=== PATIENT | female | born 1945 | race Caucasian/White ===

== ENCOUNTER 2017-05-23 08:58 | Inpatient (IN) | payer OTHER, MEDICARE ==
[2017-05-22 09:27] VITALS: BMI 43.6
--- NOTE | 2017-05-23 11:09 | HP ---
[facility] - Chief Complaint Chief Complaint: right knee hematoma/infection - Past Medical History Allergies/Adverse Reactions: Allergies Allergy/AdvReac Type Severity Reaction Status Date / Time ciprofloxacin [From Cipro] Allergy "RASH ON Verified 05/23/17 10:09 LEGS ciprofloxacin HCl Allergy "RASH ON Verified 05/23/17 10:09 [From Cipro] LEGS montelukast sodium Allergy "HALLUCINAT Verified 05/23/17 10:09 [From Singulair] IONS" rofecoxib [From Vioxx] Allergy "DIDN'T Verified 05/23/17 10:09 FEEL RIGHT" Sulfa (Sulfonamide Allergy "RASH ON Verified 05/23/17 10:09 Antibiotics) LEGS" - Current Medications Current Medications: Home Medications Medication Instructions Recorded Beclomethasone Dipropionate [Qvar] 8.7 gm IH DAILY 05/22/17 Calcium Carbonate [Calcium] 1,000 mg PO BID 05/22/17 Cephalexin [Keflex] 500 mg PO TID 05/22/17 Cinnamon Bark [Cinnamon] 1,000 mg PO DAILY 05/22/17 Cyclosporine [Restasis] 1 each OU BID 05/22/17 Desmopressin Acetate 0.4 mg PO HS 05/22/17 Fesoterodine Fumarate [Toviaz] 8 mg PO HS 05/22/17 Fluticasone Prop 0.05% Nasal 2 spray NS HS 05/22/17 [Flonase -] Folic Acid - 3 mg PO DAILY 05/22/17 Furosemide [Lasix] 20 mg PO DAILY 05/22/17 Ipratropium/Albuterol Sulfate 4 gm IH DAILY 05/22/17 [Combivent Respimat Inhal [place]] Losartan Potassium 100 mg PO DAILY 05/22/17 Meloxicam [Mobic (Nf) -] 15 mg PO DAILY 05/22/17 Multivit-Min/FA/Lycopen/Lutein 1 each PO DAILY 05/22/17 [Centrum Silver Tablet] Oxycodone HCl/Acetaminophen 1 each PO PRN PRN 05/22/17 [Oxycodone-Acetaminophen 5-325] Ropinirole HCl 1 mg PO DAILY 05/22/17 Ropinirole HCl 3 mg PO HS 05/22/17 Rosuvastatin Calcium [Crestor] 10 mg PO HS 05/22/17 Topiramate 100 mg PO BID 05/22/17 Ubidecarenone [Co Q10] 200 mg PO HS 05/22/17 Warfarin Sodium [Coumadin] 5 mg PO DAILY 05/22/17 Satellite Physical Exam - Physical Examination Vital Signs: Vital Signs Period Temp Pulse Resp BP Sys/Dennis Pulse Ox Last 24 Hr 97.8 F 78 20 132/82 96 General Appearance: Well Nourished, Well Developed, Alert & Oriented x3, Obese ENT: Clear Lung: Normal air movement Heart: Regular rate & rhythm Extremities: Other (right knee- + open wound, + swelling, + erythema, rom 0-90, calf soft, nt) Neurological: Intact, Alert, Oriented Satellite Impression/Plan - Impression/Plan Impression: right knee hematoma/infection Operative Procedure: right knee I & D, vac dressing placement Date to be Performed: 05/23/17
[2017-05-23] MEDS ORDERED: KETAMINE HCL 200 MG/20 ML VIAL ONE (11:25)
[2017-05-23] MEDS ORDERED: MIDAZOLAM HCL 2 MG/2 ML SINGLE DOSE VIAL ONE (11:25)
[2017-05-23] MEDS ORDERED: ceFAZolin SODIUM 1 GM VIAL ONE (11:31)
[2017-05-23] MEDS ORDERED: hydrALAZINE HCL 20 MG/ML VIAL ONE (11:34)
[2017-05-23] MEDS ORDERED: ceFAZolin SODIUM 1 GM VIAL IVPB ONE (11:34)
--- NOTE | 2017-05-23 11:50 | OP ---
Operative Note - Note: Operative Date: 05/23/17 ([facility]) Pre-Operative Diagnosis: right knee non-healing wound/hematoma Operation: right knee I & D, vac dressing placement Post-Operative Diagnosis: Same as Pre-op Surgeon: Tom Lopez Drum Plater: Anup Briggs Anesthesiologist/BAKER PIE: Shirley Trinidad Anesthesia: MAC Operative Report Dictated: Yes
[2017-05-23] MEDS ORDERED: ONDANSETRON 4 MG/2 ML VIAL IVPUSH PRN (11:55)
--- NOTE | 2017-05-23 12:37 | OP ---
DATE OF OPERATION: 05/23/2017 PREOPERATIVE DIAGNOSIS: Large wound, anterior aspect of the right knee. POSTOPERATIVE DIAGNOSIS: Large wound, anterior aspect of the right knee. PROCEDURE: Irrigation and debridement and application of vacuum-assisted closure dressing. SURGICAL ATTENDING: Tom Lopez MD GRINDER NEEDLE TIP: ANA M Michaels ANESTHESIA: IV sedation. CLOSURE: VAC dressing. COMPLICATIONS: None. CONDITION: To recovery room in stable condition. DESCRIPTION OF OPERATIVE PROCEDURE: Patient taken to the operating room on May 23, 2017. IV sedation was administered by the anesthesiologist. IV Kefzol was administered prior to the case. The packing inside the wound on the anterior aspect of the knee was removed. The right lower extremity was prepped and draped in the usual sterile fashion. The wound on the anterior aspect of the knee medial to the longitudinal incision measured approximately 2 inches by 2 inches and extended underneath and was undermined a few inches in each direction. This was pulse antibiotic irrigated with antibiotic irrigation, but no defects in the fascia into the knee were detected. A great deal of antibiotic irrigation was irrigated throughout the incision. After it was nice and clean and only healthy tissue was encountered, the wound was dried all around and inside the incision. A VAC pad was deployed into the wound and then the VAC dressing was applied. Good seal was obtained and it was hooked up to the VAC machine and achieved a good seal with good suction on the wound. The patient was awakened from anesthesia and transferred to the recovery room in stable condition. No complications. Estimated blood loss negligible. Marleen CRISTINA/[id number]
[2017-05-23] MEDS: LACTATED RINGERS SOLUTION 1,000 ML IV SCH (14:00)
[2017-05-23] MEDS ORDERED: oxyCODONE HCL 5 MG TABLET PO PRN (14:25)
[2017-05-23] MEDS: oxyCODONE HCL 5 MG TABLET PO PRN (15:19)
[2017-05-23] MEDS: HYDROmorphone HCL CARPU-JECT 1 MG/1 ML DISP.SYRIN IVPUSH PRN ×2 (16:42→21:44)
[2017-05-23] MEDS ORDERED: CEFAZOLIN 1 GM in DEXTROSE 5%-WATER - 50 ML IVPB SCH (19:30)
[2017-05-23] MEDS ORDERED: PT OWN MED DRAWER 7, Y5N ONE (21:28)
[2017-05-23] MEDS: CEFAZOLIN 1 GM in DEXTROSE 5%-WATER - 50 ML IVPB SCH (21:40)
[2017-05-23] MEDS: ROSUVASTATIN CA 10 MG TABLET (FP) PO SCH (21:41)
[2017-05-23] MEDS: rOPINIRole HCL 3 MG TABLET PO SCH (21:42)
[2017-05-23] MEDS ORDERED: PATIENT'S OWN MEDICATION (NON-FORMULARY) (Cyclosporine [Restasis] 1 EACH) OU SCH (22:00)
[2017-05-23] MEDS ORDERED: PATIENT'S OWN MEDICATION (NON-FORMULARY) (Fesoterodine Fumarate [Toviaz] 8 MG) PO SCH (22:00)
[2017-05-23] MEDS: TOPIRAMATE 100 MG TABLET PO SCH (22:56)
[2017-05-23] MEDS: DESMOPRESSIN ACETATE 0.2 MG TABLET PO SCH (22:56)
[2017-05-24] MEDS: CEFAZOLIN 1 GM in DEXTROSE 5%-WATER - 50 ML IVPB SCH ×2 (04:53→17:36)
[2017-05-24] MEDS: HYDROmorphone HCL CARPU-JECT 1 MG/1 ML DISP.SYRIN IVPUSH PRN ×2 (05:53→13:38)
[2017-05-24] MEDS ORDERED: ONDANSETRON 4 MG/2 ML VIAL IVPUSH PRN (09:10)
[2017-05-24] MEDS ORDERED: ONDANSETRON 4 MG/2 ML VIAL ONE (09:13)
[2017-05-24] MEDS ORDERED: PATIENT'S OWN MEDICATION (NON-FORMULARY) (Ipratropium/Albuterol Sulfate [Combivent Respima IH SCH (10:00)
[2017-05-24] MEDS ORDERED: PATIENT'S OWN MEDICATION (NON-FORMULARY) (Beclomethasone Dipropionate [Qvar] 8.7 GM) IH SCH (10:00)
[2017-05-24] MEDS ORDERED: PT OWN MED DRAWER 7, Y5N ONE ×3 (11:43→22:05)
[2017-05-24] MEDS: LOSARTAN POTASSIUM 50 MG TABLET (FP) PO SCH (11:52)
[2017-05-24] MEDS: rOPINIRole HCL 1 MG TABLET (FP) PO SCH (11:52)
[2017-05-24] MEDS: FUROSEMIDE 20 MG TABLET (FP) PO SCH (11:52)
[2017-05-24] MEDS: TOPIRAMATE 100 MG TABLET PO SCH ×2 (11:53→21:01)
[2017-05-24] MEDS: LACTATED RINGERS SOLUTION 1,000 ML IV SCH (12:09)
--- NOTE | 2017-05-24 14:39 | PN ---
Progress Note (short form) - Note Progress Note: Anesthesia postop note 71 y/o F s/p TIVA for i&d right knee POD#1, alert and oriented, c/o pain, vss No anesthesia complications.
--- NOTE | 2017-05-24 16:00 | PN ---
Progress Note (short form) - Note Progress Note: FULL CONSULT DICTATED BY DOCTOR LENRosa M CONTINUE VAC, ABX,VASCULAR CONSULT
--- NOTE | 2017-05-24 16:24 | PN ---
DATE OF VISIT: 05/24/2017 Patient's VAC is in place. Good suction fit. Minimal drainage. There is some erythema underneath the adhesive plastic dressing. Might be slightly more than yesterday. We will keep the patient on Kefzol for another 24 hours. She also was initially complaining of some increased pain in her calf. We did an ultrasound which is equivocal. I will have a vascular surgeon evaluate her for possible treatment, but on physical exam, her calf is soft, nontender, and she has good range of motion with no change in her physical exam from before. Therefore, we will keep the VAC going. She is on her Coumadin, and I will see her tomorrow, see how she is doing. ZAK ESPINAL M.D. [id number]
[2017-05-24 16:42] LABS: INR 1.16 (0.82-1.09); PROTHROMBIN TIME (PATIENT) 12.8 SEC (9.98-11.88)
[2017-05-24] MEDS ORDERED: ceFAZolin SODIUM 1 GM VIAL ONE (17:01)
[2017-05-24] MEDS ORDERED: DEXTROSE 5%-WATER - 50 ML IVPB ONE (17:01)
[2017-05-24] MEDS: WARFARIN NA 5 MG TABLET (UD) PO SCH (17:36)
[2017-05-24] MEDS: DESMOPRESSIN ACETATE 0.2 MG TABLET PO SCH (21:00)
[2017-05-24] MEDS: oxyCODONE HCL 5 MG TABLET PO PRN (21:00)
[2017-05-24] MEDS: ROSUVASTATIN CA 10 MG TABLET (FP) PO SCH (21:00)
[2017-05-24] MEDS: rOPINIRole HCL 3 MG TABLET PO SCH (21:01)
[2017-05-25] MEDS ORDERED: ceFAZolin SODIUM 1 GM VIAL ONE ×2 (01:05→09:33)
[2017-05-25] MEDS ORDERED: DEXTROSE 5%-WATER - 50 ML IVPB ONE ×2 (01:06→09:33)
[2017-05-25] MEDS: CEFAZOLIN 1 GM in DEXTROSE 5%-WATER - 50 ML IVPB SCH ×2 (01:08→09:38)
[2017-05-25] MEDS: oxyCODONE HCL 5 MG TABLET PO PRN ×3 (03:20→19:35)
[2017-05-25 08:44] LABS: INR 1.16 (0.82-1.09); PROTHROMBIN TIME (PATIENT) 12.8 SEC (9.98-11.88)
[2017-05-25] MEDS ORDERED: HEPARIN NA (PORCINE) 5,000 UNITS/ML 1ML VIAL IVPUSH PRN ×3 (09:02→09:04)
--- NOTE | 2017-05-25 09:02 | PN ---
Progress Note (short form) - Note Progress Note: Vascular Surgery Pt seen and examined. US reviewed -- there is no dvt in both legs. Pt has a history of a multitude of DVT's in the past. She is on life long coumadin. She stopped the coumadin 2 days prior to coming for the I&d. Coumadin is now restarted. Will bridge with IV heparin. Can be dC home once INR is therapeutic. Pedro ewing DO
[2017-05-25] MEDS ORDERED: HEPARIN INFUSION - 500 ML IVPB SCH (09:15)
[2017-05-25] MEDS ORDERED: PT OWN MED DRAWER 7, Y5N ONE ×2 (09:32→21:30)
[2017-05-25] MEDS: HYDROmorphone HCL CARPU-JECT 1 MG/1 ML DISP.SYRIN IVPUSH PRN (09:37)
[2017-05-25] MEDS: rOPINIRole HCL 1 MG TABLET (FP) PO SCH (09:38)
[2017-05-25] MEDS: TOPIRAMATE 100 MG TABLET PO SCH ×2 (09:38→21:31)
[2017-05-25] MEDS: FUROSEMIDE 20 MG TABLET (FP) PO SCH (09:38)
[2017-05-25] MEDS: LOSARTAN POTASSIUM 50 MG TABLET (FP) PO SCH (09:38)
--- NOTE | 2017-05-25 10:39 | PN ---
Progress Note (short form) - Note Progress Note: Ortho Pt seen and examined s/p right knee I&D, vac placement pod #2 Selected Entries 05/25/17 06:00 Temperature 98.2 F Pulse Rate 74 Respiratory 20 Rate Blood Pressure 113/64 Laboratory Tests 05/25/17 07:50 INR 1.[address], +erythema, nvi a/p PT, wbat continue IV abx heparin bridge until INR therapeutic Coumadin d/c planning
[2017-05-25] MEDS: LACTATED RINGERS SOLUTION 1,000 ML IV SCH (11:24)
[2017-05-25 16:01] LABS: ALBUMIN 2.9 g/dl (3.4-5.0); ANION GAP 8 (8-16); CALCIUM 8.2 mg/dL (8.5-10.1); CO2 27 mmol/L (21-32); GLUCOSE,RANDOM 125 mg/dL (74-106)
[2017-05-25 16:04] LABS: ALK PHOS 58 U/L (45-117); BILIRUBIN,TOTAL 0.4 mg/dL (0.2-1.0); CREATININE 0.7 mg/dL (0.55-1.02); SGOT/AST 14 U/L (15-37); SGPT/ALT 20 U/L (12-78); TOT PROT 5.6 g/dl (6.4-8.2)
[2017-05-25] MEDS: WARFARIN NA 5 MG TABLET (UD) PO SCH (17:29)
[2017-05-25] MEDS: ENOXAPARIN NA (PORCINE) 40 MG/0.4 ML DISP.SYRIN SQ SCH (17:29)
[2017-05-25] MEDS: rOPINIRole HCL 3 MG TABLET PO SCH (21:31)
[2017-05-25] MEDS: DESMOPRESSIN ACETATE 0.2 MG TABLET PO SCH (21:31)
[2017-05-25] MEDS: ROSUVASTATIN CA 10 MG TABLET (FP) PO SCH (21:31)
[2017-05-26] MEDS: oxyCODONE HCL 5 MG TABLET PO PRN ×4 (00:02→21:24)
[2017-05-26 07:48] LABS: MCH 28.9 pg (25.7-33.7); MCHC 33.1 g/dl (32.0-36.0); MEAN CELL VOLUME 87.3 fl (80-96); MEAN PLT VOLUME 6.9 fl (7.5-11.1); PLATELET COUNT 211 K/MM3 (134-434); RDW 15.5 % (11.6-15.6); WHITE BLOOD COUNT 9.8 K/mm3 (4.0-10.0)
[2017-05-26 09:10] LABS: INR 1.28 (0.82-1.09); PROTHROMBIN TIME (PATIENT) 14.2 SEC (9.98-11.88)
[2017-05-26] MEDS ORDERED: DEXTROSE 5%-WATER 100 ML IVPB ONE ×2 (10:59→16:52)
[2017-05-26] MEDS ORDERED: PT OWN MED DRAWER 7, Y5N ONE ×2 (10:59→21:00)
[2017-05-26] MEDS ORDERED: ceFAZolin SODIUM 1 GM VIAL ONE ×2 (10:59→16:52)
[2017-05-26] MEDS: rOPINIRole HCL 1 MG TABLET (FP) PO SCH (11:18)
[2017-05-26] MEDS: ENOXAPARIN NA (PORCINE) 40 MG/0.4 ML DISP.SYRIN SQ SCH (11:18)
[2017-05-26] MEDS: LOSARTAN POTASSIUM 50 MG TABLET (FP) PO SCH (11:19)
[2017-05-26] MEDS: TOPIRAMATE 100 MG TABLET PO SCH ×2 (11:19→21:20)
[2017-05-26] MEDS: FUROSEMIDE 20 MG TABLET (FP) PO SCH (11:19)
[2017-05-26] MEDS: CEFAZOLIN 1 GM in DEXTROSE 5%-WATER 100 ML IVPB SCH ×2 (11:24→17:15)
[2017-05-26] MEDS: WARFARIN NA 5 MG TABLET (UD) PO SCH (17:16)
[2017-05-26] MEDS: ACETAMINOPHEN 325 MG TABLET (FP) PO PRN (17:16)
[2017-05-26] MEDS ORDERED: oxyCODONE HCL 5 MG TABLET PO PRN (18:24)
[2017-05-26] MEDS: rOPINIRole HCL 3 MG TABLET PO SCH (21:21)
[2017-05-26] MEDS: ROSUVASTATIN CA 10 MG TABLET (FP) PO SCH (21:22)
[2017-05-26] MEDS: DESMOPRESSIN ACETATE 0.2 MG TABLET PO SCH (23:42)
[2017-05-27] MEDS ORDERED: DEXTROSE 5%-WATER 100 ML IVPB ONE ×3 (00:56→16:25)
[2017-05-27] MEDS ORDERED: ceFAZolin SODIUM 1 GM VIAL ONE ×3 (00:56→16:25)
[2017-05-27] MEDS: CEFAZOLIN 1 GM in DEXTROSE 5%-WATER 100 ML IVPB SCH ×3 (01:16→18:03)
[2017-05-27] MEDS ORDERED: PT OWN MED DRAWER 7, Y5N ONE ×2 (05:57→10:12)
[2017-05-27] MEDS: oxyCODONE HCL 5 MG TABLET PO PRN ×2 (06:08→21:27)
[2017-05-27] MEDS: ACETAMINOPHEN 325 MG TABLET (FP) PO PRN (06:10)
[2017-05-27 08:44] LABS: MCH 29.3 pg (25.7-33.7); MCHC 33.7 g/dl (32.0-36.0); MEAN CELL VOLUME 86.9 fl (80-96); MEAN PLT VOLUME 7.3 fl (7.5-11.1); PLATELET COUNT 209 K/MM3 (134-434); RDW 15.9 % (11.6-15.6)
[2017-05-27] MEDS: ENOXAPARIN NA (PORCINE) 40 MG/0.4 ML DISP.SYRIN SQ SCH (10:14)
[2017-05-27] MEDS: LOSARTAN POTASSIUM 50 MG TABLET (FP) PO SCH (10:17)
[2017-05-27] MEDS: FUROSEMIDE 20 MG TABLET (FP) PO SCH (10:17)
[2017-05-27] MEDS: [UNRECOGNIZED DRUG - OTHER] PO SCH (10:18)
[2017-05-27] MEDS: MELOXICAM 15 MG PO SCH (10:18)
[2017-05-27] MEDS: rOPINIRole HCL 1 MG TABLET (FP) PO SCH (10:19)
[2017-05-27] MEDS: TOPIRAMATE 100 MG TABLET PO SCH ×2 (10:20→21:24)
[2017-05-27] MEDS: WARFARIN NA 5 MG TABLET (UD) PO SCH (18:03)
[2017-05-27] MEDS: DESMOPRESSIN ACETATE 0.2 MG TABLET PO SCH (21:22)
[2017-05-27] MEDS: ROSUVASTATIN CA 10 MG TABLET (FP) PO SCH (21:23)
[2017-05-27] MEDS: rOPINIRole HCL 3 MG TABLET PO SCH (21:25)
[2017-05-28] MEDS ORDERED: DEXTROSE 5%-WATER 100 ML IVPB ONE (02:37)
[2017-05-28] MEDS ORDERED: ceFAZolin SODIUM 1 GM VIAL ONE (02:37)
[2017-05-28] MEDS: CEFAZOLIN 1 GM in DEXTROSE 5%-WATER 100 ML IVPB SCH (02:40)
[2017-05-28] MEDS: oxyCODONE HCL 5 MG TABLET PO PRN ×4 (05:36→20:40)
[2017-05-28 07:48] LABS: MCHC 33.1 g/dl (32.0-36.0); MEAN CELL VOLUME 87.5 fl (80-96); PLATELET COUNT 205 K/MM3 (134-434); RDW 15.9 % (11.6-15.6); WHITE BLOOD COUNT 7.2 K/mm3 (4.0-10.0)
--- NOTE | 2017-05-28 08:51 | PN ---
Progress Note (short form) - Note Progress Note: ID Full note dictated S/P knee surgery with placement of VAC for ? Hematoma related to fall at home underlying TKR bilaterally Selected Entries 05/28/17 06:00 Temperature 98.7 F Pulse Rate 78 Respiratory 18 Rate Blood Pressure 132/69 Weight 274 lb Assessment Unclear any infection Post VAC dressing Plan Stop antibiotic Place consult to Hospitalist for medical management Laboratory Tests 05/25/17 05/28/17 14:45 06:00 WBC 7.2 Hgb 11.1 Plt Count 205 Random Glucose 125 H Total Bilirubin 0.4 AST 14 L ALT 20 Problem List - Problems (1) Hematoma Code(s): T14.8 - OTHER INJURY OF UNSPECIFIED BODY REGION (2) Encounter for attention to vacuum-assisted closure (VAC) device Code(s): IIF3410 -
[2017-05-28] MEDS ORDERED: PT OWN MED DRAWER 7, Y5N ONE ×2 (09:34→21:26)
[2017-05-28] MEDS: ENOXAPARIN NA (PORCINE) 40 MG/0.4 ML DISP.SYRIN SQ SCH (09:38)
[2017-05-28] MEDS: LOSARTAN POTASSIUM 50 MG TABLET (FP) PO SCH (09:38)
[2017-05-28] MEDS: FUROSEMIDE 20 MG TABLET (FP) PO SCH (09:38)
[2017-05-28] MEDS: rOPINIRole HCL 1 MG TABLET (FP) PO SCH (09:39)
[2017-05-28] MEDS: TOPIRAMATE 100 MG TABLET PO SCH ×2 (09:40→21:51)
[2017-05-28] MEDS: [UNRECOGNIZED DRUG - OTHER] PO SCH (09:41)
[2017-05-28] MEDS: MELOXICAM 15 MG PO SCH (09:41)
--- NOTE | 2017-05-28 11:14 | CONSULT ---
Consultation: REQUESTING PROVIDER: Dr. Ramirez Arguello CONSULT REQUEST: We have been asked to medically evaluate this patient for medical management post op. PCP: Dr. Joyce Ortho: Dr. ESPINAL HISTORY OF PRESENT ILLNESS: 71 yo F with significant PMHx DVT's(on coumadin), Bilateral total knee replacements, and CHF presented for irrigation and debridement of large right knee wound. On 05/21/17 she fell at home tripped over a vacuum cord. She subsequently went to see her orthopedic surgeon who told her to stop her coumadin and come to hospital in 2 days for irrigation and debridement. Tolerated the procedure well. Wound vac was placed. Started on Lovenox. Pain is well controlled. Currently denies CP,SOB, palpitations, abd. pain, N/V. PMHx: DVT's(on coumadin), restless leg, chronic migraines, neurogenic bladder, chronic neck pain(herniated disc) and CHF PSHX: bilateral total knee replacement, CCY, Appendectomy, hysterectomy, cystocele sling Social: Lives with , non smoker, denies ETOH or drug use. Allergies Allergy/AdvReac Type Severity Reaction Status Date / Time ciprofloxacin [From Cipro] Allergy "RASH ON Verified 05/23/17 10:09 LEGS ciprofloxacin HCl Allergy "RASH ON Verified 05/23/17 10:09 [From Cipro] LEGS montelukast sodium Allergy "HALLUCINAT Verified 05/23/17 10:09 [From Singulair] IONS" rofecoxib [From Vioxx] Allergy "DIDN'T Verified 05/23/17 10:09 FEEL RIGHT" Sulfa (Sulfonamide Allergy "RASH ON Verified 05/23/17 10:09 Antibiotics) LEGS" Home Medications Medication Instructions Recorded Beclomethasone Dipropionate [Qvar] 8.7 gm IH DAILY 05/22/17 Calcium Carbonate [Calcium] 1,000 mg PO BID 05/22/17 Cephalexin [Keflex] 500 mg PO TID 05/22/17 Cinnamon Bark [Cinnamon] 1,000 mg PO DAILY 05/22/17 Cyclosporine [Restasis] 1 each OU BID 05/22/17 Desmopressin Acetate 0.4 mg PO HS 05/22/17 Fesoterodine Fumarate [Toviaz] 8 mg PO HS 05/22/17 Fluticasone Prop 0.05% Nasal 2 spray NS HS 05/22/17 [Flonase -] Folic Acid - 3 mg PO DAILY 05/22/17 Furosemide [Lasix] 20 mg PO DAILY 05/22/17 Ipratropium/Albuterol Sulfate 4 gm IH DAILY 05/22/17 [Combivent Respimat Inhal [place]] Losartan Potassium 100 mg PO DAILY 05/22/17 Meloxicam [Mobic (Nf) -] 15 mg PO DAILY 05/22/17 Multivit-Min/FA/Lycopen/Lutein 1 each PO DAILY 05/22/17 [Centrum Silver Tablet] Oxycodone HCl/Acetaminophen 1 each PO PRN PRN 05/22/17 [Oxycodone-Acetaminophen 5-325] Ropinirole HCl 1 mg PO DAILY 05/22/17 Ropinirole HCl 3 mg PO HS 05/22/17 Rosuvastatin Calcium [Crestor] 10 mg PO HS 05/22/17 Topiramate 100 mg PO BID 05/22/17 Ubidecarenone [Co Q10] 200 mg PO HS 05/22/17 Warfarin Sodium [Coumadin] 5 mg PO DAILY 05/22/17 REVIEW OF SYSTEMS: CONSTITUTIONAL: Absent: fever, chills, diaphoresis, generalized weakness, malaise, loss of appetite, weight change HEENT: Absent: rhinorrhea, nasal congestion, throat pain, throat swelling, difficulty swallowing, mouth swelling, ear pain, eye pain, visual changes CARDIOVASCULAR: Absent: chest pain, syncope, palpitations, irregular heart rate, lightheadedness , peripheral edema RESPIRATORY: Absent: cough, shortness of breath, dyspnea with exertion, orthopnea, wheezing, stridor, hemoptysis GASTROINTESTINAL: Absent: abdominal pain, abdominal distension, nausea, vomiting, diarrhea, constipation, melena, hematochezia GENITOURINARY: Absent: dysuria, frequency, urgency, hesitancy, hematuria, flank pain, genital pain MUSCULOSKELETAL: joint swelling, back pain, neck pain Absent: myalgia, arthralgia, SKIN: Absent: rash, itching, pallor HEMATOLOGIC/IMMUNOLOGIC: Absent: easy bleeding, easy bruising, lymphadenopathy, frequent infections ENDOCRINE: Absent: unexplained weight gain, unexplained weight loss, heat intolerance, cold intolerance NEUROLOGIC: headache Absent: , focal weakness or paresthesias, dizziness, unsteady gait, seizure, mental status changes, bladder or bowel incontinence PSYCHIATRIC: Absent: anxiety, depression, suicidal or homicidal ideation, hallucinations. PHYSICAL EXAMINATION Vital Signs - 24 hr 05/27/17 05/27/17 05/27/17 15:49 20:23 20:27 Temperature 98.2 F 99.1 F Pulse Rate 85 81 Respiratory 18 20 Rate Blood Pressure 145/61 129/72 O2 Sat by Pulse 96 Oximetry (%) 05/28/17 05/28/17 06:00 10:12 Temperature 98.7 F Pulse Rate 78 87 Respiratory 18 Rate Blood Pressure 132/69 O2 Sat by Pulse 97 Oximetry (%) GENERAL: AAOx3, NAD HEAD:NC/AT EYES: PERRLA,EOMI, sclera anicteric, conjunctiva clear. No lid lag. EARS, NOSE, THROAT: Moist mucous membranes. NECK: supple, no jvd LUNGS: CTAB. No wheezes, and no crackles. No accessory muscle use. HEART: RRR with no m/g/r MUSCULOSKELETAL: Decreased ROM on right leg s/p wound vac placement. No CVA tenderness. UPPER EXTREMITIES: 2+ pulses, warm, well-perfused. No cyanosis. No clubbing. No peripheral edema. LOWER EXTREMITIES: 2+ pulses DP , warm, well-perfused. No calf tenderness. No peripheral edema. right knee has wound vac with surrounding erythema but no warmth. Chronic venous stasis changes bilateral lower ext. NEUROLOGICAL: Cranial nerves II-XII intact. Normal speech. gait not observed. PSYCHIATRIC: Cooperative. Good eye contact. Appropriate mood and affect. SKIN: Warm, dry, normal turgor, no rashes or lesions noted. Laboratory Results - last 24 hr 05/28/17 05/28/17 05/28/17 06:00 06:00 08:50 WBC 7.2 RBC 3.82 Hgb 11.1 Hct 33.4 MCV 87.5 MCH 29.0 MCHC 33.1 RDW 15.9 H Plt Count 205 MPV 7.0 L PTT (Actin FS) 28.8 C-Reactive Protein 15.4 H Active Medications Generic Name Dose Route Start Last Admin Trade Name Freq PRN Reason Stop Dose Admin Acetaminophen 325 mg 05/23/17 14:25 05/27/17 06:10 Tylenol - PO 325 mg Q6H PRN Administration PAIN Desmopressin Acetate 0.4 mg 05/23/17 22:00 05/27/17 21:22 Ddavp - PO 0.4 mg HS RAMBO Administration Enoxaparin Sodium 40 mg 05/25/17 17:00 05/28/17 09:38 Lovenox - SQ 40 mg DAILY RAMBO Administration Furosemide 20 mg 05/24/17 10:00 05/28/17 09:38 Lasix - PO 20 mg DAILY RAMBO Administration Losartan Potassium 100 mg 05/24/17 10:00 05/28/17 09:38 Cozaar - PO 100 mg DAILY RAMBO Administration Non-Formulary Medication 8.7 gm 05/24/17 10:00 Beclomethasone Dipropionate [Qvar] IH DAILY [facility] Non-Formulary Medication 1 each 05/23/17 22:00 Cyclosporine [Restasis] OU BID [facility] Non-Formulary Medication 8 mg 05/23/17 22:00 Fesoterodine Fumarate [Toviaz] PO HS [facility] Non-Formulary Medication 4 gm 05/24/17 10:00 Ipratropium/Albuterol Sulfate [Combivent Respimat Inhal [place]] IH DAILY [facility] Meloxicam 15 Mg 1 each 05/27/17 10:00 05/28/17 09:41 Tabletsnon-Formulary PO 1 each Med DAILY [facility] Administration Ondansetron HCl 4 mg 05/24/17 09:10 05/24/17 09:15 Zofran Injection IVPUSH 4 mg Q6H PRN Administration NAUSEA Oxycodone HCl 10 mg 05/26/17 17:00 05/28/17 05:36 Roxicodone - PO 10 mg Q4H PRN Administration PAIN Ropinirole HCl 1 mg 05/24/17 10:00 05/28/17 09:39 Requip - PO 1 mg DAILY [facility] Administration Ropinirole HCl 3 mg 05/23/17 22:00 05/27/17 21:25 Requip - PO 3 mg HS [facility] Administration Rosuvastatin Calcium 10 mg 05/23/17 22:00 05/27/17 21:23 Crestor - PO 10 mg HS [facility] Administration Topiramate 100 mg 05/23/17 22:00 05/28/17 09:40 Topamax - PO 100 mg BID RAMBO Administration Warfarin Sodium 5 mg 05/24/17 18:00 05/27/17 18:03 Coumadin - PO 5 mg DAILY@1800 RAMBO Administration ASSESSMENT/PLAN: 71 yo F with significant PMHx DVT's(on coumadin), Bilateral total knee replacements, and CHF admitted for irrigation and vac placement of large R knee effusion. Dispo: We will continue to follow the patient. Thank you for this consultative opportunity. Problem List - Problems (1) Encounter for attention to vacuum-assisted closure (VAC) device Assessment/Plan: * Wound vac in place and draining serosangiunis fluid. * Has vac at home with daughter. * Will need VNS to manage at home. * To be discussed with briefcase sewer today. (2) Right knee injury Assessment/Plan: * s/p irrigation and debridement POD #5 * Pain well controlled. * wound vac in place. * Evaluated by Infectious disease. No antibiotics indicated at this time. * Ortho for further management and discharge planning. (3) CHF (congestive heart failure) Assessment/Plan: * Dr. Cortes is her foot and ankle surgeon. * unsure of last echo. * Currently asymtomatic. * Will continue with Lasix 20mg PO and Losartan 100mg BID (4) HLD (hyperlipidemia) Assessment/Plan: * continue statin Crestor 10mg PO HS (5) Chronic migraine Assessment/Plan: * Dr. Corbett is her neurologist. * Well controlled with Topiromate will continue 100mg PO BID/ (6) Restless leg syndrome Assessment/Plan: * well controlled on Ropinirole (7) History of DVT (deep vein thrombosis) Assessment/Plan: * Coumadin restarted on 5mg PO daily * will recheck INR today. (8) COPD (chronic obstructive pulmonary disease) Assessment/Plan: * Followed by Dr. Jo * Well controlled at this time * Continue: * Beclomethasone Dipropionate 8.7 gm IH DAILY * Ipratropium/Albuterol Sulfate 4 gm IH DAILY (9) Neurogenic dysfunction of the urinary bladder Assessment/Plan: * continue * Desmopressin Acetate (Ddavp -) 0.4 mg PO HS * Fesoterodine Fumarate [Toviaz]) 8 mg PO HS (10) DVT prophylaxis Assessment/Plan: * SCD's bilaterally * On coumadin (sub-therapeutic) and Lovenox at this time Visit type - Emergency Visit Emergency Visit: Yes ED Registration Date: 05/24/17 Care time: The patient presented to the Emergency Department on the above date and was hospitalized for further evaluation of their emergent condition. - New Patient This patient is new to me today: Yes Date on this admission: 05/28/17 - Critical Care Critical Care patient: No
--- NOTE | 2017-05-28 11:16 | CONS ---
INFECTIOUS DISEASE CONSULTATION DATE OF CONSULTATION: DATE OF DICTATION: 05/28/2017 This is a 71-year-old female who apparently I am asked to evaluate postoperatively, after having drainage of a right knee hematoma. The chief complaint on the admitting history says right knee hematoma/infection. However, the patient tells me that she knows nothing about infection and was told postoperatively in fact that there was no infection. I have attempted to reach Dr. Curry regarding further medical record and details of her case. The patient is apparently anticoagulated with 5 mg of Coumadin daily. She states that recently she took a fall at home, landing on a carpet and sustaining a hematoma to the right knee. Note that the patient has bilateral knee replacements, but both of these had been done many years ago. She did not report any chronic issues related to the prostheses since the time of her original surgery. She was seen in Dr. Curry's office and states that Dr. Curry attempted to manually remove blood from the wound. She is admitted now and taken to the operating room on the day of admission electively with surgical procedure indicating a large wound on the anterior aspect of the right knee. Irrigation and debridement and application of a vacuum-assisted closure device was placed. This was apparently done by Dr. Lopez. Reviewing the operative note indicates that it was clean with "only healthy tissue encountered." The VAC dressing was then placed and I do not find record of a wound culture having been sent. She denies any fever, chills or other systemic complaints. MEDICATIONS: Cozaar, Lovenox, Coumadin, Crestor, Lasix, Roxicodone. ALLERGIES: CIPROFLOXACIN; SINGULAIR. SOCIAL HISTORY: Lives at home. Nonsmoker. No history of alcohol use. FAMILY HISTORY: Reviewed. REVIEW OF SYSTEMS: Reviewed. All systems noncontributory. PHYSICAL EXAMINATION: General: She was a heavy-set woman, 274 pounds, alert and in no acute distress. Vital signs: The temperature was 98.7, pulse 78, blood pressure 132/69, respirations 18. Neck: Supple. Lungs: Clear. Heart: S1, S2. Regular rhythm. No murmur. Abdomen: Soft, nontender without organomegaly. Extremities: Reveal what appear to be ecchymoses of the right knee with placement of a VAC dressing. The white count was 9.8 on admission, with a hemoglobin of 11.4, and platelets of 211. INR of 1.28 on May 26. BUN/creatinine 16 and 0.7. ASSESSMENT: A 71-year-old female with a history of bilateral knee replacements, anticoagulated, presents with a hematoma of the right knee which was debrided, with apparently no gross evidence of infection. She received perioperative antibiotics with cefazolin, but I am going to discontinue this at this time given the apparent absence of any infection. A CRP will be ordered and I will take the liberty of calling the hospitalist service to see the patient while in the hospital, given her anticoagulation issues and other medical issues. MIKAYLA ALFARO M.D. [id number]
[2017-05-28 12:23] LABS: INR 1.78 (0.82-1.09); PROTHROMBIN TIME (PATIENT) 19.8 SEC (9.98-11.88)
--- NOTE | 2017-05-28 13:30 | PN ---
Teaching Attending Note Name of Resident: Srinivas Guzman ATTENDING PHYSICIAN STATEMENT I saw and evaluated the patient. I reviewed the resident's note and discussed the case with the resident. I agree with the resident's findings and plan as documented. SUBJECTIVE: This is a 71 year old woman with a history of DVTs, CHF, bilateral total knee replacements, RLS, neurogenic bladder, migraine headaches and cervical herniated disc who tripped and fell sustaining a wound to her right knee on 05/21. She saw her orthopedic surgeon and was diagnoses with a hematoma of allan right knee. She is on Coumadin for DVTs and this was held. She was admitted on 05/23 and underwent irrigation and debridement and application of VAC dressing. Venous dopplers of both legs showed possible partial thrombus in left common femoral and greater saphenous vein. She has been seen by vascular surgery. Coumadin was resumed and heeparin IV drip was started for bridging. OBJECTIVE: Vital Signs Period Temp Pulse Resp BP Sys/Dennis Pulse Ox Last 24 Hr 98.2 F-99.1 F 78-87 18-20 129-145/61-72 96-97 HEART: S1S2, RRR LUNGS: Clear ABDOMEN: Obese, soft, non-tender, non-distended, normal BS EXTREMITIES: No edema. No calf tenderness, VAC dressing on right knee Current Medications Generic Name Dose Route Start Last Admin Trade Name Freq PRN Reason Stop Dose Admin Acetaminophen 325 mg 05/23/17 14:25 05/27/17 06:10 Tylenol - PO 325 mg Q6H PRN Administration PAIN Desmopressin Acetate 0.4 mg 05/23/17 22:00 05/27/17 21:22 Ddavp - PO 0.4 mg HS RAMBO Administration Enoxaparin Sodium 40 mg 05/25/17 17:00 05/28/17 09:38 Lovenox - SQ 40 mg DAILY RAMBO Administration Furosemide 20 mg 05/24/17 10:00 05/28/17 09:38 Lasix - PO 20 mg DAILY RAMBO Administration Losartan Potassium 100 mg 05/24/17 10:00 05/28/17 09:38 Cozaar - PO 100 mg DAILY [facility]BO Administration Non-Formulary Medication 8.7 gm 05/24/17 10:00 Beclomethasone Dipropionate [Qvar] IH DAILY [facility] Non-Formulary Medication 1 each 05/23/17 22:00 Cyclosporine [Restasis] OU BID [facility] Non-Formulary Medication 8 mg 05/23/17 22:00 Fesoterodine Fumarate [Toviaz] PO HS [facility] Non-Formulary Medication 4 gm 05/24/17 10:00 Ipratropium/Albuterol Sulfate [Combivent Respimat Inhal [place]] IH DAILY [facility] Meloxicam 15 Mg 1 each 05/27/17 10:00 05/28/17 09:41 Tabletsnon-Formulary PO 1 each Med DAILY [facility] Administration Ondansetron HCl 4 mg 05/24/17 09:10 05/24/17 09:15 Zofran Injection IVPUSH 4 mg Q6H PRN Administration NAUSEA Oxycodone HCl 10 mg 05/26/17 17:00 05/28/17 11:48 Roxicodone - PO 10 mg Q4H PRN Administration PAIN Ropinirole HCl 1 mg 05/24/17 10:00 05/28/17 09:39 Requip - PO 1 mg DAILY [facility] Administration Ropinirole HCl 3 mg 05/23/17 22:00 05/27/17 21:25 Requip - PO 3 mg HS [facility] Administration Rosuvastatin Calcium 10 mg 05/23/17 22:00 05/27/17 21:23 Crestor - PO 10 mg HS [facility] Administration Topiramate 100 mg 05/23/17 22:00 05/28/17 09:40 Topamax - PO 100 mg BID [facility] Administration Warfarin Sodium 5 mg 05/24/17 18:00 05/27/17 18:03 Coumadin - PO 5 mg DAILY@1800 RAMBO Administration ASSESSMENT AND PLAN: This is a 71 year old woman with a history of DVTs, hyperlipidemia, CHF, bilateral total knee replacements, RLS, neurogenic bladder, migraine headaches and cervical herniated disc 1. Right knee wound with hematoma - s/p irrigation and debridement 05/23 - VAC in place 2. History of DVTs - Continue Coumadin - Continue Lovenox until INR therapeutic 3. Chronic heart failure - Continue Cozaar, Lasix 4. Restless leg syndrome - Continue Requip 5. Neurogenic bladder - Continue Toviaz 6. Migraine headaches - Continue Topamax 7. Hyperlipidemia - Continue Crestor 8. Disposition - Can be discharged on Lovenox/Coumadin
[2017-05-28] MEDS: WARFARIN NA 5 MG TABLET (UD) PO SCH (17:05)
--- NOTE | 2017-05-28 18:16 | PN ---
Progress Note (short form) - Note Progress Note: Pt seen and examined. I spoke with Dr Arguello today, he advised stopping all antibiotics. AVSS Right knee looks better, less erythema, not swollen, not tender. VAC in place, min fluid drainage Overall the pt continues to improve. Will examine tomorrow. Likely DC home tomorrow.
[2017-05-28] MEDS: ACETAMINOPHEN 325 MG TABLET (FP) PO PRN (20:41)
[2017-05-28] MEDS: DESMOPRESSIN ACETATE 0.2 MG TABLET PO SCH (21:50)
[2017-05-28] MEDS: rOPINIRole HCL 3 MG TABLET PO SCH (21:50)
[2017-05-28] MEDS: ROSUVASTATIN CA 10 MG TABLET (FP) PO SCH (21:51)
[2017-05-29 07:57] LABS: MCH 29.1 pg (25.7-33.7); MCHC 33.5 g/dl (32.0-36.0); MEAN CELL VOLUME 86.8 fl (80-96); MEAN PLT VOLUME 7.3 fl (7.5-11.1); PLATELET COUNT 217 K/MM3 (134-434); RDW 15.6 % (11.6-15.6); WHITE BLOOD COUNT 5.7 K/mm3 (4.0-10.0)
[2017-05-29] MEDS ORDERED: PT OWN MED DRAWER 7, Y5N ONE ×2 (09:49→10:10)
[2017-05-29] MEDS: oxyCODONE HCL 5 MG TABLET PO PRN (09:56)
[2017-05-29] MEDS: FUROSEMIDE 20 MG TABLET (FP) PO SCH (09:57)
[2017-05-29] MEDS: ENOXAPARIN NA (PORCINE) 40 MG/0.4 ML DISP.SYRIN SQ SCH (09:57)
[2017-05-29] MEDS: LOSARTAN POTASSIUM 50 MG TABLET (FP) PO SCH (09:57)
[2017-05-29] MEDS: TOPIRAMATE 100 MG TABLET PO SCH (09:58)
[2017-05-29] MEDS: rOPINIRole HCL 1 MG TABLET (FP) PO SCH (09:58)
[2017-05-29 10:14] LABS: INR 2.11 (0.82-1.09); PROTHROMBIN TIME (PATIENT) 23.6 SEC (9.98-11.88)
[2017-05-29 11:01] VITALS: BP 100/58
[2017-05-29] MEDS: [UNRECOGNIZED DRUG - OTHER] PO SCH (11:53)
[2017-05-29] MEDS: MELOXICAM 15 MG PO SCH (11:53)
--- NOTE | 2017-05-29 14:38 | PN ---
Progress Note (short form) - Note Progress Note: AVSS COMFORTABLE VAC IN PLACE AND DRAINING MINIMALLY REDNESS MARKEDLY IMPROVED IS AROM IMP: DOING WELL PLAN: DC TO HOME WITH ANALGESICS, COUMADIN( WHAT SHE WAS TAKING BEFORE ADMISSION ), VAC AND VNS. F/U IN MY OFFFICE X 2 WEEKS
[2017-05-29 14:42] VITALS: PULSE 74; TEMP 98.2
[2017-05-29 15:05] LABS: MCHC 32.2 g/dl (32.0-36.0); PLATELET COUNT 258 K/MM3 (134-434); RDW 15.8 % (11.6-15.6)
--- NOTE | 2017-05-29 16:10 | PN ---
Teaching Attending Note Name of Resident: Vikram Chapman ATTENDING PHYSICIAN STATEMENT I saw and evaluated the patient. I reviewed the resident's note and discussed the case with the resident. I agree with the resident's findings and plan as documented. SUBJECTIVE:states she feels fine and wants to go home. denies CP, SOB, fever, chills, N/V/C/D, increased swelling of R knee. denies BRBPR or melena or hematuria OBJECTIVE: Last Vital Signs Temp Pulse Resp BP Pulse Ox 98.2 F 74 20 100/58 96 05/29/17 14:00 05/29/17 14:00 05/29/17 10:00 05/29/17 10:00 05/28/17 21:00 General NAD CV S1 S2 RRR no murmur/rub/gallop Lungs CTA B/L no wheezing/rales/rhonchi Extremities R knee swelling with surrounding erythema with wound vac in place. tender on mild palpation ASSESSMENT AND PLAN: 71 yo F with PMH DVTs, hyperlipidemia, CHF, bilateral total knee replacements, RLS, neurogenic bladder, migraine headaches and cervical herniated disc 1. Right knee wound with hematoma- s/p irrigation and debridement 05/[address] in place. further management per ortho. PT and pain management 2. History of DVTs- on lovenox/coumadin bridge. only on lovenox 40mg daily ( prophylacitc dose) unclear why. will need to call pharmacy to verify highest dose of lovenox as pt is 125kg. INR therapeutic will only need bridge for 1 more day. states she takes coumadin 5mg and 7.5mg alternating doses. will give 7.5mg tonight 3. Acute anemia- concern for bleeding into joint. reports swelling is better and not worse. repeat Hgb in afternoon. call placed out to ortho to notify of concern. 4. Chronic heart failure- Continue Cozaar, Lasix 5. Restless leg syndrome- Continue Requip 6. Neurogenic bladder- Continue Toviaz 7. Migraine headaches- Continue Topamax 8. Hyperlipidemia- Continue Crestor
[2017-05-29] MEDS: WARFARIN NA 5 MG TABLET (UD) PO SCH (17:23)
--- NOTE | 2017-05-29 22:40 | PN ---
Physical Exam: SUBJECTIVE: Patient seen and examined at bed side. She is doing very well. NO acute events over night. She denies any Fever, chills, N/V/D/C. Her knee is still on VAc drainage. She is asking to leave home today. OBJECTIVE: Vital Signs Period Temp Pulse Resp BP Sys/Dennis Pulse Ox Last 24 Hr 97.8 F-98.2 F 72-87 20-20 100-119/55-69 HEART: S1S2, RRR LUNGS: Clear ABDOMEN: Obese, soft, non-tender, non-distended, normal BS EXTREMITIES: No edema. No calf tenderness, VAC dressing on right knee Laboratory Results - last 24 hr 05/29/17 05/29/17 05/29/17 06:00 06:00 08:55 WBC 5.7 RBC 3.58 L Hgb 10.4 L Hct 31.1 L MCV 86.8 MCH 29.1 MCHC 33.5 RDW 15.6 Plt Count 217 MPV 7.3 L INR 2.11 H PTT (Actin FS) 30.1 05/29/17 15:00 WBC 7.0 RBC 3.80 Hgb 10.6 L Hct 33.1 MCV 87.0 MCH 28.0 MCHC 32.2 RDW 15.8 H Plt Count 258 MPV 7.0 L INR PTT (Actin FS) ASSESSMENT/PLAN: This is a 71 year old woman with a history of DVTs, hyperlipidemia, CHF, bilateral total knee replacements, RLS, neurogenic bladder, migraine headaches and cervical herniated disc 1. Right knee wound with hematoma - s/p irrigation and debridement 05/23 - VAC in place -Surgery was on the board and the plan is to DC TO HOME WITH ANALGESICS, COUMADIN( WHAT SHE WAS TAKING BEFORE ADMISSION), VAC AND VNS. F/U with DR barnhart X 2 WEEKS 2. History of DVTs - Continue Coumadin 3. Chronic heart failure - Continue Cozaar, Lasix 4. Restless leg syndrome - Continue Requip 5. Neurogenic bladder - Continue Toviaz 6. Migraine headaches - Continue Topamax 7. Hyperlipidemia - Continue Crestor 8. Disposition - will be discharged on Coumadin Vikram Chapman MD PGY 1 . Visit type - Emergency Visit Emergency Visit: Yes ED Registration Date: 05/24/17 Care time: The patient presented to the Emergency Department on the above date and was hospitalized for further evaluation of their emergent condition. - New Patient This patient is new to me today: No - Critical Care Critical Care patient: No - Discharge Referral Referred to [facility] Med P.C.: No
== END 2017-05-29 18:42 | disposition home health service (06) | DRG 580 ==
LOC: JASUSAT 08:58 → JASU-SURG 08:58 → J6S 13:45 → JASUSAT 05-24 13:06 → J6S 05-24 13:06
PROVIDERS: ADMIT Orthopaedic Surgery; ATTEND Orthopaedic Surgery
PROC: 2W1QX6Z Compression of Right Lower Leg using Pressure Dressing (ICD-10-PCS; 2017-05-23)
PROC: 0JDN0ZZ Extraction of Right Lower Leg Subcutaneous Tissue and Fascia, Open Approach (ICD-10-PCS; principal; 2017-05-23 10:15)
DX: S81.001A Unspecified open wound, right knee, initial encounter (principal); Z68.42 Body mass index [BMI] 45.0-49.9, adult; W01.0XXA Fall on same level from slipping, tripping and stumbling without subsequent striking against object, initial encounter; Z91.81 History of falling; Y93.89 Activity, other specified; Y92.038 Other place in apartment as the place of occurrence of the external cause; Y99.8 Other external cause status; E66.9 Obesity, unspecified; Z86.718 Personal history of other venous thrombosis and embolism; Z79.01 Long term (current) use of anticoagulants; I50.9 Heart failure, unspecified; N31.9 Neuromuscular dysfunction of bladder, unspecified; G25.81 Restless legs syndrome; E78.00 Pure hypercholesterolemia, unspecified; G43.909 Migraine, unspecified, not intractable, without status migrainosus; J44.9 Chronic obstructive pulmonary disease, unspecified; Z96.653 Presence of artificial knee joint, bilateral
CPT/HCPCS: 36415; 80053; 85027; 85610; 85730; 86140; 93970-TC; 94760; 97116-GP; 97161-GP; J1644

== ENCOUNTER 2017-12-22 11:18 | Inpatient (IN) | payer MEDICARE, OTHER ==
[2017-12-22] MEDS ORDERED: SODIUM CHLORIDE 0.9% 1000 ML INFUS.BAG IV STA (11:21)
--- NOTE | 2017-12-22 11:21 | PDOC ---
History of Present Illness - General Stated Complaint: POSSIBLE UTI Time Seen by Provider: 12/22/17 11:20 - History of Present Illness Initial Comments: 12/22/17 11:26 72 yo F with h/o HTN, NIDDM, HLD, CHF, DVT's (on Coumadin), Morbid obesity, and neurogenic bladder BIBA w/ AMS. EMS reports pt. with BS~116, hyptoensive SBP~90s , and responsive, but somonolent. When they arrived pt. was laying on floor mat in urine, and feces.Per pt. at bedside she woke up this morning lethargic and confused. When he asked her questions, she responded with garbled speech and sounds. Patient was complaining of chills and with cold intolerance and rigors this AM. Pt. with urine incontinence and fecal incontinence at baseline. Denies hematuria, dysuria, or flank pain. report visit to urgent care yesterday evening and pt. sent out with Cefixime, but did not fill rx.She follows with Dr. Zelaya [facility], and was scheduled to see him oupt. but were unable to. see him in office. Denies CP, SOB, cough, abdominal pain, diarrhea, constipation, lightheadedness, weakness, sensory changes.Denies h/o CVA/TIA. Past History - Past Medical History Allergies/Adverse Reactions: Allergies Allergy/AdvReac Type Severity Reaction Status Date / Time ciprofloxacin [From Cipro] Allergy "RASH ON Verified 12/22/17 12:07 LEGS ciprofloxacin HCl Allergy "RASH ON Verified 12/22/17 12:07 [From Cipro] LEGS montelukast sodium Allergy "HALLUCINAT Verified 12/22/17 12:07 [From Singulair] IONS" rofecoxib [From Vioxx] Allergy "DIDN'T Verified 12/22/17 12:07 FEEL RIGHT" Sulfa (Sulfonamide Allergy "RASH ON Verified 12/22/17 12:07 Antibiotics) LEGS" Home Medications: Ambulatory Orders Desmopressin Acetate [Ddavp -] 0.4 mg PO HS 12/22/17 Fluticasone Prop 0.05% Nasal [Flonase -] 1 spray NS HS 12/22/17 Fluticasone Propionate [Flovent Diskus] 250 mcg IH DAILY 12/22/17 Folic Acid - 3 mg PO DAILY 12/22/17 Furosemide [Lasix] 20 mg PO DAILY 12/22/17 Ipratropium/Albuterol Sulfate [Combivent Respimat Inhal Vermilion] 4 gm IH DAILY Meloxicam 15 mg PO DAILY 12/22/17 Multivit-Min/FA/Lycopen/Lutein [Adults 50+ Multivitamin Tablet] 1 each PO DAILY 12/22/17 Ropinirole HCl 2 mg PO HS 12/22/17 Rosuvastatin [Crestor -] 10 mg PO DAILY 12/22/17 Topiramate 75 mg PO BID 12/22/17 Warfarin Sodium 5 mg PO DAILY 12/22/17 Anemia: No Asthma: Yes (NO RECENT ATTACK) Cancer: No Cardiac Disorders: No CVA: No COPD: No CHF: Yes Dementia: No Diabetes: No GI Disorders: No Disorders: No HTN: No Hypercholesterolemia: Yes Liver Disease: No Seizures: No Thyroid Disease: No - Surgical History Cholecystectomy: Yes Orthopedic Surgery: Yes (BILATERAL KNEE REPLACEMENT) - Suicide/Smoking/Psychosocial Hx Smoking History: Never smoked Have you smoked in the past 12 months: No Hx Alcohol Use: No Drug/Substance Use Hx: No Substance Use Type: None Hx Substance Use Treatment: No Review of Systems - Review of Systems Comments:: 12/22/17 11:55 GENERAL/CONSTITUTIONAL: + Weakness, and AMS. No fever or chills. HEAD, EYES, EARS, NOSE AND THROAT: No change in vision. No ear pain or discharge. No sore throat. CARDIOVASCULAR: No chest pain or shortness of breath RESPIRATORY: No cough, wheezing, or hemoptysis. GASTROINTESTINAL: No nausea, vomiting, diarrhea or constipation. GENITOURINARY: No dysuria, frequency, or change in urination. MUSCULOSKELETAL: No joint or muscle swelling or pain. No neck or back pain. SKIN: No rash NEUROLOGIC: No headache, vertigo, loss of consciousness, or change in strength/ sensation. ENDOCRINE: No increased thirst. No abnormal weight change HEMATOLOGIC/LYMPHATIC: No anemia, easy bleeding, or history of blood clots. ALLERGIC/IMMUNOLOGIC: No hives or skin allergy. *Physical Exam - Physical Exam Comments: 12/22/17 11:56 GENERAL: Awake, alert, oriented x 3. Lethargic appearing. HEAD: No signs of trauma, normocephalic, atraumatic EYES: PERRLA, EOMI, sclera anicteric, conjunctiva clear ENT: Hearing grossly normal, nares patent, oropharynx clear without exudates. Moist mucosa NECK: Normal ROM, supple, no lymphadenopathy, JVD, or masses LUNGS: Diminished at BL LL alberts. Absent rhonci and rales. HEART: Regular rate and rhythm, normal S1 and S2, no murmurs, rubs or gallops, peripheral pulses normal and equal bilaterally. ABDOMEN: Soft, nontender, normoactive bowel sounds. No guarding, no rebound. No masses EXTREMITIES : Normal inspection, Normal range of motion, no edema. No clubbing or cyanosis. NEUROLOGICAL: Cranial nerves II through XII grossly intact. Normal speech, normal gait, no focal sensorimotor deficits SKIN: Soiled with urine and feces. Warm, clammy, increased turgor, no rashes or lesions noted Procedures - Central Line Central Line Lumen: triple Central Line Position: internal jugular (R) Anesthesia: 1% Lidocaine Complications: none Post Central Line Insertion: sutured, good blood return, position confirmed w/ CXR ED Treatment Course - LABORATORY CBC & Chemistry Diagram: 12/22/17 11:51 12/22/17 11:51 Medical Decision Making - Medical Decision Making 12/22/17 11:55 72 yo F with h/o HTN, NIDDM, HLD, CHF, DVT's (on Coumadin), Morbid obesity, and neurogenic bladder BIBA w/ 2/4 SIRS HR~108, AMS, nml BS~116, hyptoensive SBP~ 90s, and responsive, but somnolent. Pt. soiled in urine and feces on arrival.Per pt. at bedside she woke up this morning lethargic and confused w/ garbled speech and sounds. Endorsed chills and with cold intolerance and rigors this AM. Recent urgent care visit (12/21/17) yesterday evening and pt. sent out with Cefixime, but did not fill rx.She follows with Dr. Zelaya U[facility]. Denies CP, SOB, cough, hematuria, dysuria, or flank pain, abdominal pain, diarrhea, constipation, lightheadedness, weakness, sensory changes. Physical exam notable for BP 71/37. Urinary source of infection suspected. R/o CVA/TIA with AMS. Will also assess for secondary source of infection PNA, C. diff. Will assess for underlying electrolyte abnormalities, and metabolic acid-base disturbance. ED Course: CT HEAD, Sepsis order set. Stool culture, c-diff ag CXR UA Tylenol, Vanc, Zosyn, 2 L NS 12/22/17 12:56 EKG: Sinus tachycardia with LAD. RBBB. STD lead V3. Absent ALEJANDRO. 12/22/17 13:22 WBC: 13.9 12/22/17 13:22 K+ 2.7 12/22/17 13:22 BUN/Cr: 26/1.5 Lactic Acid: 2.7 12/22/17 13:23 CXR :No acute pathology. 12/22/17 13:25 UA: 2+ Leuk esterase, 953 WBC, 20 RBC, 1+ Blood 12/22/17 14:58 Trop: 1.19 12/22/17 18:55 pt. admitted to ICU Dr. Crespo. Dr. Kahn to see pt. Cardiology. Dr. Gonzalez Pul. *DC/Admit/Observation/Transfer Diagnosis at time of Disposition: Septic shock, GABRIELE (acute kidney injury), UTI (urinary tract infection), Diarrhea, Lactic acidosis, Hypokalemia - Discharge Dispostion Condition at time of disposition: Critical - Referrals - Patient Instructions - Post Discharge Activity
[2017-12-22] MEDS ORDERED: ACETAMINOPHEN 1000 MG/100 ML VIAL (NON FORMULARY) IVPB ONE (11:37)
[2017-12-22] MEDS ORDERED: PIPERACILLIN/TAZOB 4.5 GM/100 ML PREMIX BAG IVPB ONE (11:41)
[2017-12-22] MEDS ORDERED: VANCOMYCIN 1,000 MG in DEXTROSE 5%-WATER - 250 ML IVPB ONE (11:41)
--- NOTE | 2017-12-22 11:45 | PDOC ---
Attending Attestation - [facility] HPI: 12/22/17 11:55 The patient is a 72-year-old female, accompanied by , with a significant past medical history of DVTs, CHF, bilateral total knee replacements, RLS, neurogenic bladder, migraine headaches and cervical herniated disc, who presents to the ED via EMS s/p altered mental status this morning. As per , the patient woke up this morning and was garbling her words when he tried to speak to her; it appeared as if the patient did not know who he was. The patient complained of chills and was experiencing rigors. The patient was seen at urgent care yesterday and was diagnosed with a UTI; patient was discharged with a prescription for suprax, which the patient has not yet picked up. The patient is incontinent of urine and stool. The patient is unable to provide history due to AMS. Allergies: ciprofloxacin, ciprofloxacin HCl, montelukast sodium, rofecoxib, and sulfa. PCP: Dr. Shad Joyce Urologist: Dr. Loyd Zelaya Supervisor [employer]: Dr. Oleg Cortes Vp Business Development: Dr. Jo - Physicial Exam PE: 12/22/17 12:04 GENERAL: (+)Foul-smelling, very hot to touch. Awake, alert, and fully oriented, in no acute distress HEAD: No signs of trauma EYES: PERRLA, EOMI, sclera anicteric, conjunctiva clear ENT: Auricles normal inspection, hearing grossly normal, nares patent, oropharynx clear without exudates. Moist mucosa NECK: Normal ROM, supple, no lymphadenopathy, JVD, or masses LUNGS: (+)Lungs sound diminished, poor inspiratory breathing. No wheezes, and no crackles HEART: (+)Tachy, irregular. Normal S1 and S2, no murmurs, rubs or gallops ABDOMEN: Soft, nontender, normoactive bowel sounds. No guarding, no rebound. No masses GENITOURINARY: (+)The patient is incontinent of urine and stool. EXTREMITIES: Normal range of motion, no edema. No clubbing or cyanosis. No cords, erythema, or tenderness NEUROLOGICAL: Cranial nerves II through XII grossly intact. Normal speech, normal gait SKIN:(+)Hot to touch. Dry, normal turgor, no rashes or lesions noted - Medical Decision Making 12/22/17 12:51 Dr. Gonzalez was paged and notified via phone service. 12/22/17 13:50 Chest X-Ray was reviewed by Dr. Lorenzo and over-read by Radiology. Impression: No acute pathology. No change of an adverse nature since 08/03/2016. 12/22/17 15:18 Dr. Martinez was paged and notified via phone service. 12/22/17 15:00 Dr. Oleg Cortes's (Supervisor [employer] at [facility]) service was called ; cell number to covering physician Dr. Smalls was given. Dr. Smalls's cell was called and he informed us that Dr. Cortes is no longer affiliated with the hospital, recommends to put a call out to Dr. Marsh who covers their patients who come to [facility]. 12/22/17 15:49 Dr. Marsh was paged and notified via phone service. <Chiqui Veronica - Last Filed: 12/22/17 15:49> - Resident Resident Name: Lawson Lawson - ED Attending Attestation I have performed the following: I have examined & evaluated the patient, The case was reviewed & discussed with the resident, I agree w/resident's findings & plan, Exceptions are as noted - Critical Care Time Total Critical Care Time: 60 Critical Care Statement: The care of this patient involved high complexity decision making to prevent further life threatening deterioration of the patient 's condition and/or to evaluate & treat vital organ system(s) failure or risk of failure. - Medical Decision Making 12/22/17 11:43 I, Dr. Jennifer Lorenzo, DO, attest that this document has been prepared under my direction and personally reviewed by me in its entirety. I further attest, that it accurately reflects all work, treatment, procedures and medical decision -making performed by me. 12/22/17 11:43 a/p: 72yo female bib ambulance for eval of altered MS -pt arrrives tachy/hypotensive -pt unable to provide any hx -pt with rigors -seen at urgent care last night - started on abx for uti -incontinent of urine and stool this AM -pt is hot upon arrival - appears septic -will start sepsis workup -will need admission -will start broad spectrum abx -will place mcfarlane catheter -will monitor and reassess 12/22/17 11:49 call placed to [facility] - Rx was for suprax 400mg - filled today. Given abx at urgent care last night per the , but none since 12/22/17 12:59 elevated lactate low potassium fluids running still hypotensive iv abx running will place central line - this was discussed with the patient and the at the bedside who agree with central line placement will start pressors case discussed with DR. Gonzalez who agrees with ICU placement 12/22/17 13:[address] Crespo - accepts pt to service Dr. Shad Joyce admits to SYMPHONY 12/22/17 15:22 elevated trop - call placed to Dr. Cortes 12/22/17 15:[address] Eisenberg - eris Cortes - recommends consult to DR. Marsh 12/22/17 16:[address] Marsh who will see the patient in consult - agrees with the plan. will see the patient in consult. <Jennifer Lorenzo - Last Filed: 12/22/17 16:00> Discharge Disposition <Chiqui Veronica - Last Filed: 12/22/17 15:49> - Discharge Dispostion Last Admission D/C Date: 05/29/17 Admit: Yes <Jennifer Lorenzo - Last Filed: 12/22/17 16:00> - Diagnosis Septic shock, GABRIELE (acute kidney injury), UTI (urinary tract infection), Diarrhea, Lactic acidosis, Hypokalemia - Discharge Dispostion Condition at time of disposition: Critical Heart Score/ECG Review - ECG Intrepretation Comment:: 12/22/17 12:26 sinus tach at 101, L axis, RBBB, no acute st/t wave findings <Jennifer Lorenzo - Last Filed: 12/22/17 16:00> Attestations - Attestations 12/22/17 12:07 Documentation prepared by Chiqui Veronica, acting as medical and health services manager for Jennifer Lorenzo DO. <Chiqui Veronica - Last Filed: 12/22/17 15:49>
[2017-12-22] MEDS ORDERED: PIPERACILLIN/TAZOB 4.5 GM 4.5 GM in DEXTROSE 5%-WATER - 100 ML IVPB ONE (12:15)
[2017-12-22 12:16] LABS: BASO % 0.1 % (0-2.0); HEMATOCRIT 38.3 % (32.4-45.2); HEMOGLOBIN 12.6 GM/dL (10.7-15.3); LYMPH % 5.9 % (8-40); MCH 29.2 pg (25.7-33.7); MCHC 32.9 g/dl (32.0-36.0); MEAN CELL VOLUME 88.7 fl (80-96); MEAN PLT VOLUME 7.7 fl (7.5-11.1); MONO % 1.7 % (3.8-10.2); NEUT % 92.3 % (42.8-82.8); PLATELET COUNT 158 K/MM3 (134-434); RBC 4.32 M/mm3 (3.60-5.2); RDW 17.2 % (11.6-15.6); WHITE BLOOD COUNT 13.9 K/mm3 (4.0-10.0)
[2017-12-22] MEDS ORDERED: SODIUM CHLORIDE 0.9% 1000 ML INFUS.BAG IV ONE ×3 (12:21→14:19)
[2017-12-22 12:27] LABS: VENOUS PH 7.41 (7.32-7.42); VENOUS PO2 48.7 mmHg (28-48)
[2017-12-22 12:40] LABS: ALBUMIN 2.8 g/dl (3.4-5.0); ANION GAP 6 (8-16); BILIRUBIN,TOTAL 0.8 mg/dL (0.2-1.0); BLOOD UREA NITROGEN 26 mg/dL (7-18); CALCIUM 7.8 mg/dL (8.5-10.1); CHLORIDE 115 mmol/L (98-107); CO2 20 mmol/L (21-32); CREATININE 1.5 mg/dL (0.55-1.02); GLUCOSE,RANDOM 127 mg/dL (74-106); SGOT/AST 34 U/L (15-37); SGPT/ALT 31 U/L (12-78); SODIUM 141 mmol/L (136-145); TOT PROT 5.7 g/dl (6.4-8.2)
[2017-12-22 12:41] LABS: INR 2.26 (0.82-1.09); PROTHROMBIN TIME (PATIENT) 25.5 SEC (9.98-11.88)
[2017-12-22 12:42] LABS: ALK PHOS 61 U/L (45-117)
[2017-12-22] MEDS ORDERED: ACETAMINOPHEN INJECTION 100 ML IVPB ONE (12:49)
[2017-12-22 12:50] LABS: POTASSIUM 2.7 mmol/L (3.5-5.1)
[2017-12-22 12:57] LABS: URINE APPEARANCE TURBID; URINE BILIRUBIN NEGATIVE (<2.0 mg/dL); URINE BLOOD 1+ (NEGATIVE); URINE COLOR YELLOW; URINE GLUCOSE (UA) NEGATIVE (NEGATIVE); URINE KETONE NEGATIVE (NEGATIVE); URINE NITRITE NEGATIVE (NEGATIVE); URINE UROBILINOGEN NEGATIVE mg/dL (0.2-1.0)
[2017-12-22 13:00] LABS: URINE LEUK ESTERASE 2+ (NEGATIVE); URINE PROTEIN 2+ (NEGATIVE)
[2017-12-22 13:02] LABS: EPI CELLS RARE /HPF (FEW); URINE BACTERIA MANY /hpf (NONE SEEN); URINE MUCUS RARE
[2017-12-22] MEDS ORDERED: VANCOMYCIN 1 GRAM (PRE-DOCKED) 1,000 MG/250 ML BAG IVPB ONE (13:36)
[2017-12-22] MEDS ORDERED: KCL 10 MEQ IVPB 30 MEQ/300 ML INFUS.BAG IVPB ONE (13:37)
[2017-12-22] MEDS: KCL 10 MEQ IVPB 10 MEQ/100 ML INFUS.BAG IVPB SCH ×3 (13:45→15:51)
[2017-12-22] MEDS ORDERED: NOREPINEPHRINE BITARTRATE 4 MG/4 ML ML IV ONE (13:59)
[2017-12-22] MEDS: NOREPINEPHRINE BITARTRATE 8,000 MCG in DEXTROSE 5%-WATER - 492 ML IV SCH (14:18)
--- NOTE | 2017-12-22 14:28 | HP ---
CHIEF COMPLAINT: Severe sepsis PCP: Dr. 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 Per pt, reports urinary retention for past few days, however denies dysuria, hematuria, pyuria, flank pain. Pt normally with urinary incontinence at baseline secondary to neurogenic bladder. Pt with fever/chills/fatigue yesterday, seen at urgent care and diagnosed with presumptive UTI. Prescribed Cefixime, however rx was not filled. Per , pt found in morning with AMS, garbled speech and rigors. Pt found by EMS laying on floor in urine and feces. Per pt, states that she felt chills/very somnolent in AM. No prior sick contacts, recent travel, recent infections. Denies VILLALTA, dizziness, CP, cough, SOB, focal neuro symptoms, rashes, constipation. Noted multiple episodes of diarrhea two days prior to admission which has persisted. Pt Urologist is Dr. Zelaya. Pt endorsed one episode of N/V in ED and complaining of epigastric pain as well. ER course was notable for: (1)Central line placed, levophed gtt started; received 2L in ED (2)BP 71/37, temp 103.8, pulse 108, WBC 14 - 4/4 sepsis critera (3)Received Vanc/zosyn (4)Admitted to ICU Recent Travel: None PAST MEDICAL HISTORY: HTN HLD NIDDM CHF multiple prior DVTs Morbid obesity Neurogenic bladder PAST SURGICAL HISTORY: GB removal BL Knee replacement Social History: Smoking: Never Alcohol: No Drugs: No Family History: [place] Allergies ciprofloxacin [From Cipro] Allergy (Verified 12/22/17 12:07) "RASH ON LEGS ciprofloxacin HCl [From Cipro] Allergy (Verified 12/22/17 12:07) "RASH ON LEGS montelukast sodium [From Singulair] Allergy (Verified 12/22/17 12:07) "HALLUCINATIONS" rofecoxib [From Vioxx] Allergy (Verified 12/22/17 12:07) "DIDN'T FEEL RIGHT" Sulfa (Sulfonamide Antibiotics) Allergy (Verified 12/22/17 12:07) "RASH ON LEGS" HOME MEDICATIONS: Home Medications Medication Instructions Recorded Beclomethasone Dipropionate [Qvar] 8.7 gm IH DAILY 05/22/17 Calcium Carbonate [Calcium] 1,000 mg PO BID 05/22/17 Cephalexin [Keflex] 500 mg PO TID 05/22/17 Cinnamon Bark [Cinnamon] 1,000 mg PO DAILY 05/22/17 Cyclosporine [Restasis] 1 each OU BID 05/22/17 Desmopressin Acetate 0.4 mg PO HS 05/22/17 Fesoterodine Fumarate [Toviaz] 8 mg PO HS 05/22/17 Fluticasone Prop 0.05% Nasal 2 spray NS HS 05/22/17 [Flonase -] Folic Acid - 3 mg PO DAILY 05/22/17 Furosemide [Lasix] 20 mg PO DAILY 05/22/17 Ipratropium/Albuterol Sulfate 4 gm IH DAILY 05/22/17 [Combivent Respimat Inhal [place]] Losartan Potassium 100 mg PO DAILY 05/22/17 Multivit-Min/FA/Lycopen/Lutein 1 each PO DAILY 05/22/17 [Centrum Silver Tablet] Oxycodone HCl/Acetaminophen 1 each PO PRN PRN 05/22/17 [Oxycodone-Acetaminophen 5-325] Ropinirole HCl 1 mg PO DAILY 05/22/17 Ropinirole HCl 3 mg PO HS 05/22/17 Rosuvastatin Calcium [Crestor] 10 mg PO HS 05/22/17 Topiramate 100 mg PO BID 05/22/17 Ubidecarenone [Co Q10] 200 mg PO HS 05/22/17 Warfarin Sodium [Coumadin] 5 mg PO DAILY 05/22/17 Acetaminophen [Tylenol .Regular 325 mg PO Q6H PRN #0 tablet 05/29/17 Strength -] Desmopressin Acetate [Desmopressin 0.4 mg PO HS tablet 05/29/17 Acetate -] Furosemide [Lasix -] 20 mg PO DAILY tablet 05/29/17 Losartan Potassium [Cozaar -] 100 mg PO DAILY tablet 05/29/17 Rosuvastatin [Crestor -] 10 mg PO HS tablet 05/29/17 Topiramate [Topamax -] 100 mg PO BID tablet 05/29/17 Warfarin Sodium [Coumadin] 5 mg PO DAILY 30 Days tablet 05/29/17 oxyCODONE HCL [Roxicodone -] 10 mg PO Q4H PRN #60 tablet MDD 6 05/29/17 REVIEW OF SYSTEMS CONSTITUTIONAL: generalized weakness, AMS, chills, Absent: fever, diaphoresis, malaise, loss of appetite, weight change HEENT: Absent: rhinorrhea, nasal congestion, throat pain, throat swelling, difficulty swallowing, mouth swelling, ear pain, eye pain, visual changes CARDIOVASCULAR: Absent: chest pain, syncope, palpitations, irregular heart rate, lightheadedness , peripheral edema RESPIRATORY: Absent: cough, shortness of breath, dyspnea with exertion, orthopnea, wheezing, stridor, hemoptysis GASTROINTESTINAL: Absent: abdominal pain, abdominal distension, nausea, vomiting, diarrhea, constipation, melena, hematochezia GENITOURINARY: Urinary/fecal Incontinence Absent: dysuria, frequency, urgency, hesitancy, hematuria, flank pain, genital pain MUSCULOSKELETAL: Absent: myalgia, arthralgia, joint swelling, back pain, neck pain SKIN: Absent: rash, itching, pallor HEMATOLOGIC/IMMUNOLOGIC: Absent: easy bleeding, easy bruising, lymphadenopathy, frequent infections ENDOCRINE: cold intolerance Absent: unexplained weight gain, unexplained weight loss, heat intolerance, NEUROLOGIC: Absent: headache, focal weakness or paresthesias, dizziness, unsteady gait, seizure, mental status changes, bladder or bowel incontinence PSYCHIATRIC: Absent: anxiety, depression, suicidal or homicidal ideation, hallucinations. PHYSICAL EXAMINATION Vital Signs - 24 hr 12/22/17 12/22/17 11:47 12:58 Temperature 103.8 F H Pulse Rate 108 H Pulse Rate [ 96 H Apical] Respiratory 20 30 H Rate Blood Pressure 71/37 Blood Pressure 73/33 [Left Arm] O2 Sat by Pulse 96 96 Oximetry (%) GENERAL: Obese elderly woman, anxious, laying in bed HEAD: Normal with no signs of trauma. EYES: Pupils equal, round and reactive to light, extraocular movements intact, sclera anicteric, conjunctiva clear. No lid lag. EARS, NOSE, THROAT: Ears normal, nares patent, oropharynx clear without exudates. Moist mucous membranes. NECK: R IJ central line noted with no erythema, edema or oozing. No JVD noted. LUNGS: Decreased air entry at bases. No wheezing or rhochi noted. Limited by body habitus. HEART: Distant heart sounds. Regular rate and rhythm, normal S1 and S2 without murmur, rub or gallop. ABDOMEN: Epigastric pain on palpation. Globular abdomen. Normoactive bowel sounds, no guarding, no rebound, no masses. TTP in LLQ, L flank. UPPER EXTREMITIES: 2+ pulses, warm, well-perfused. No cyanosis. No clubbing. No peripheral edema. LOWER EXTREMITIES: Bl statis dermatitis skin changes to lower shank. 1+ DP/PT pulses, warm, well-perfused. No calf tenderness. No peripheral edema. NEUROLOGICAL: Cranial nerves II-XII intact. Normal speech. 5/5 strength grossly in all extremities, preserved sensation diffusely. Facial symmetry. Gait not observed. PSYCHIATRIC: Cooperative. Good eye contact. Appropriate mood and affect. Laboratory Results - last 24 hr CBC, BMP 12/22/17 11:51 12/22/17 11:51 12/22/17 12/22/17 12/22/17 11:40 11:51 11:51 WBC 13.9 H D RBC 4.32 Hgb 12.6 Hct 38.3 MCV 88.7 MCH 29.2 MCHC 32.9 RDW 17.2 H Plt Count 158 D MPV 7.7 Neutrophils % 92.3 H D Lymphocytes % 5.9 L D Monocytes % 1.7 L Eosinophils % 0.0 D Basophils % 0.1 PT with INR 25.50 H INR 2.26 H D PTT (Actin FS) 30.0 D VBG pH 7.41 POC VBG pCO2 27.0 L POC VBG pO2 48.7 H Mixed VBG HCO3 16.9 L Sodium Potassium Chloride Carbon Dioxide Anion Gap BUN Creatinine Creat Clearance w eGFR Random Glucose Lactic Acid Calcium Total Bilirubin AST ALT Alkaline Phosphatase Creatine Kinase Creatine Kinase Index CK-MB (CK-2) Troponin I Total Protein Albumin Urine Color Urine Appearance Urine pH Ur Specific [place] Urine Protein Urine Glucose (UA) Urine Ketones Urine Blood Urine Nitrite Urine Bilirubin Urine Urobilinogen Ur Leukocyte Esterase Urine WBC (Auto) Urine RBC (Auto) Ur Epithelial Cells Urine Bacteria Urine Mucus 12/22/17 12/22/17 12/22/17 11:51 11:51 11:51 WBC RBC Hgb Hct MCV MCH MCHC RDW Plt Count MPV Neutrophils % Lymphocytes % Monocytes % Eosinophils % Basophils % PT with INR INR PTT (Actin FS) VBG pH POC VBG pCO2 POC VBG pO2 Mixed VBG HCO3 Sodium 141 Potassium 2.7 L* Chloride 115 H Carbon Dioxide 20 L Anion Gap 6 L BUN 26 H Creatinine 1.5 H Creat Clearance w eGFR 33.94 Random Glucose 127 H Lactic Acid 2.7 H* Calcium 7.8 L Total Bilirubin 0.8 D AST 34 ALT 31 Alkaline Phosphatase 61 Creatine Kinase 189 Creatine Kinase Index 0.5 CK-MB (CK-2) < 1.000 Troponin I Cancelled Total Protein 5.7 L Albumin 2.8 L Urine Color Urine Appearance Urine pH Ur Specific [place] Urine Protein Urine Glucose (UA) Urine Ketones Urine Blood Urine Nitrite Urine Bilirubin Urine Urobilinogen Ur Leukocyte Esterase Urine WBC (Auto) Urine RBC (Auto) Ur Epithelial Cells Urine Bacteria Urine Mucus 12/22/17 12/22/17 11:51 12:44 WBC RBC Hgb Hct MCV MCH MCHC RDW Plt Count MPV Neutrophils % Lymphocytes % Monocytes % Eosinophils % Basophils % PT with INR INR PTT (Actin FS) VBG pH POC VBG pCO2 POC VBG pO2 Mixed VBG HCO3 Sodium Potassium Chloride Carbon Dioxide Anion Gap BUN Creatinine Creat Clearance w eGFR Random Glucose Lactic Acid Calcium Total Bilirubin AST ALT Alkaline Phosphatase Creatine Kinase Creatine Kinase Index CK-MB (CK-2) Cancelled Troponin I Total Protein Albumin Urine Color Yellow Urine Appearance Turbid Urine pH 5.0 Ur Specific [place] 1.015 Urine Protein 2+ H Urine Glucose (UA) Negative Urine Ketones Negative Urine Blood 1+ H Urine Nitrite Negative Urine Bilirubin Negative Urine Urobilinogen Negative Ur Leukocyte Esterase 2+ H Urine WBC (Auto) 953 Urine RBC (Auto) 20 Ur Epithelial Cells Rare Urine Bacteria Many Urine Mucus Rare Blood, urine cultures sent CXR 12/22 - no pathology noted EKG: Sinus tachycardia with LAD. RBBB. STD lead V3. Absent ALEJANDRO. 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 On pressors and admitted to ICU for further management. #Severe Sepsis 2/2 UTI - +UA; 4/4 sepsis criteria met; on pressors; ICU admission; UA + leuk esterase, WBCs - f/u all cultures - levo gtt - vanc/zosyn - ID consulted - trend fever, WBC curve - IVFs - trend Lactate; 2.7 on admission - Queen - Strict Is and Os - Bolus additional 1L #GABRIELE - elevated Cr 1.5 - IVFs - Trend - Bladder/renal US - CT abdomen/pelvis - hold home lasix/NSAIDs - CT Ab/Pelvis to r/o kidney stone #Elevated Trops - 1.19; likely demand ischemia - Repeat in 6 hours - cards consulted - Serial EKGs #AMS - likely secondary to UTI, sepsis; improved on my exam - f/u CT head - trend MS #Hypokalemia - 2.7 on admission - Trend - Replete as needed - KCL IV 40meq w/ D51/2 NS - KCl Riders x2 #diarrhea - flagyl coverage - f/u stool cultures, c diff toxin/culture #neurogenic bladder - c/w ddavp #?migraines - topiramate #Restless leg syndrome - c/w ropirinole #Multiple prior DVTs - Hold coumadin for now - Trend INR #HTN - hold home HTN meds in setting of sepsis, hypotension #HLD - c/w home crestor #CHF - unknown etiology - hold home lasix in setting of hypotension - Cardiology consulted - Dr. Griffith - ECHO #PPX HSQ #FEN IVFs Daily lytes NPO given AMS Dispo - Admit to ICU Plan discussed with attending, Dr. Cherie Alexis, PGY1 Visit type - Emergency Visit Emergency Visit: Yes ED Registration Date: 12/22/17 Care time: The patient presented to the Emergency Department on the above date and was hospitalized for further evaluation of their emergent condition. - New Patient This patient is new to me today: Yes Date on this admission: 12/22/17 - Critical Care Critical Care patient: Yes Total Critical Care Time (in minutes): 35 Critical Care Statement: The care of this patient involved high complexity decision making to prevent further life threatening deterioration of the patient 's condition and/or to evaluate & treat vital organ system(s) failure or risk of failure. Hospitalist Screening - Colonoscopy Questionnaire Colonoscopy Questionnaire: Colonoscopy Questionnaire - Patient: 50 - 75 years old and never had a screening colonoscopy: Unknown History of colon or rectal polyps, or CA: Unknown History of IBD, Crohn's disease or UC: Unknown History of abdominal radiation therapy as a child: Unknown - Relative: 1 with colon or rectal CA, or polyps at age 60 or younger: Unknown Colon or rectal CA diagnosed at age 45 or younger: Unknown Multiple relatives with colon or rectal CA: Unknown - Outcome: Screening Result: Negative Screen
[2017-12-22] MEDS ORDERED: ASPIRIN 81 MG CHEWABLE TABLETS PO ONE (15:24)
[2017-12-22] MEDS ORDERED: ASPIRIN 81 MG CHEWABLE TABLETS ONE (15:30)
--- NOTE | 2017-12-22 16:19 | PN ---
Teaching Attending Note Name of Resident: Ryan Alexis ATTENDING PHYSICIAN STATEMENT I saw and evaluated the patient. I reviewed the resident's note and discussed the case with the resident. I agree with the resident's findings and plan as documented with exceptions mentioned below. SUBJECTIVE: 72 yof with PMHx of DVT's(on coumadin), Bilateral total knee replacements, CHF ( ?), neurogenic bladder, comes with urinary symptoms, decreased PO intake and reports some watery diarrhea a day ago that is recurrent today, associated with vomiting x 1 today in the ED. Reports pain all over, currently mentating well but uncomfortable and not fully answering questions. at bedside. assisting in interview. OBJECTIVE: Vital Signs Period Temp Pulse Resp BP Sys/Dennis Pulse Ox Last 24 Hr 100.8 F-103.8 F 84-108 20-30 59-88/33-56 96-98 Intake & Output 12/19/17 12/20/17 12/21/17 12/22/17 23:59 23:59 23:59 23:59 Intake Total 3400 Output Total 150 Balance 3250 Weight 300 lb GENERAL: Awake, alert, oriented, no acute distress, mentating well HEAD: Normal with no signs of trauma. EYES: Pupils equal, round and reactive to light, extraocular movements intact, sclera anicteric, conjunctiva clear. No lid lag. EARS, NOSE, THROAT: Ears normal, nares patent, oropharynx clear without exudates. Dry mucous membrane NECK: soft, supple LUNGS:limited exam, not full effort, also limited by body habitus, no rales or wheezing appreciated. HEART: Regular rate and rhythm, ABDOMEN: Soft, obese, tenderness in LLQ in the lateral region towards the flank , no voluntary or involuntary guarding or rigidity, no CVA tenderness, extremities: chronic skin hyperpigmentation LE, pos Pulses, no edema NEUROLOGICAL: AAox3, facial symmetry, moves all extremities freely PSYCHIATRIC: uncomfortable, but appropriate SKIN: decreased skin turgor Home Medication List Medication Instructions Recorded Confirmed Type Desmopressin Acetate [Ddavp -] 0.4 mg PO HS 12/22/17 12/22/17 History Fluticasone Prop 0.05% Nasal 1 spray NS HS 12/22/17 12/22/17 History [Flonase -] Fluticasone Propionate [Flovent 250 mcg IH DAILY 12/22/17 12/22/17 History Diskus] Folic Acid - 3 mg PO DAILY 12/22/17 12/22/17 History Furosemide [Lasix] 20 mg PO DAILY 12/22/17 12/22/17 History Ipratropium/Albuterol Sulfate 4 gm IH DAILY 12/22/17 12/22/17 History [Combivent Respimat Inhal [place]] Meloxicam 15 mg PO DAILY 12/22/17 12/22/17 History Multivit-Min/FA/Lycopen/Lutein 1 each PO DAILY 12/22/17 12/22/17 History [Adults 50+ Multivitamin Tablet] Ropinirole HCl 2 mg PO HS 12/22/17 12/22/17 History Rosuvastatin [Crestor -] 10 mg PO DAILY 12/22/17 12/22/17 History Topiramate 75 mg PO BID 12/22/17 12/22/17 History Warfarin Sodium 5 mg PO DAILY 12/22/17 12/22/17 History Active Medications Generic Name Dose Route Start Last Admin Trade Name Faith PRN Reason Stop Dose Admin Chlorhexidine Gluconate 1 applic 12/22/17 22:00 Hibiclens For Decolonization - TP HS [facility] Heparin Sodium (Porcine) 5,000 unit 12/22/17 22:00 Heparin - SQ TID [facility] Norepinephrine Bitartrate 8, 500 mls @ 18.75 mls/hr 12/22/17 13:00 12/22/17 14:18 000 mcg/ Dextrose IV 5 mcg/min TITR RAMBO 18.75 mls/hr Protocol Administration 5 MCG/MIN Dextrose/Sodium Chloride 40 meq in 1,000 mls @ 100 mls/hr 12/22/17 15:45 D5-1/2ns+40 Meq Kcl - IV ASDIR [facility] Mupirocin 1 applic 12/22/17 22:00 Bactroban Ointment (For Decolonization) - NS 12/27/17 21:59 BID [facility] Laboratory Results - last 24 hr 12/22/17 12/22/17 12/22/17 11:40 11:51 11:51 WBC 13.9 H D RBC 4.32 Hgb 12.6 Hct 38.3 MCV 88.7 MCH 29.2 MCHC 32.9 RDW 17.2 H Plt Count 158 D MPV 7.7 Neutrophils % 92.3 H D Lymphocytes % 5.9 L D Monocytes % 1.7 L Eosinophils % 0.0 D Basophils % 0.1 PT with INR 25.50 H INR 2.26 H D PTT (Actin FS) 30.0 D VBG pH 7.41 POC VBG pCO2 27.0 L POC VBG pO2 48.7 H Mixed VBG HCO3 16.9 L Sodium Potassium Chloride Carbon Dioxide Anion Gap BUN Creatinine Creat Clearance w eGFR Random Glucose Lactic Acid Calcium Total Bilirubin AST ALT Alkaline Phosphatase Creatine Kinase Creatine Kinase Index CK-MB (CK-2) Troponin I Total Protein Albumin Urine Color Urine Appearance Urine pH Ur Specific [place] Urine Protein Urine Glucose (UA) Urine Ketones Urine Blood Urine Nitrite Urine Bilirubin Urine Urobilinogen Ur Leukocyte Esterase Urine WBC (Auto) Urine RBC (Auto) Ur Epithelial Cells Urine Bacteria Urine Mucus 12/22/17 12/22/17 12/22/17 11:51 11:51 11:51 WBC RBC Hgb Hct MCV MCH MCHC RDW Plt Count MPV Neutrophils % Lymphocytes % Monocytes % Eosinophils % Basophils % PT with INR INR PTT (Actin FS) VBG pH POC VBG pCO2 POC VBG pO2 Mixed VBG HCO3 Sodium 141 Potassium 2.7 L* Chloride 115 H Carbon Dioxide 20 L Anion Gap 6 L BUN 26 H Creatinine 1.5 H Creat Clearance w eGFR 33.94 Random Glucose 127 H Lactic Acid 2.7 H* Calcium 7.8 L Total Bilirubin 0.8 D AST 34 ALT 31 Alkaline Phosphatase 61 Creatine Kinase 189 Creatine Kinase Index 0.5 CK-MB (CK-2) < 1.000 Troponin I Cancelled Total Protein 5.7 L Albumin 2.8 L Urine Color Urine Appearance Urine pH Ur Specific [place] Urine Protein Urine Glucose (UA) Urine Ketones Urine Blood Urine Nitrite Urine Bilirubin Urine Urobilinogen Ur Leukocyte Esterase Urine WBC (Auto) Urine RBC (Auto) Ur Epithelial Cells Urine Bacteria Urine Mucus 12/22/17 12/22/17 12/22/17 11:51 12:44 13:25 WBC RBC Hgb Hct MCV MCH MCHC RDW Plt Count MPV Neutrophils % Lymphocytes % Monocytes % Eosinophils % Basophils % PT with INR INR PTT (Actin FS) VBG pH POC VBG pCO2 POC VBG pO2 Mixed VBG HCO3 Sodium Potassium Chloride Carbon Dioxide Anion Gap BUN Creatinine Creat Clearance w eGFR Random Glucose Lactic Acid Calcium Total Bilirubin AST ALT Alkaline Phosphatase Creatine Kinase 248 H Creatine Kinase Index 0.4 CK-MB (CK-2) Cancelled 1.000 Troponin I 1.19 H* Total Protein Albumin Urine Color Yellow Urine Appearance Turbid Urine pH 5.0 Ur Specific [place] 1.015 Urine Protein 2+ H Urine Glucose (UA) Negative Urine Ketones Negative Urine Blood 1+ H Urine Nitrite Negative Urine Bilirubin Negative Urine Urobilinogen Negative Ur Leukocyte Esterase 2+ H Urine WBC (Auto) 953 Urine RBC (Auto) 20 Ur Epithelial Cells Rare Urine Bacteria Many Urine Mucus Rare 12/22/17 13:30 WBC RBC Hgb Hct MCV MCH MCHC RDW Plt Count MPV Neutrophils % Lymphocytes % Monocytes % Eosinophils % Basophils % PT with INR INR PTT (Actin FS) VBG pH POC VBG pCO2 POC VBG pO2 Mixed VBG HCO3 Sodium Potassium Chloride Carbon Dioxide Anion Gap BUN Creatinine Creat Clearance w eGFR Random Glucose Lactic Acid 2.7 H* Calcium Total Bilirubin AST ALT Alkaline Phosphatase Creatine Kinase Creatine Kinase Index CK-MB (CK-2) Troponin I Total Protein Albumin Urine Color Urine Appearance Urine pH Ur Specific [place] Urine Protein Urine Glucose (UA) Urine Ketones Urine Blood Urine Nitrite Urine Bilirubin Urine Urobilinogen Ur Leukocyte Esterase Urine WBC (Auto) Urine RBC (Auto) Ur Epithelial Cells Urine Bacteria Urine Mucus Microbiology 12/22/17 14:45 Nasopharyngeal Swab Influenza Types A,B Antigen (SUZETTE) - Final 12/22/17 14:45 Nasopharyngeal Swab - Final CXR - no acute process ASSESSMENT AND PLAN: 72 yof with PMhx of DVT on coumadin, neurogenic bladder with incontinence/ retention, admitted with septic shock secondary to UTI, diarrhea, and abdominal pain.; -Septic shock, likely secondary to complicated UTI, r/o stones/abdominal etiology -Diarrhea/nausea, ?etiology -H/o DVT on coumadin -GABRIELE likely hypovolumia/sepsis, r/o retention/obstructive process -Elevated Troponin, suspicious for demand type II NSTEMI from above, no concerning EKG changes or chest symptoms -Restless pain syndrome Plan: Zosyn, ID input, levophed. Blood/urine cultures, stool C difficile. Emperic flagyl. Aggressive IVF and pressors as above. CT A/P to r/o stone or obstructive process given tenderness. Queen placement. hold nephrotoxic medications. Hold lasix/NSAIDs, monitor renal function. hold coumadin x24 hours, resume based on clinical course. Cycle troponin, 2D echo, cardiology input, Monitor for new symptoms. COnfirm home meds, continue desmopressin, ropinirole, topiramate. DVTPPX as above, GIPPX on antibiotics Admit to ICU. Total critical care admit time spent 65 min.
--- NOTE | 2017-12-22 16:26 | CONSULT ---
Consult Consult Specialty:: PULMONARY/CCM Referred by:: Dr. Lorenzo Reason for Consultation:: septic shock - History of Present Illness Chief Complaint: altered mental status History of Present Illness: 72yo female with h/o HTN, DM, hyperlipidemia, h/o DVT on anticoagulation, CHF, asthma, morbid obesity who was admitted with altered mental status. Has been experiencing dysuria x 2 days, went to urgent care last night and was discharged with Rx for antibiotics which she did not get a chance to fill. Fevers at home with confusion. Nauseous and vomited once. No abdominal pain but reports back pain. No diarrhea. No history of UTIs, no recent antibiotics and no hospitalizations. UA strongly positive for UTI, started on IVF and antibiotics. RIJ central line placed and started on levophed gtt for refractory hypotension. - History Source History Provided By: Patient, Family Member, Medical Record Limitations to Obtaining History: Clinical Condition - Past Medical History Cardio/Vascular: Yes: CHF Pulmonary: Yes: Asthma Endocrine: Yes: Diabetes Mellitus - Alcohol/Substance Use Hx Alcohol Use: No - Smoking History Smoking history: Never smoked Have you smoked in the past 12 months: No Home Medications - Allergies Allergies/Adverse Reactions: Allergies Allergy/AdvReac Type Severity Reaction Status Date / Time ciprofloxacin [From Cipro] Allergy "RASH ON Verified 12/22/17 12:07 LEGS ciprofloxacin HCl Allergy "RASH ON Verified 12/22/17 12:07 [From Cipro] LEGS montelukast sodium Allergy "HALLUCINAT Verified 12/22/17 12:07 [From Singulair] IONS" rofecoxib [From Vioxx] Allergy "DIDN'T Verified 12/22/17 12:07 FEEL RIGHT" Sulfa (Sulfonamide Allergy "RASH ON Verified 12/22/17 12:07 Antibiotics) LEGS" - Home Medications Home Medications: Ambulatory Orders Desmopressin Acetate [Ddavp -] 0.4 mg PO HS 12/22/17 Fluticasone Prop 0.05% Nasal [Flonase -] 1 spray NS HS 12/22/17 Fluticasone Propionate [Flovent Diskus] 250 mcg IH DAILY 12/22/17 Folic Acid - 3 mg PO DAILY 12/22/17 Furosemide [Lasix] 20 mg PO DAILY 12/22/17 Ipratropium/Albuterol Sulfate [Combivent Respimat Inhal [place]] 4 gm IH DAILY Meloxicam 15 mg PO DAILY 12/22/17 Multivit-Min/FA/Lycopen/Lutein [Adults 50+ Multivitamin Tablet] 1 each PO DAILY 12/22/17 Ropinirole HCl 2 mg PO HS 12/22/17 Rosuvastatin [Crestor -] 10 mg PO DAILY 12/22/17 Topiramate 75 mg PO BID 12/22/17 Warfarin Sodium 5 mg PO DAILY 12/22/17 Review of Systems - Review of Systems Constitutional: reports: Chills, Fever, Lethargy, Malaise, Weakness Eyes: denies: Recent Change in Vision HENT: denies: Nasal Congestion, Throat Pain Neck: denies: Stiffness, Tenderness Cardiovascular: denies: Chest Pain, Edema, Palpitations, Shortness of Breath Respiratory: denies: Cough, Hemoptysis, SOB, Wheezing Gastrointestinal: reports: Nausea, Vomiting. denies: Abdominal Pain Genitourinary: reports: Dysuria Musculoskeletal: reports: Back Pain Neurological: reports: Headache. denies: Dizziness Endocrine: denies: Unexplained Weight Loss Physical Exam Vital Signs: Vital Signs Temperature 100.8 F H 12/22/17 15:37 Pulse Rate 84 12/22/17 15:38 Respiratory Rate 20 12/22/17 15:38 Blood Pressure 87/54 12/22/17 15:38 O2 Sat by Pulse Oximetry (%) 98 12/22/17 15:38 Constitutional: Yes: Moderate Distress Eyes: Yes: Conjunctiva Clear, EOM Intact HENT: Yes: Atraumatic, Normocephalic, Other (dry mucous membranes) Neck: Yes: Supple, Trachea Midline Cardiovascular: Yes: Regular Rate and Rhythm Respiratory: Yes: Diminished (decreased breath sounds at the bases) Gastrointestinal: Yes: Normal Bowel Sounds, Soft, Abdomen, Obese. No: Tenderness Edema: No Neurological: Yes: Alert, Oriented, Lethargy Labs: CBC, BMP 12/22/17 11:51 12/22/17 11:51 Imaging - Results Chest X-ray: Report Reviewed, Image Reviewed (no infiltrates) Problem List - Problems (1) UTI (urinary tract infection) Code(s): N39.0 - URINARY TRACT INFECTION, SITE NOT SPECIFIED (2) Septic shock Code(s): A41.9 - SEPSIS, UNSPECIFIED ORGANISM; R65.21 - SEVERE SEPSIS WITH SEPTIC SHOCK (3) GABRIELE (acute kidney injury) Code(s): N17.9 - ACUTE KIDNEY FAILURE, UNSPECIFIED (4) Hypokalemia Code(s): E87.6 - HYPOKALEMIA (5) Lactic acidosis Code(s): E87.2 - ACIDOSIS (6) CHF (congestive heart failure) Code(s): I50.9 - HEART FAILURE, UNSPECIFIED (7) HLD (hyperlipidemia) Code(s): E78.5 - HYPERLIPIDEMIA, UNSPECIFIED Qualifiers: Hyperlipidemia type: other hyperlipidemia Qualified Code(s): E78.4 - Other hyperlipidemia (8) History of DVT (deep vein thrombosis) Code(s): Z86.718 - PERSONAL HISTORY OF OTHER VENOUS THROMBOSIS AND EMBOLISM (9) Neurogenic dysfunction of the urinary bladder Code(s): N31.9 - NEUROMUSCULAR DYSFUNCTION OF BLADDER, UNSPECIFIED Assessment/Plan UTI Septic Shock Acute Kidney Injury Lactic Acidosis +Troponins likely Demand Ischemia Asthma DM Hyperlipidemia h/o DVT Morbid Obesity - IV antibiotics - f/u cultures - IVF resuscitatin - titrate levophed gtt to maintain MAP >65 - trend lactate, cardiac enzymes - echocardiogram - abdominal imaging to r/o pyelonephritis - continue anticoagulation - inhaled bronchodilators - ICU monitoring Thank you for this consult Oleg Gonzalez MD critical care time spent in reviewing chart, evaluating patient and formulating plan 35 min
[2017-12-22] MEDS ORDERED: KCL 10 MEQ IVPB 10 MEQ/100 ML INFUS.BAG IVPB SCH (16:30)
[2017-12-22] MEDS ORDERED: POTASSIUM CHLORIDE 10 MEQ in SODIUM CHLORIDE 100 ML IVPB SCH (16:45)
[2017-12-22 18:29] VITALS: BMI 47.4
[2017-12-22] MEDS: D5-1/2NS+40 MEQ KCL - 40 MEQ/1,000 ML INFUS.BAG IV SCH (18:57)
[2017-12-22] MEDS ORDERED: ALBUTEROL SO4 0.083% IH SOL 2.5 MG/3 ML VIAL.NEB. NEB ONE (21:12)
[2017-12-22] MEDS ORDERED: ALBUTEROL SO4 0.083% IH SOL 2.5 MG/3 ML VIAL.NEB. NEB PRN (21:12)
[2017-12-22] MEDS ORDERED: PT OWN MED DRAWER 7, Y5N ONE (21:30)
[2017-12-22 21:46] LABS: ANION GAP 8 (8-16); BLOOD UREA NITROGEN 25 mg/dL (7-18); CHLORIDE 117 mmol/L (98-107); CO2 20 mmol/L (21-32); CREATININE 1.5 mg/dL (0.55-1.02); GLUCOSE,RANDOM 136 mg/dL (74-106); POTASSIUM 3.2 mmol/L (3.5-5.1); SODIUM 145 mmol/L (136-145)
[2017-12-22] MEDS: TOPIRAMATE 25 MG TABLET (FP) PO SCH (22:06)
[2017-12-22] MEDS: CHLORHEXIDINE GLUCONATE 4% CLEANSER FOR DECOLONIZATION TP SCH (22:06)
[2017-12-22] MEDS: rOPINIRole HCL 1 MG TABLET (FP) PO SCH (22:06)
[2017-12-22] MEDS: MUPIROCIN 2% TOPICAL OINTMENT FOR DECOLONIZATION NS SCH (22:07)
[2017-12-23] MEDS: NOREPINEPHRINE BITARTRATE 8,000 MCG in DEXTROSE 5%-WATER - 492 ML IV SCH ×2 (05:00→15:44)
[2017-12-23] MEDS ORDERED: SODIUM CHLORIDE 500 ML IV STA (05:43)
[2017-12-23 06:05] LABS: BASO % 0.2 % (0-2.0); EOS % 0.5 % (0-4.5); HEMATOCRIT 30.9 % (32.4-45.2); HEMOGLOBIN 10.2 GM/dL (10.7-15.3); LYMPH % 9.5 % (8-40); MCH 29.5 pg (25.7-33.7); MEAN CELL VOLUME 89.6 fl (80-96); MEAN PLT VOLUME 8.2 fl (7.5-11.1); MONO % 5.7 % (3.8-10.2); NEUT % 84.1 % (42.8-82.8); PLATELET COUNT 136 K/MM3 (134-434); RBC 3.45 M/mm3 (3.60-5.2); RDW 17.9 % (11.6-15.6); WHITE BLOOD COUNT 16.5 K/mm3 (4.0-10.0)
[2017-12-23 06:22] LABS: INR 2.16 (0.82-1.09); PROTHROMBIN TIME (PATIENT) 24.4 SEC (9.98-11.88)
[2017-12-23 06:34] LABS: CHLORIDE 119 mmol/L (98-107); POTASSIUM 3.3 mmol/L (3.5-5.1); SODIUM 148 mmol/L (136-145)
[2017-12-23 06:47] LABS: ALBUMIN 2.3 g/dl (3.4-5.0); ALK PHOS 43 U/L (45-117); ANION GAP 11 (8-16); BILIRUBIN,TOTAL 0.2 mg/dL (0.2-1.0); BLOOD UREA NITROGEN 22 mg/dL (7-18); CALCIUM 7.1 mg/dL (8.5-10.1); CO2 18 mmol/L (21-32); CREATININE 1.1 mg/dL (0.55-1.02); GLUCOSE,RANDOM 100 mg/dL (74-106); MAGNESIUM 1.7 mg/dL (1.8-2.4); PHOSPHOROUS 2.1 mg/dL (2.5-4.9); SGOT/AST 22 U/L (15-37); SGPT/ALT 23 U/L (12-78); TOT PROT 4.7 g/dl (6.4-8.2)
[2017-12-23] MEDS: HEPARIN NA (PORCINE) 5,000 UNITS/ML 1ML VIAL SQ SCH ×2 (07:27→15:45)
--- NOTE | 2017-12-23 08:25 | PN ---
Progress Note (short form) - Note Progress Note: ID consult dictated imp/reccd 72 year old female pmh neurogenic bladder, HTN-recently noted urinary retention - went to [facility]enter on Sunday- given 2 pills to take- one Sunday night, one Sunday am- and a prescriptions took the pink pills, became confused at home and lethargic with garbled speech found covered with stools by EMS and hypotensive also noted to have nonbloody diarrhea- green now alert she is able to give history no recent UTIS called Dr Zelaya (her urologist) but didnot hear back from him so went to [facility] sepsis UTI diarrhea history of neurogenic bladder quinolone allergy/sulfa allergy no history of resistant organisms cultures-blood urine, stool, cdiff zosyn/flagyl f/u imaging abd/pelvis Problem List - Problems (1) Sepsis Code(s): A41.9 - SEPSIS, UNSPECIFIED ORGANISM (2) UTI (urinary tract infection) Code(s): N39.0 - URINARY TRACT INFECTION, SITE NOT SPECIFIED (3) Diarrhea Code(s): R19.7 - DIARRHEA, UNSPECIFIED (4) Neurogenic bladder Code(s): N31.9 - NEUROMUSCULAR DYSFUNCTION OF BLADDER, UNSPECIFIED (5) Allergy to multiple antibiotics Code(s): Z88.1 - ALLERGY STATUS TO OTHER ANTIBIOTIC AGENTS STATUS
[2017-12-23] MEDS ORDERED: PIPERACIL/TAZOB 3.375 GM 3.375 GM/50 ML PREMIX IVPB SCH (08:45)
--- NOTE | 2017-12-23 09:01 | CON.CARD ---
Consult Consult Specialty:: cardiology Reason for Consultation:: elevated TNI - History of Present Illness Chief Complaint: A&Ox3; no chest pain or dyspnea presently. History of Present Illness: 72 yo woman with h/o HTN, NIDDM, HLD, CHF, DVT's (on Coumadin), Morbid obesity, and neurogenic bladder BIBA w/ AMS. EMS reports pt. with BS~116, hypotensive SBP ~90s, and responsive, but somonolent. When EMS arrived, pt. was lying on floor mat in urine and feces.Per pt. at bedside she woke up this morning lethargic and confused. When he asked her questions, she responded with garbled speech and sounds. Patient was complaining of chills and with cold intolerance and rigors this AM. Pt. with urine incontinence and fecal incontinence at baseline. Denies hematuria, dysuria, or flank pain. report visit to urgent care yesterday evening and pt. sent out with Cefixime, but did not fill rx.She follows with Dr. Zelaya Urology, and was scheduled to see him oupt. but were unable to. see him in office. Denies CP, SOB, cough, abdominal pain, diarrhea, constipation, lightheadedness, weakness, sensory changes.Denies h/o CVA/TIA. - History Source History Provided By: Patient, Medical Record Limitations to Obtaining History: No Limitations - Past Medical History Cardio/Vascular: Yes: CHF, HTN, Hyperlipdemia (on statin) Pulmonary: Yes: Asthma Reproductive: Yes: Postmenopausal ...: No Psych: Yes: Anxiety Endocrine: Yes: Diabetes Mellitus - Alcohol/Substance Use Hx Alcohol Use: No - Smoking History Smoking history: Never smoked Have you smoked in the past 12 months: No - Social History Usual Living Arrangement: With Spouse Home Medications - Allergies Allergies/Adverse Reactions: Allergies Allergy/AdvReac Type Severity Reaction Status Date / Time ciprofloxacin [From Cipro] Allergy "RASH ON Verified 12/22/17 12:07 LEGS ciprofloxacin HCl Allergy "RASH ON Verified 12/22/17 12:07 [From Cipro] LEGS montelukast sodium Allergy "HALLUCINAT Verified 12/22/17 12:07 [From Singulair] IONS" rofecoxib [From Vioxx] Allergy "DIDN'T Verified 12/22/17 12:07 FEEL RIGHT" Sulfa (Sulfonamide Allergy "RASH ON Verified 12/22/17 12:07 Antibiotics) LEGS" - Home Medications Home Medications: Ambulatory Orders Desmopressin Acetate [Ddavp -] 0.4 mg PO HS 12/22/17 Fluticasone Prop 0.05% Nasal [Flonase -] 1 spray NS HS 12/22/17 Fluticasone Propionate [Flovent Diskus] 250 mcg IH DAILY 12/22/17 Folic Acid - 3 mg PO DAILY 12/22/17 Furosemide [Lasix] 20 mg PO DAILY 12/22/17 Ipratropium/Albuterol Sulfate [Combivent Respimat Inhal [place]] 4 gm IH DAILY Meloxicam 15 mg PO DAILY 12/22/17 Multivit-Min/FA/Lycopen/Lutein [Adults 50+ Multivitamin Tablet] 1 each PO DAILY 12/22/17 Ropinirole HCl 2 mg PO HS 12/22/17 Rosuvastatin [Crestor -] 10 mg PO DAILY 12/22/17 Topiramate 75 mg PO BID 12/22/17 Warfarin Sodium 5 mg PO DAILY 12/22/17 Family Disease History - Family Disease History Family History: Denies Review of Systems - Review of Systems Constitutional: reports: Weakness Eyes: reports: No Symptoms HENT: reports: No Symptoms Neck: reports: No Symptoms Cardiovascular: reports: No Symptoms Respiratory: reports: No Symptoms Gastrointestinal: reports: No Symptoms Genitourinary: reports: Dysuria Breasts: reports: No Symptoms Reported Musculoskeletal: reports: Muscle Weakness Integumentary: reports: No Symptoms Neurological: reports: No Symptoms Endocrine: reports: No Symptoms Hematology/Lymphatic: reports: No Symptoms Psychiatric: reports: Anxiety - Risk Factors Known Risk Factors: Yes: Age, Diabetes Mellitus (elevated glucose, HGBA1c), Hypercholesterolemia, Hypertension, Physical Inactivity, Other Vital Signs: Vital Signs Temperature 98.7 F 12/23/17 06:00 Pulse Rate 77 12/23/17 07:00 Respiratory Rate 21 12/23/17 07:00 Blood Pressure 97/52 12/23/17 07:00 O2 Sat by Pulse Oximetry (%) 98 12/22/17 21:00 Constitutional: Yes: Anxious Eyes: Yes: WNL HENT: Yes: WNL Neck: Yes: WNL Respiratory: Yes: WNL Gastrointestinal: Yes: Soft Renal/: Yes: Other. No: Anuria Cardiovascular: Yes: Tachycardia JVD: No Carotid Bruit: No PMI: Non-Displaced Heart Sounds: Yes: S1, Split S2 Murmur: Yes: Systolic Murmur, Grade 1 Musculoskeletal: Yes: WNL Extremities: Yes: WNL Edema: No Peripheral Pulses WNL: Yes Integumentary: Yes: WNL Neurological: Yes: Alert, Oriented Psychiatric: Yes: Alert, Oriented - Other Data Labs, Other Data: CBC, BMP 12/23/17 05:10 12/23/17 05:10 INR, PTT INR 2.16 (0.82-1.09) H 12/23/17 05:10 Troponin, BNP 12/22/17 12/22/17 12/22/17 11:51 13:25 20:45 Troponin I Cancelled 1.19 H* 0.58 H 12/23/17 05:10 Troponin I 0.23 H Troponin, BNP 12/22/17 12/22/17 12/22/17 11:51 13:25 20:45 Troponin I Cancelled 1.19 H* 0.58 H 12/23/17 05:10 Troponin I 0.23 H Imaging - Results Chest X-ray: Image Reviewed (no acute pathology) EKG: Image Reviewed (sinus tachycardia; RBBB; LAD) Other: Image Reviewed (urine: +bacteria, WBC) Problem List - Problems (1) Sepsis Assessment/Plan: hypotension despite 3.0 liters fluid has led to starting norepinephrine. Hx UTIs. Antibiotics per ID. Code(s): A41.9 - SEPSIS, UNSPECIFIED ORGANISM Qualifiers: Qualified Code(s): A40.9 - Streptococcal sepsis, unspecified; A40 - Streptococcal sepsis (2) UTI (urinary tract infection) Code(s): N39.0 - URINARY TRACT INFECTION, SITE NOT SPECIFIED (3) HLD (hyperlipidemia) Code(s): E78.5 - HYPERLIPIDEMIA, UNSPECIFIED Qualifiers: Hyperlipidemia type: other hyperlipidemia Qualified Code(s): E78.4 - Other hyperlipidemia (4) History of DVT (deep vein thrombosis) Assessment/Plan: keep INR 2-3 on warfarin. F/u hx, prior workup. Code(s): Z86.718 - PERSONAL HISTORY OF OTHER VENOUS THROMBOSIS AND EMBOLISM (5) Morbid obesity Code(s): E66.01 - MORBID (SEVERE) OBESITY DUE TO EXCESS CALORIES (6) [place] cardiac risk >20% in next 10 years Code(s): Z91.89 - [facility] PERSONAL RISK FACTORS, NOT ELSEWHERE CLASSIFIED (7) Hypotension Code(s): I95.9 - HYPOTENSION, UNSPECIFIED (8) Hypophosphatemia Assessment/Plan: replete; f/u all electrolytes. Code(s): E83.39 - OTHER DISORDERS OF PHOSPHORUS METABOLISM (9) Hypomagnesemia Assessment/Plan: replete; f/u all electrolytes. Code(s): E83.42 - HYPOMAGNESEMIA
[2017-12-23] MEDS: D5-1/2NS+40 MEQ KCL - 40 MEQ/1,000 ML INFUS.BAG IV SCH ×2 (09:10→15:44)
--- NOTE | 2017-12-23 09:29 | CONS ---
DATE OF CONSULTATION: DATE OF DICTATION: 12/23/2017 REQUESTED BY: Hospitalist Service This is a 72-year-old woman with past medical history of neurogenic bladder and obesity. She normally has some urinary incontinence; this week noted she had urinary retention for several days. She called the urologist, who she was not able to reach. She is followed by Dr. Zelaya. [facility], where she was told she had a UTI. She reports getting 2 pink pills there; told to take 1 Sunday night and 1 Sunday morning; and to fill a prescription. She took the pink pills, she states, as ordered, at least Sunday night. Sunday morning, her apparently found her confused with garbled speech and rigors. She was found by EMS lying on the floor in urine and feces. She was brought to the emergency room, where she was noted to be hypotensive. She also has had, for the last several days, she is unclear of how long, nonbloody diarrhea. She has no abdominal pain. She had 1 episode of nausea and vomiting in the emergency room. She was febrile to 103.8 in the ER, she was hypotensive. She received fluids and was started on Levophed. After a central line was placed, she received vancomycin and Zosyn and Flagyl and was admitted to the ICU. She is currently awake and alert. She is receiving fluids. She is not on any pressors anymore. She is alert and has been able to recall all this history to me. CT scan of her abdomen and pelvis and head have been done, the results of which are pending. PAST MEDICAL HISTORY: Notable for history of hypertension, hyperlipidemia, noninsulin-dependent diabetes, heart failure, multiple DVTs, morbid obesity, neurogenic bladder. PRIMARY MEDICAL DOCTOR: Shad Joyce MD UROLOGIST: Loyd Zelaya MD She has no history of resistant organisms. She has not had a urinary tract infection in a very long time. PAST SURGICAL HISTORY: Notable for cholecystectomy, bilateral knee replacement. She is allergic to CIPROFLOXACIN, SULFA DRUGS, VIOXX, and SINGULAIR. MEDICINES AT HOME: This medication list had not been confirmed. Qvar; calcium; desmopressin; Toviaz; Flonase; folic acid; Lasix; losartan; multivitamins; ropinirole and Crestor as well as Topamax; Coumadin; Cozaar. SOCIAL HISTORY: She is . She lives with her . She reports that usually she takes care of him. There is no history of any cigarette or substance use. REVIEW OF SYSTEMS: As stated before, she has not had a urinary tract infection in a long time. Currently, she is feeling much improved. She is quite alert. She has no chest pain or abdominal pain. PHYSICAL EXAMINATION: Vital Signs: Temperature is 98.7, temperature maximum was 103.8 in the emergency room, blood pressure is 97/52, respiratory rate is 20, heart rate is 77. She weighs 283 pounds. HEENT: She is normocephalic. Her eyes are anicteric. Neck: Supple. Lungs: Clear to auscultation. Heart: Regular rate and rhythm. Abdomen: Soft, nontender. Extremities: She has bilateral total knee replacement scars. She has a Queen in place and a right-sided central line. Her white count on admission was 13.9, today is 16.5; hemoglobin 10.2; platelets of 136. INR is 2. On admission BUN was 26, creatinine 1.5 with a potassium of 2.7, lactic acid was 2.7. This morning, lactic acid is 0.8 with a potassium of 3.3, BUN of 22, and creatinine 1.1. Troponins were positive with a peak at 1.19; this morning is 0.23. Urinalysis is 2+ leukocyte esterase with 953 white cells. Influenza screen is negative. Cultures are pending. Chest x-ray reveals a new central line. No pneumothorax. SUMMARY: This is a 72-year-old woman with sepsis, urinary tract infection, diarrhea, history of neurogenic bladder, QUINOLONE and SULFA allergies. No history of resistant organisms. Cultures are pending, blood, urine, Clostridium difficile. Would treat her with Zosyn and Flagyl; followup imaging studies. Further recommendations to follow. Marleen [id number]
[2017-12-23] MEDS ORDERED: PT OWN MED DRAWER 7, Y5N ONE ×6 (09:49→19:12)
--- NOTE | 2017-12-23 09:56 | PN ---
Progress Note (short form) - Note Progress Note: PULMONARY/CCM Pt seen and examined in the ICU. Off pressors overnight. Mental status improved. Still thirsty and dry. LLQ pain. Last Vital Signs Temp Pulse Resp BP Pulse Ox 98.9 F 78 20 104/77 100 12/23/17 08:00 12/23/17 09:00 12/23/17 08:00 12/23/17 09:00 12/23/17 09:00 Intake & Output 12/20/17 12/21/17 12/22/17 12/23/17 23:59 23:59 23:59 23:59 Intake Total 3500 2050 Output Total 150 1300 Balance 3350 750 Weight 129.274 kg 128.684 kg Gen: more awake, alert Heart: RRR Lung: decreased breath sounds at the bases Abd: soft, nontender Ext: no edema CBC, BMP 12/23/17 05:10 12/23/17 05:10 Active Medications Albuterol Sulfate (Ventolin 0.083% Nebulizer Soln -) 1 amp NEB Q4H PRN PRN Reason: SHORT OF BREATH/WHEEZING Last Admin: 12/22/17 21:56 Dose: 1 amp Chlorhexidine Gluconate (Hibiclens For Decolonization -) 1 applic TP HS RAMBO Last Admin: 12/22/17 22:06 Dose: 1 applic Desmopressin Acetate (Ddavp -) 0.4 mg PO HS RAMBO Heparin Sodium (Porcine) (Heparin -) 5,000 unit SQ TID RAMBO Last Admin: 12/23/17 07:27 Dose: Not Given Norepinephrine Bitartrate 8, (000 mcg/ Dextrose) 500 mls @ 18.75 mls/hr IV TITR RAMBO; 5 MCG/MIN PRN Reason: Protocol Last Titration: 12/23/17 07:00 Dose: 0 mcg/min, 0 mls/hr Dextrose/Sodium Chloride (D5-1/2ns+40 Meq Kcl -) 40 meq in 1,000 mls @ 100 mls/ hr IV ASDIR RAMBO Last Admin: 12/23/17 09:10 Dose: 100 mls/hr Metronidazole (Flagyl 500mg Premixed Ivpb -) 500 mg in 100 mls @ 100 mls/hr IVPB Q8H-IV RAMBO Last Admin: 12/23/17 09:51 Dose: 100 mls/hr Piperacillin Sod/Tazobactam (Sod 3.375 gm/ Dextrose) 50 mls @ 100 mls/hr IVPB Q8H-IV RAMBO Mupirocin (Bactroban Ointment (For Decolonization) -) 1 applic NS BID [facility] Stop: 12/27/17 21:59 Last Admin: 12/22/17 22:07 Dose: 1 applic Ropinirole HCl (Requip -) 2 mg PO HS [facility] Last Admin: 12/22/17 22:06 Dose: 2 mg Rosuvastatin Calcium (Crestor -) 10 mg PO HS RAMBO Topiramate (Topamax -) 75 mg PO BID [facility] Last Admin: 12/22/17 22:06 Dose: 75 mg A/P UTI Septic Shock Acute Kidney Injury Nephrolithiasis Lactic Acidosis +Troponins likely Demand Ischemia Asthma DM Hyperlipidemia h/o DVT Morbid Obesity - IV antibiotics - f/u cultures - continue IVF - monitoring off pressors - replete lytes - echocardiogram - f/u CT A/P, renal ultrasound - continue anticoagulation - inhaled bronchodilators - PO as tolerated - can monitor on floor critical care time spent in reviewing chart, evaluating patient and formulating plan 35 min Problem List - Problems (1) UTI (urinary tract infection) Code(s): N39.0 - URINARY TRACT INFECTION, SITE NOT SPECIFIED (2) Septic shock Code(s): A41.9 - SEPSIS, UNSPECIFIED ORGANISM; R65.21 - SEVERE SEPSIS WITH SEPTIC SHOCK (3) GABRIELE (acute kidney injury) Code(s): N17.9 - ACUTE KIDNEY FAILURE, UNSPECIFIED (4) Hypokalemia Code(s): E87.6 - HYPOKALEMIA (5) Lactic acidosis Code(s): E87.2 - ACIDOSIS (6) CHF (congestive heart failure) Code(s): I50.9 - HEART FAILURE, UNSPECIFIED (7) HLD (hyperlipidemia) Code(s): E78.5 - HYPERLIPIDEMIA, UNSPECIFIED Qualifiers: Hyperlipidemia type: other hyperlipidemia Qualified Code(s): E78.4 - Other hyperlipidemia (8) History of DVT (deep vein thrombosis) Code(s): Z86.718 - PERSONAL HISTORY OF OTHER VENOUS THROMBOSIS AND EMBOLISM (9) Neurogenic dysfunction of the urinary bladder Code(s): N31.9 - NEUROMUSCULAR DYSFUNCTION OF BLADDER, UNSPECIFIED
[2017-12-23] MEDS ORDERED: POTASSIUM CHLORIDE TABS 20 MEQ TABLET.ER (FP) PO ONE (09:57)
[2017-12-23] MEDS ORDERED: MAGNESIUM SULF 50% (8.12 MEQ/2 ML-1 GM VIAL) IVPB ONE (09:58)
[2017-12-23] MEDS ORDERED: MAGNESIUM OXIDE 400 MG TABLET (FP) PO ONE (09:58)
[2017-12-23] MEDS: TOPIRAMATE 25 MG TABLET (FP) PO SCH ×2 (10:02→22:25)
[2017-12-23] MEDS: MUPIROCIN 2% TOPICAL OINTMENT FOR DECOLONIZATION NS SCH ×2 (10:04→22:28)
[2017-12-23] MEDS ORDERED: MAGNESIUM SULFATE IN WATER 2 GM/50 ML IVPB IVPB ONE (10:15)
--- NOTE | 2017-12-23 10:47 | CON.GU ---
Consult Consult Specialty:: Referred by:: Cherie Reason for Consultation:: ureteral calculus - History of Present Illness Chief Complaint: AMS History of Present Illness: 72 yo f w PMH HTN, HLD, CHF DVTs on coumadin, neurogenic bladder w incontinence , recent urinary retention and out pt rx for UTI adm 12/22/17 w sepsis, found to have 5 mm R distal ureteral calculus and hydronephrosis and cons req. - History Source History Provided By: Patient, Medical Record Limitations to Obtaining History: No Limitations - Past Medical History Cardio/Vascular: Yes: CHF Pulmonary: Yes: Asthma ...: No Endocrine: Yes: Diabetes Mellitus - Alcohol/Substance Use Hx Alcohol Use: No - Smoking History Smoking history: Never smoked Have you smoked in the past 12 months: No Home Medications - Allergies Allergies/Adverse Reactions: Allergies Allergy/AdvReac Type Severity Reaction Status Date / Time ciprofloxacin [From Cipro] Allergy "RASH ON Verified 12/22/17 12:07 LEGS ciprofloxacin HCl Allergy "RASH ON Verified 12/22/17 12:07 [From Cipro] LEGS montelukast sodium Allergy "HALLUCINAT Verified 12/22/17 12:07 [From Singulair] IONS" rofecoxib [From Vioxx] Allergy "DIDN'T Verified 12/22/17 12:07 FEEL RIGHT" Sulfa (Sulfonamide Allergy "RASH ON Verified 12/22/17 12:07 Antibiotics) LEGS" - Home Medications Home Medications: Ambulatory Orders Desmopressin Acetate [Ddavp -] 0.4 mg PO HS 12/22/17 Fluticasone Prop 0.05% Nasal [Flonase -] 1 spray NS 12/22/17 Fluticasone Propionate [Flovent Diskus] 250 mcg IH DAILY 12/22/17 Folic Acid - 3 mg PO DAILY 12/22/17 Furosemide [Lasix] 20 mg PO DAILY 12/22/17 Ipratropium/Albuterol Sulfate [Combivent Respimat Inhal [place]] 4 gm IH DAILY Meloxicam 15 mg PO DAILY 12/22/17 Multivit-Min/FA/Lycopen/Lutein [Adults 50+ Multivitamin Tablet] 1 each PO DAILY 12/22/17 Ropinirole HCl 2 mg PO 12/22/17 Rosuvastatin [Crestor -] 10 mg PO DAILY 12/22/17 Topiramate 75 mg PO BID 12/22/17 Warfarin Sodium 5 mg PO DAILY 12/22/17 Review of Systems - Review of Systems Genitourinary: reports: Incontinence Physical Exam- Vital Signs: Vital Signs Temperature 98.9 F 12/23/17 08:00 Pulse Rate 78 12/23/17 09:00 Respiratory Rate 20 12/23/17 08:00 Blood Pressure 104/77 12/23/17 09:00 O2 Sat by Pulse Oximetry (%) 100 12/23/17 09:00 Gastrointestinal: Yes: Normal Bowel Sounds, Soft Labs: CBC, BMP 12/23/17 05:10 12/23/17 05:10 Imaging - Results Cat Scan: Report Reviewed, Image Reviewed Ultrasound: Image Reviewed Problem List - Problems (1) Sepsis Assessment/Plan: urine c+s , iv abxs, ICU care Code(s): A41.9 - SEPSIS, UNSPECIFIED ORGANISM Qualifiers: Qualified Code(s): A40.9 - Streptococcal sepsis, unspecified; A40 - Streptococcal sepsis (2) Ureteral calculus Code(s): N20.1 - CALCULUS OF URETER (3) Hydronephrosis Assessment/Plan: Pt needs cystoscopy and R JJ stent insertion MISBAH. Pt requesting her PMD Loyd Zelaya. Code(s): N13.30 - UNSPECIFIED HYDRONEPHROSIS
[2017-12-23] MEDS ORDERED: ACETAMINOPHEN 325 MG TABLET (FP) PO ONE (13:01)
[2017-12-23] MEDS: PIPERACILLIN/TAZOB 3.375 GM 3.375 GM in DEXTROSE 5%-WATER - 50 ML IVPB SCH ×3 (15:25→18:28)
--- NOTE | 2017-12-23 15:53 | PN ---
Teaching Attending Note Name of Resident: Ryan Alexis SUBJECTIVE: Patient seen and examined, overall feels better, still with diarrhea. No urinary symptoms currently. NO nausea, vomiting, some minimal Left sided abdominal pain. no dyspnea, dizziness or new concerns. OBJECTIVE: Vital Signs Period Temp Pulse Resp BP Sys/Dennis Pulse Ox Last 24 Hr 98 F-99.2 F 73-110 17-33 91-136/47-85 98-100 Intake & Output 12/20/17 12/21/17 12/22/17 12/23/17 23:59 23:59 23:59 23:59 Intake Total 3500 2350 Output Total 150 2600 Balance 3350 -250 Weight 285 lb 283 lb 11.2 oz General:lying in bed, morbidly obese, in no acute distress Chest: limited by body habitus, no rales or wheezing Abdomen: soft, obese, minimal and improved tenderness and left outer lower quadrant, no voluntary or involuntary guarding or rigidity, no suprapubic tenderness noted extremities: no edema Home Medication List Medication Instructions Recorded Confirmed Type Desmopressin Acetate [Ddavp -] 0.4 mg PO HS 12/22/17 12/22/17 History Fluticasone Prop 0.05% Nasal 1 spray NS HS 12/22/17 12/22/17 History [Flonase -] Fluticasone Propionate [Flovent 250 mcg IH DAILY 12/22/17 12/22/17 History Diskus] Folic Acid - 3 mg PO DAILY 12/22/17 12/22/17 History Furosemide [Lasix] 20 mg PO DAILY 12/22/17 12/22/17 History Ipratropium/Albuterol Sulfate 4 gm IH DAILY 12/22/17 12/22/17 History [Combivent Respimat Inhal [place]] Meloxicam 15 mg PO DAILY 12/22/17 12/22/17 History Multivit-Min/FA/Lycopen/Lutein 1 each PO DAILY 12/22/17 12/22/17 History [Adults 50+ Multivitamin Tablet] Ropinirole HCl 2 mg PO HS 12/22/17 12/22/17 History Rosuvastatin [Crestor -] 10 mg PO DAILY 12/22/17 12/22/17 History Topiramate 75 mg PO BID 12/22/17 12/22/17 History Warfarin Sodium 5 mg PO DAILY 12/22/17 12/22/17 History Active Medications Generic Name Dose Route Start Last Admin Trade Name Freq PRN Reason Stop Dose Admin Albuterol Sulfate 1 amp 12/22/17 21:12 12/22/17 21:56 Ventolin 0.083% Nebulizer Soln - NEB 1 amp Q4H PRN Administration SHORT OF BREATH/WHEEZING Chlorhexidine Gluconate 1 applic 12/22/17 22:00 12/22/17 22:06 Hibiclens For Decolonization - TP 1 applic HS RAMBO Administration Desmopressin Acetate 0.4 mg 12/22/17 22:00 Ddavp - PO HS RAMBO Heparin Sodium (Porcine) 5,000 unit 12/22/17 22:00 12/23/17 15:45 Heparin - SQ 5,000 unit TID RAMBO Administration Norepinephrine Bitartrate 8, 500 mls @ 18.75 mls/hr 12/22/17 13:00 12/23/17 15:44 000 mcg/ Dextrose IV Not Given TITR RAMBO Protocol 5 MCG/MIN Dextrose/Sodium Chloride 40 meq in 1,000 mls @ 100 mls/hr 12/22/17 15:45 10/11 15:44 D5-1/2ns+40 Meq Kcl - IV Not Given ASDIR RAMBO Metronidazole 500 mg in 100 mls @ 100 mls/hr 12/22/17 18:00 12/23/17 09:51 Flagyl 500mg Premixed Ivpb - IVPB 100 mls/hr Q8H-IV RAMBO Administration Piperacillin Sod/Tazobactam 50 mls @ 100 mls/hr 12/23/17 09:00 12/23/17 15:26 Sod 3.375 gm/ Dextrose IVPB Not Given Q8H-IV RAMBO Mupirocin 1 applic 12/22/17 22:00 12/23/17 10:04 Bactroban Ointment (For Decolonization) - NS 12/27/17 21:59 1 applic BID RAMBO Administration Ropinirole HCl 2 mg 12/22/17 22:00 12/22/17 22:06 Requip - PO 2 mg HS RAMBO Administration Rosuvastatin Calcium 10 mg 12/23/17 22:00 Crestor - PO HS RAMBO Topiramate 75 mg 12/22/17 22:00 12/23/17 10:02 Topamax - PO 75 mg BID RAMBO Administration Laboratory Results - last 24 hr 12/22/17 12/22/17 12/23/17 20:45 20:45 05:10 WBC 16.5 H RBC 3.45 L D Hgb 10.2 L D Hct 30.9 L D MCV 89.6 MCH 29.5 MCHC 33.0 RDW 17.9 H Plt Count 136 MPV 8.2 Neutrophils % 84.1 H Lymphocytes % 9.5 D Monocytes % 5.7 D Eosinophils % 0.5 D Basophils % 0.2 PT with INR INR Sodium 145 Potassium 3.2 L Chloride 117 H Carbon Dioxide 20 L Anion Gap 8 BUN 25 H Creatinine 1.5 H Creat Clearance w eGFR Random Glucose 136 H Lactic Acid 1.6 Calcium 7.0 L Phosphorus Magnesium Total Bilirubin AST ALT Alkaline Phosphatase Creatine Kinase 244 H Creatine Kinase Index 0.8 CK-MB (CK-2) 2.010 Troponin I 0.58 H Total Protein Albumin 12/23/17 12/23/17 12/23/17 05:10 05:10 05:10 WBC RBC Hgb Hct MCV MCH MCHC RDW Plt Count MPV Neutrophils % Lymphocytes % Monocytes % Eosinophils % Basophils % PT with INR 24.40 H INR 2.16 H Sodium 148 H Potassium 3.3 L Chloride 119 H Carbon Dioxide 18 L Anion Gap 11 BUN 22 H Creatinine 1.1 H Creat Clearance w eGFR 48.55 Random Glucose 100 Lactic Acid Calcium 7.1 L Phosphorus 2.1 L Magnesium 1.7 L Total Bilirubin 0.2 D AST 22 ALT 23 Alkaline Phosphatase 43 L Creatine Kinase 185 Creatine Kinase Index 0.7 CK-MB (CK-2) 1.403 Troponin I 0.23 H Total Protein 4.7 L Albumin 2.3 L 12/23/17 05:10 WBC RBC Hgb Hct MCV MCH MCHC RDW Plt Count MPV Neutrophils % Lymphocytes % Monocytes % Eosinophils % Basophils % PT with INR INR Sodium Potassium Chloride Carbon Dioxide Anion Gap BUN Creatinine Creat Clearance w eGFR Random Glucose Lactic Acid 0.8 Calcium Phosphorus Magnesium Total Bilirubin AST ALT Alkaline Phosphatase Creatine Kinase Creatine Kinase Index CK-MB (CK-2) Troponin I Total Protein Albumin Microbiology 12/22/17 12:43 Stool Clostridium difficile Antigen (SUZETTE) - Final 12/22/17 12:43 Stool Clostridium difficile Toxin Assay - Final 12/22/17 11:40 Blood - Peripheral Venous Blood Culture - Preliminary NO GROWTH OBTAINED AFTER 24 HOURS, INCUBATION TO CONTINUE FOR 4 DAYS. 12/22/17 11:51 Blood - Peripheral Venous Blood Culture - Preliminary NO GROWTH OBTAINED AFTER 24 HOURS, INCUBATION TO CONTINUE FOR 4 DAYS. 12/22/17 14:45 Nasopharyngeal Swab Influenza Types A,B Antigen (SUZETTE) - Final 12/22/17 14:45 Nasopharyngeal Swab - Final CT A/P results reviewed prelim with 3 mm left non obstructive renal calculi, 5 mm possible right ureteral stone with right hydroureteronephrosis, ?urinoma ASSESSMENT AND PLAN: 72 yof with PMhx of DVT on coumadin, neurogenic bladder with incontinence/ retention, admitted with septic shock secondary to UTI, diarrhea, and abdominal pain.; -Septic shock, likely secondary to complicated UTI with obstructive uropathy/ Right ureteral stone with hydroureteronephrosis -Diarrhea/nausea, C diffile ruled out -H/o DVT on coumadin -GABRIELE likely hypovolumia/sepsis withretention/obstructive process, improved -Elevated Troponin, suspicious for demand type II NSTEMI from above, no concerning EKG changes or chest symptoms -Restless pain syndrome Plan: zosyn day 1, ID input appreciated, Off pressors, continue IVF, follow up blood/ urine cultures. CT A/P with right obstructive uropathy. Urology consulted with Dr. Mack ( covering for Dr. Zelaya), plan for cystoscopy/Right JJ stent insertion. NPO after midnight, continue to hold coumadin. Stool C difficile neg, d/c flagyl. Continue mcfarlane. hold nephrotoxic medications. Hold lasix/NSAIDs, monitor renal function. Hold coumadin given above, start heparin once INR subtherapeutic per surgical plans. Troponin trended down, no EKG or Chest pain concerns, follow up 2D echo/ Cardiology input. continue desmopressin, ropinirole, topiramate. DVTPPX as above, GIPPX on antibiotics Plan discussed with Dr. Gonzalez, Dr. Mack, patient and at bedside in detail , all questions answered. Total critical care spent 35 min.
--- NOTE | 2017-12-23 16:17 | EKG ---
Test Reason : Blood Pressure : / mmHG Vent. Rate : 101 BPM Atrial Rate : 101 BPM P-R Int : 140 ms QRS Dur : 138 ms QT Int : 438 ms P-R-T Axes : 059 -44 035 degrees QTc Int : 567 ms SINUS TACHYCARDIA LEFT AXIS DEVIATION RIGHT BUNDLE BRANCH BLOCK ABNORMAL ECG Confirmed by MD CAROL ANN, DIANE ([id number]) on 12/23/2017 4:17:42 PM Referred By: Confirmed By:DIANE MAHARAJ MD
[2017-12-23] MEDS: rOPINIRole HCL 1 MG TABLET (FP) PO SCH (22:27)
[2017-12-23] MEDS: CHLORHEXIDINE GLUCONATE 4% CLEANSER FOR DECOLONIZATION TP SCH (22:28)
[2017-12-23] MEDS: ROSUVASTATIN CA 10 MG TABLET (FP) PO SCH (22:28)
[2017-12-23] MEDS: ACETAMINOPHEN 325 MG TABLET (FP) PO PRN (22:55)
[2017-12-23] MEDS: DESMOPRESSIN ACETATE 0.2 MG TABLET PO SCH ×2 (22:56→23:13)
[2017-12-24 00:05] LABS: ANION GAP 8 (8-16); BLOOD UREA NITROGEN 13 mg/dL (7-18); CALCIUM 7.7 mg/dL (8.5-10.1); CHLORIDE 119 mmol/L (98-107); CO2 18 mmol/L (21-32); CREATININE 0.8 mg/dL (0.55-1.02); GLUCOSE,RANDOM 115 mg/dL (74-106); MAGNESIUM 2.5 mg/dL (1.8-2.4); PHOSPHOROUS 1.5 mg/dL (2.5-4.9); POTASSIUM 3.9 mmol/L (3.5-5.1); SODIUM 145 mmol/L (136-145)
[2017-12-24] MEDS ORDERED: D5-1/2NS+20 MEQ KCL - 20 MEQ/1,000 ML INFUS.BAG IV SCH (00:30)
[2017-12-24] MEDS ORDERED: POTASSIUM PHOSPHATE 15 MM in DEXTROSE 5%-WATER - 250 ML IVPB ONE (00:40)
[2017-12-24] MEDS: PIPERACILLIN/TAZOB 3.375 GM 3.375 GM in DEXTROSE 5%-WATER - 50 ML IVPB SCH ×3 (03:13→17:20)
--- NOTE | 2017-12-24 04:53 | PN ---
Progress Note, Physician Chief Complaint: Pt A&Ox3; no chest pain or dyspnea. History of Present Illness: 72 yo woman with h/o HTN, NIDDM, HLD, CHF, DVT's (on Coumadin), Morbid obesity, and neurogenic bladder BIBA w/ AMS. EMS reports pt. with BS~116, hypotensive SBP ~90s, and responsive, but somonolent. When EMS arrived, pt. was lying on floor mat in urine and feces.Per pt. at bedside she woke up this morning lethargic and confused. When he asked her questions, she responded with garbled speech and sounds. Patient was complaining of chills and with cold intolerance and rigors this AM. Pt. with urine incontinence and fecal incontinence at baseline. Denies hematuria, dysuria, or flank pain. report visit to urgent care yesterday evening and pt. sent out with Cefixime, but did not fill rx.She follows with Dr. Zelaya [facility], and was scheduled to see him oupt. but were unable to. see him in office. Denies CP, SOB, cough, abdominal pain, diarrhea, constipation, lightheadedness, weakness, sensory changes.Denies h/o CVA/TIA. - Current Medication List Current Medications: Active Medications Acetaminophen (Tylenol -) 650 mg PO Q6H PRN PRN Reason: FEVER Last Admin: 12/23/17 22:55 Dose: 650 mg Albuterol Sulfate (Ventolin 0.083% Nebulizer Soln -) 1 amp NEB Q4H PRN PRN Reason: SHORT OF BREATH/WHEEZING Last Admin: 12/22/17 21:56 Dose: 1 amp Chlorhexidine Gluconate (Hibiclens For Decolonization -) 1 applic TP HS RAMBO Last Admin: 12/23/17 22:28 Dose: 1 applic Desmopressin Acetate (Ddavp -) 0.4 mg PO HS RAMBO Last Admin: 12/23/17 23:13 Dose: 0.4 mg Norepinephrine Bitartrate 8, (000 mcg/ Dextrose) 500 mls @ 18.75 mls/hr IV TITR RAMBO; 5 MCG/MIN PRN Reason: Protocol Last Admin: 12/23/17 15:44 Dose: Not Given Metronidazole (Flagyl 500mg Premixed Ivpb -) 500 mg in 100 mls @ 100 mls/hr IVPB Q8H-IV RAMBO Last Admin: 12/24/17 03:13 Dose: 100 mls/hr Piperacillin Sod/Tazobactam (Sod 3.375 gm/ Dextrose) 50 mls @ 100 mls/hr IVPB Q8H-IV RAMBO Last Admin: 12/24/17 03:13 Dose: 100 mls/hr Potassium Chloride/Dextrose/Sod Cl (D5-1/2ns+20 Meq Kcl -) 20 meq in 1,000 mls @ 100 mls/hr IV ASDIR [facility] Last Admin: 12/24/17 00:58 Dose: 100 mls/hr Mupirocin (Bactroban Ointment (For Decolonization) -) 1 applic NS BID [facility] Stop: 12/27/17 21:59 Last Admin: 12/23/17 22:28 Dose: 1 applic Ropinirole HCl (Requip -) 2 mg PO [facility] Last Admin: 12/23/17 22:27 Dose: 2 mg Rosuvastatin Calcium (Crestor -) 10 mg PO [facility] Last Admin: 12/23/17 22:28 Dose: 10 mg Topiramate (Topamax -) 75 mg PO BID [facility] Last Admin: 12/23/17 22:25 Dose: 75 mg - Objective Vital Signs: Vital Signs Temperature 98.7 F 12/24/17 02:00 Pulse Rate 75 12/24/17 04:00 Respiratory Rate 21 12/24/17 04:00 Blood Pressure 117/70 12/24/17 04:00 O2 Sat by Pulse Oximetry (%) 100 12/23/17 20:42 Constitutional: Yes: Calm Eyes: Yes: WNL HENT: Yes: WNL Neck: Yes: WNL Cardiovascular: Yes: Regular Rate and Rhythm, S2 (split) Respiratory: Yes: Regular Gastrointestinal: Yes: Soft, Abdomen, Obese ...Rectal Exam: Yes: Deferred Genitourinary: No: Anuria Breast(s): Yes: WNL Musculoskeletal: Yes: Muscle Weakness Extremities: Yes: WNL Edema: No Peripheral Pulses WNL: Yes Integumentary: Yes: WNL Neurological: Yes: WNL Psychiatric: Yes: WNL Labs: CBC, BMP 12/23/17 05:10 12/23/17 23:00 INR, PTT INR 2.16 (0.82-1.09) H 12/23/17 05:10 - ....Imaging Other: Image Reviewed (telemetry: NSR) Problem List - Problems (1) Sepsis Assessment/Plan: Now off norepinephrine; BP holding. Continue fluids; f/u Is and Os, Hb, electrolytes. UTI On antibiotics per ID. Code(s): A41.9 - SEPSIS, UNSPECIFIED ORGANISM (2) UTI (urinary tract infection) Code(s): N39.0 - URINARY TRACT INFECTION, SITE NOT SPECIFIED (3) HLD (hyperlipidemia) Code(s): E78.5 - HYPERLIPIDEMIA, UNSPECIFIED Qualifiers: Hyperlipidemia type: other hyperlipidemia Qualified Code(s): E78.4 - Other hyperlipidemia (4) History of DVT (deep vein thrombosis) Assessment/Plan: keep INR 2-3 on warfarin. F/u hx, prior workup. Code(s): Z86.718 - PERSONAL HISTORY OF OTHER VENOUS THROMBOSIS AND EMBOLISM (5) Morbid obesity Code(s): E66.01 - MORBID (SEVERE) OBESITY DUE TO EXCESS CALORIES (6) [place] cardiac risk >20% in next 10 years Assessment/Plan: f/u prior cardiac workup. ECHO for LVEF, wall motion, valve status. Code(s): Z91.89 - OTH PERSONAL RISK FACTORS, NOT ELSEWHERE CLASSIFIED (7) Hypotension Assessment/Plan: continue fluids. On antibiotics per ID. Code(s): I95.9 - HYPOTENSION, UNSPECIFIED (8) Hypophosphatemia Assessment/Plan: repleted; f/u all electrolytes. Code(s): E83.39 - OTHER DISORDERS OF PHOSPHORUS METABOLISM (9) Hypomagnesemia Assessment/Plan: repleted; f/u all electrolytes. Code(s): E83.42 - HYPOMAGNESEMIA (10) Elevated troponin Assessment/Plan: TNI 1.19-->0.58; CK/MB relative index not elevated. TNI elevation likely 2ndary to sepsis; however, multiple CAD risks, which should engender coronary artery evaluation, once stable, if not done recently. Code(s): R74.8 - ABNORMAL LEVELS OF OTHER SERUM ENZYMES Assessment/Plan cc time spent 45 minutes.
[2017-12-24 06:02] LABS: BASO % 0.3 % (0-2.0); EOS % 2.3 % (0-4.5); HEMATOCRIT 30.1 % (32.4-45.2); MCHC 33.3 g/dl (32.0-36.0); MEAN CELL VOLUME 89.9 fl (80-96); MEAN PLT VOLUME 8.3 fl (7.5-11.1); MONO % 6.4 % (3.8-10.2); PLATELET COUNT 119 K/MM3 (134-434); RBC 3.35 M/mm3 (3.60-5.2); RDW 18.4 % (11.6-15.6); WHITE BLOOD COUNT 8.7 K/mm3 (4.0-10.0)
[2017-12-24] MEDS ORDERED: ONDANSETRON 4 MG/2 ML VIAL IVPUSH ONE (06:09)
--- NOTE | 2017-12-24 06:14 | PN ---
Physical Exam: SUBJECTIVE: Patient seen and examined - No major overnight events. Afebrile, VSS. off pressors. frequent BMs still. Martina to see in AM for possible cysto/renal stenting - Endorsing nausea in AM, 2x NBNB vomiting; NPO overnight; No f/c; still with persistent diarrhea; no cp, cough, ab pain, back pain, lightheadness, benavides, focal neuro deficits OBJECTIVE: Vital Signs Intake & Output 12/21/17 12/22/17 12/23/17 12/24/17 23:59 23:59 23:59 23:59 Intake Total 3500 4050 Output Total 150 3450 Balance 3350 600 Weight 129.274 kg 128.684 kg Period Temp Pulse Resp BP Sys/Dennis Pulse Ox Last 24 Hr 98 F-98.9 F 75-110 18-25 97-144/52-99 100-100 GENERAL: Obese elderly woman, laying in bed, A&Ox3 HEAD: Normal with no signs of trauma. EYES: Pupils equal, round and reactive to light, extraocular movements intact, sclera anicteric, conjunctiva clear. No lid lag. EARS, NOSE, THROAT: Ears normal, nares patent, oropharynx clear without exudates. Moist mucous membranes. NECK: R IJ central line noted with no erythema, edema or oozing. No JVD noted. LUNGS: Moderate air entry. No wheezing or rhochi noted. Limited by body habitus. HEART: Distant heart sounds. Regular rate and rhythm, normal S1 and S2 without murmur, rub or gallop. ABDOMEN: Globular abdomen. Normoactive bowel sounds, no guarding, no rebound, no masses. Slight CVA tenderness in L flank UPPER EXTREMITIES: 2+ pulses, warm, well-perfused. No cyanosis. No clubbing. No peripheral edema. LOWER EXTREMITIES: BL statis dermatitis skin changes to lower shank. 1+ DP/PT in R leg, 2+ pulses in L. No calf tenderness. No peripheral edema. NEUROLOGICAL: Cranial nerves II-XII intact. Normal speech. 5/5 strength grossly in all extremities, preserved sensation diffusely. Facial symmetry. Gait not observed. PSYCHIATRIC: Cooperative. Good eye contact. Appropriate mood and affect. Laboratory Results - last 24 hr CBC, BMP 12/24/17 05:05 12/24/17 05:05 12/23/17 12/23/1718 05:10 05:10 05:10 WBC 16.5 H RBC 3.45 L D Hgb 10.2 L D Hct 30.9 L D MCV 89.6 MCH 29.5 MCHC 33.0 RDW 17.9 H Plt Count 136 MPV 8.2 Neutrophils % 84.1 H Lymphocytes % 9.5 D Monocytes % 5.7 D Eosinophils % 0.5 D Basophils % 0.2 PT with INR 24.40 H INR 2.16 H Sodium 148 H Potassium 3.3 L Chloride 119 H Carbon Dioxide 18 L Anion Gap 11 BUN 22 H Creatinine 1.1 H Creat Clearance w eGFR 48.55 Random Glucose 100 Lactic Acid Calcium 7.1 L Phosphorus 2.1 L Magnesium 1.7 L Total Bilirubin 0.2 D AST 22 ALT 23 Alkaline Phosphatase 43 L Creatine Kinase Creatine Kinase Index CK-MB (CK-2) Troponin I Total Protein 4.7 L Albumin 2.3 L 12/23/17 12/23/17 12/23/17 05:10 05:10 23:00 WBC RBC Hgb Hct MCV MCH MCHC RDW Plt Count MPV Neutrophils % Lymphocytes % Monocytes % Eosinophils % Basophils % PT with INR INR Sodium 145 Potassium 3.9 Chloride 119 H Carbon Dioxide 18 L Anion Gap 8 BUN 13 Creatinine 0.8 Creat Clearance w eGFR Random Glucose 115 H Lactic Acid 0.8 Calcium 7.7 L Phosphorus 1.5 L Magnesium 2.5 H Total Bilirubin AST ALT Alkaline Phosphatase Creatine Kinase 185 Creatine Kinase Index 0.7 CK-MB (CK-2) 1.403 Troponin I 0.23 H Total Protein Albumin 12/24/17 05:05 WBC 8.7 D RBC 3.35 L Hgb 10.0 L Hct 30.1 L MCV 89.9 MCH 30.0 MCHC 33.3 RDW 18.4 H Plt Count 119 L MPV 8.3 Neutrophils % 78.0 Lymphocytes % 13.0 D Monocytes % 6.4 Eosinophils % 2.3 D Basophils % 0.3 PT with INR INR Sodium Potassium Chloride Carbon Dioxide Anion Gap BUN Creatinine Creat Clearance w eGFR Random Glucose Lactic Acid Calcium Phosphorus Magnesium Total Bilirubin AST ALT Alkaline Phosphatase Creatine Kinase Creatine Kinase Index CK-MB (CK-2) Troponin I Total Protein Albumin Active Medications Generic Name Dose Route Start Last Admin Trade Name Freq PRN Reason Stop Dose Admin Acetaminophen 650 mg 12/23/17 16:01 12/23/17 22:55 Tylenol - PO 650 mg Q6H PRN Administration FEVER Albuterol Sulfate 1 amp 12/22/17 21:12 12/22/17 21:56 Ventolin 0.083% Nebulizer Soln - NEB 1 amp Q4H PRN Administration SHORT OF BREATH/WHEEZING Chlorhexidine Gluconate 1 applic 12/22/17 22:00 12/23/17 22:28 Hibiclens For Decolonization - TP 1 applic HS RAMBO Administration Desmopressin Acetate 0.4 mg 12/22/17 22:00 12/23/17 23:13 Ddavp - PO 0.4 mg HS RAMBO Administration Norepinephrine Bitartrate 8, 500 mls @ 18.75 mls/hr 12/22/17 13:00 12/23/17 15:44 000 mcg/ Dextrose IV Not Given TITR RAMBO Protocol 5 MCG/MIN Metronidazole 500 mg in 100 mls @ 100 mls/hr 12/22/17 18:00 12/24/17 03:13 Flagyl 500mg Premixed Ivpb - IVPB 100 mls/hr Q8H-IV RAMBO Administration Piperacillin Sod/Tazobactam 50 mls @ 100 mls/hr 12/23/17 09:00 12/24/17 03:13 Sod 3.375 gm/ Dextrose IVPB 100 mls/hr Q8H-IV RAMBO Administration Potassium Chloride/Dextrose/Sod Cl 20 meq in 1,000 mls @ 100 mls/hr 12/24/17 00:30 12/24/17 00:58 D5-1/2ns+20 Meq Kcl - IV 100 mls/hr ASDIR RAMBO Administration Mupirocin 1 applic 12/22/17 22:00 12/23/17 22:28 Bactroban Ointment (For Decolonization) - NS 12/27/17 21:59 1 applic BID RAMBO Administration Ondansetron HCl 4 mg 12/24/17 06:09 Zofran Injection IVPUSH 12/24/17 06:10 ONCE ONE Ropinirole HCl 2 mg 12/24/17 22:00 Requip - PO HS RAMBO Rosuvastatin Calcium 10 mg 12/23/17 22:00 12/23/17 22:28 Crestor - PO 10 mg HS RAMBO Administration Topiramate 75 mg 12/22/17 22:00 12/23/17 22:25 Topamax - PO 75 mg BID RAMBO Administration Microbiology 12/22/17 12:43 Stool Clostridium difficile Antigen (SUZETTE) - Final 12/22/17 12:43 Stool Clostridium difficile Toxin Assay - Final 12/22/17 11:40 Blood - Peripheral Venous Blood Culture - Preliminary NO GROWTH OBTAINED AFTER 24 HOURS, INCUBATION TO CONTINUE FOR 4 DAYS. 12/22/17 11:51 Blood - Peripheral Venous Blood Culture - Preliminary NO GROWTH OBTAINED AFTER 24 HOURS, INCUBATION TO CONTINUE FOR 4 DAYS. 12/22/17 14:45 Nasopharyngeal Swab Influenza Types A,B Antigen (SUZETTE) - Final 12/22/17 14:45 Nasopharyngeal Swab - Final CXR 12/22 - no pathology noted EKG: Sinus tachycardia with LAD. RBBB. STD lead V3. Absent ALEJANDRO. Head CT 12/22 - No pathology noted Ab/pelvis CT 12/22 - IMPRESSION: 4 to 5 mm distal right ureteral calculus with minimal ipsilateral hydronephrosis. 2 mm nonobstructing left renal calculus. Diffuse hepatic steatosis. Status post cholecystectomy. Mild bibasilar discoid atelectasis. Renal/bladder US 12/23 - IMPRESSION: Findings suggestive of a nonobstructing left renal lower pole stone measuring 6 mm Both kidneys appear otherwise unremarkable. Empty urinary bladder and hence it could not be evaluated on this exam Echo 12/24 - ASSESSMENT/PLAN: 72 yo woman w/ pmh of HTN, HLD, CHF, multiple DVTs (on coumadin), neurogenic bladder who presents with AMS since this AM in setting of likely UTI, now found to be in septic shock secondary to UTI. On pressors and admitted to ICU for further management. #Severe Sepsis 2/2 UTI - +UA; 12/26 sepsis criteria met; on pressors; ICU admission; UA + leuk esterase, WBCs - f/u all cultures - levo gtt - vanc/zosyn - ID consulted - trend fever, WBC curve - IVFs - trend Lactate; 2.7 on admission - [place] - Strict Is and Os - Bolus additional 1L #GABRIELE - elevated Cr 1.5 - IVFs - Trend - Bladder/renal US - CT abdomen/pelvis - hold home lasix/NSAIDs - CT Ab/Pelvis to r/o kidney stone #Elevated Trops - 1.19; likely demand ischemia - Repeat in 6 hours - cards consulted - Serial EKGs #AMS - likely secondary to UTI, sepsis; improved on my exam - f/u CT head - trend MS #Hypokalemia - 2.7 on admission - Trend - Replete as needed - KCL IV 40meq w/ D51/2 NS - KCl Riders x2 #diarrhea - flagyl coverage - f/u stool cultures, c diff toxin/culture #neurogenic bladder - c/w ddavp #?migraines - topiramate #Restless leg syndrome - c/w ropirinole #Multiple prior DVTs - Hold coumadin for now - Trend INR #HTN - hold home HTN meds in setting of sepsis, hypotension #HLD - c/w home crestor #CHF - unknown etiology - hold home lasix in setting of hypotension - Cardiology consulted - Dr. Griffith - ECHO #PPX HSQ #FEN IVFs Daily lytes NPO given AMS Dispo - Admit to ICU Plan discussed with attending, Dr. Cherie Alexis, PGY1
[2017-12-24 06:17] LABS: INR 1.74 (0.82-1.09); PROTHROMBIN TIME (PATIENT) 19.7 SEC (9.98-11.88)
[2017-12-24 06:25] LABS: ALBUMIN 2.3 g/dl (3.4-5.0); ANION GAP 6 (8-16); BLOOD UREA NITROGEN 12 mg/dL (7-18); CALCIUM 7.5 mg/dL (8.5-10.1); CHLORIDE 118 mmol/L (98-107); CO2 20 mmol/L (21-32); GLUCOSE,RANDOM 134 mg/dL (74-106); MAGNESIUM 2.4 mg/dL (1.8-2.4); POTASSIUM 4.4 mmol/L (3.5-5.1); SODIUM 144 mmol/L (136-145)
[2017-12-24 06:30] LABS: ALK PHOS 44 U/L (45-117); BILIRUBIN,TOTAL 0.2 mg/dL (0.2-1.0); CREATININE 0.7 mg/dL (0.55-1.02); PHOSPHOROUS 2.7 mg/dL (2.5-4.9); SGOT/AST 18 U/L (15-37); SGPT/ALT 20 U/L (12-78); TOT PROT 4.7 g/dl (6.4-8.2)
--- NOTE | 2017-12-24 07:14 | PN ---
Progress Note, Physician Chief Complaint: ID ICU follow up for this 72 year old female admitted with fever an sepsis to ICU suspected urinary tract source. Seen by urology Dr Mack plans for kidney stent placement Report some diarrhea since admission and had episode of vomiting this am Pip tazobactam and metronidazole NO fevers originally 104 on admission - Current Medication List Current Medications: Active Medications Acetaminophen (Tylenol -) 650 mg PO Q6H PRN PRN Reason: FEVER Last Admin: 12/23/17 22:55 Dose: 650 mg Albuterol Sulfate (Ventolin 0.083% Nebulizer Soln -) 1 amp NEB Q4H PRN PRN Reason: SHORT OF BREATH/WHEEZING Last Admin: 12/22/17 21:56 Dose: 1 amp Chlorhexidine Gluconate (Hibiclens For Decolonization -) 1 applic TP HS [facility] Last Admin: 12/23/17 22:28 Dose: 1 applic Desmopressin Acetate (Ddavp -) 0.4 mg PO HS [facility] Last Admin: 12/23/17 23:13 Dose: 0.4 mg Norepinephrine Bitartrate 8, (000 mcg/ Dextrose) 500 mls @ 18.75 mls/hr IV TITR [facility]; 5 MCG/MIN PRN Reason: Protocol Last Admin: 12/23/17 15:44 Dose: Not Given Metronidazole (Flagyl 500mg Premixed Ivpb -) 500 mg in 100 mls @ 100 mls/hr IVPB Q8H-IV [facility] Last Admin: 12/24/17 03:13 Dose: 100 mls/hr Piperacillin Sod/Tazobactam (Sod 3.375 gm/ Dextrose) 50 mls @ 100 mls/hr IVPB Q8H-IV [facility] Last Admin: 12/24/17 03:13 Dose: 100 mls/hr Potassium Chloride/Dextrose/Sod Cl (D5-1/2ns+20 Meq Kcl -) 20 meq in 1,000 mls @ 100 mls/hr IV ASDIR [facility] Last Admin: 12/24/17 00:58 Dose: 100 mls/hr Mupirocin (Bactroban Ointment (For Decolonization) -) 1 applic NS BID [facility] Stop: 12/27/17 21:59 Last Admin: 12/23/17 22:28 Dose: 1 applic Ropinirole HCl (Requip -) 2 mg PO HS [facility] Rosuvastatin Calcium (Crestor -) 10 mg PO HS [facility] Last Admin: 12/23/17 22:28 Dose: 10 mg Topiramate (Topamax -) 75 mg PO BID [facility] Last Admin: 12/23/17 22:25 Dose: 75 mg - Objective Vital Signs: Vital Signs Temperature 98 F 12/24/17 06:00 Pulse Rate 78 12/24/17 06:00 Respiratory Rate 21 12/24/17 06:00 Blood Pressure 120/78 12/24/17 06:00 O2 Sat by Pulse Oximetry (%) 100 12/23/17 20:42 Constitutional: Yes: Well Nourished, No Distress HENT: Yes: WNL, Atraumatic Neck: Yes: WNL, Supple Cardiovascular: Yes: Regular Rate and Rhythm, S1, S2. No: Gallop, Murmur Respiratory: Yes: WNL, Regular, CTA Bilaterally. No: Rales, Rhonchi Gastrointestinal: Yes: WNL, Normal Bowel Sounds, Soft. No: Hepatomegaly, Splenomegaly, Tenderness, Tenderness, Rebound Extremities: No: Cold, Cool, Cyanosis Edema: No Labs: CBC, BMP 12/24/17 05:05 12/24/17 05:05 INR, PTT INR 1.74 (0.82-1.09) H 12/24/17 05:05 Problem List - Problems (1) Sepsis Code(s): A41.9 - SEPSIS, UNSPECIFIED ORGANISM (2) UTI (urinary tract infection) Code(s): N39.0 - URINARY TRACT INFECTION, SITE NOT SPECIFIED (3) Ureteral calculus Code(s): N20.1 - CALCULUS OF URETER Assessment/Plan Microbiology 12/22/17 14:45 Nasopharyngeal Swab Influenza Types A,B Antigen (SUZETTE) - Final 12/22/17 14:45 Nasopharyngeal Swab - Final 12/22/17 12:43 Stool Clostridium difficile Antigen (SUZETTE) - Final 12/22/17 12:43 Stool Clostridium difficile Toxin Assay - Final 12/22/17 11:51 Blood - Peripheral Venous Blood Culture - Preliminary NO GROWTH OBTAINED AFTER 24 HOURS, INCUBATION TO CONTINUE FOR 4 DAYS. 12/22/17 11:40 Blood - Peripheral Venous Blood Culture - Preliminary NO GROWTH OBTAINED AFTER 24 HOURS, INCUBATION TO CONTINUE FOR 4 DAYS. Laboratory Tests 12/22/17 12/22/17 12/22/17 11:51 11:51 12:44 WBC 13.9 H D Hgb Hct Plt Count INR BUN Creatinine Lactic Acid 2.7 H* Magnesium Total Bilirubin AST ALT Alkaline Phosphatase Ur Leukocyte Esterase 2+ H Urine Bacteria Many 12/22/17 12/23/17 12/23/17 20:45 05:10 05:10 WBC 16.5 H Hgb Hct Plt Count INR BUN Creatinine Lactic Acid 1.6 0.8 Magnesium Total Bilirubin AST ALT Alkaline Phosphatase Ur Leukocyte Esterase Urine Bacteria 12/24/17 12/24/17 12/24/17 05:05 05:05 05:05 WBC 8.7 D Hgb 10.0 L Hct 30.1 L Plt Count 119 L INR 1.74 H BUN 12 Creatinine 0.7 Lactic Acid Magnesium 2.4 Total Bilirubin 0.2 AST 18 ALT 20 Alkaline Phosphatase 44 L Ur Leukocyte Esterase Urine Bacteria Assessment Sepsis syndrome secondary UTI Urinary tract infection Renal calculi with hydronephrosis Diarrhea ? sepsis related Thrombocytopenia from sepsis Plan Continue Zosyn Stop Flagyl For cysto and stenting today Critical care time spent today 35 minutes Jos BUTTS
[2017-12-24] MEDS ORDERED: PT OWN MED DRAWER 7, Y5N ONE ×3 (09:03→21:30)
[2017-12-24] MEDS ORDERED: DEXTROSE 5%-0.45% SALINE 1,000 ML IV SCH (09:30)
[2017-12-24] MEDS: TOPIRAMATE 25 MG TABLET (FP) PO SCH ×2 (11:18→22:05)
[2017-12-24] MEDS: ACETAMINOPHEN 325 MG TABLET (FP) PO PRN (11:53)
[2017-12-24] MEDS: MUPIROCIN 2% TOPICAL OINTMENT FOR DECOLONIZATION NS SCH ×2 (11:57→22:04)
--- NOTE | 2017-12-24 12:24 | PN ---
Teaching Attending Note Name of Resident: Beck Stoddard ATTENDING PHYSICIAN STATEMENT I saw and evaluated the patient. I reviewed the resident's note and discussed the case with the resident. I agree with the resident's findings and plan as documented. SUBJECTIVE: Patient seen and examined in the ICU. Remains off pressors. Noted Ventricular Bigeminy and 4 sec pause overnight. (?) Related to possible OSAS. Denies CP or SOB. Intake & Output 12/21/17 12/22/17 12/23/17 12/24/17 23:59 23:59 23:59 23:59 Intake Total 3500 4050 1200 Output Total 150 3450 500 Balance 3350 600 700 Weight 285 lb 283 lb 11.2 oz 284 lb 9.868 oz Last Vital Signs Temp Pulse Resp BP Pulse Ox 98.3 F 81 18 140/75 100 12/24/17 10:00 12/24/17 10:00 12/24/17 10:00 12/24/17 10:00 12/24/17 09:00 Active Medications Acetaminophen (Tylenol -) 650 mg PO Q6H PRN PRN Reason: FEVER Last Admin: 12/24/17 11:53 Dose: 650 mg Albuterol Sulfate (Ventolin 0.083% Nebulizer Soln -) 1 amp NEB Q4H PRN PRN Reason: SHORT OF BREATH/WHEEZING Last Admin: 12/22/17 21:56 Dose: 1 amp Chlorhexidine Gluconate (Hibiclens For Decolonization -) 1 applic TP HS [facility] Last Admin: 12/23/17 22:28 Dose: 1 applic Desmopressin Acetate (Ddavp -) 0.4 mg PO HS [facility] Last Admin: 12/23/17 23:13 Dose: 0.4 mg Norepinephrine Bitartrate 8, (000 mcg/ Dextrose) 500 mls @ 18.75 mls/hr IV TITR [facility]; 5 MCG/MIN PRN Reason: Protocol Last Admin: 12/23/17 15:44 Dose: Not Given Piperacillin Sod/Tazobactam (Sod 3.375 gm/ Dextrose) 50 mls @ 100 mls/hr IVPB Q8H-IV [facility] Last Admin: 12/24/17 03:13 Dose: 100 mls/hr Dextrose/Sodium Chloride (D5-1/2ns -) 1,000 mls @ 100 mls/hr IV ASDIR [facility] Last Admin: 12/24/17 11:56 Dose: 100 mls/hr Mupirocin (Bactroban Ointment (For Decolonization) -) 1 applic NS BID [facility] Stop: 12/27/17 21:59 Last Admin: 12/24/17 11:57 Dose: 1 applic Ropinirole HCl (Requip -) 2 mg PO [facility] Rosuvastatin Calcium (Crestor -) 10 mg PO HS [facility] Last Admin: 12/23/17 22:28 Dose: 10 mg Topiramate (Topamax -) 75 mg PO BID [facility] Last Admin: 12/24/17 11:18 Dose: Not Given Gen: Awake, alert Heart: RRR Lung: decreased breath sounds at the bases Abd: soft, nontender Ext: no edema Laboratory Results - last 24 hr 12/23/17 12/24/17 12/24/17 23:00 05:05 05:05 WBC 8.7 D RBC 3.35 L Hgb 10.0 L Hct 30.1 L MCV 89.9 MCH 30.0 MCHC 33.3 RDW 18.4 H Plt Count 119 L MPV 8.3 Neutrophils % 78.0 Lymphocytes % 13.0 D Monocytes % 6.4 Eosinophils % 2.3 D Basophils % 0.3 PT with INR INR Sodium 145 144 Potassium 3.9 4.4 Chloride 119 H 118 H Carbon Dioxide 18 L 20 L Anion Gap 8 6 L BUN 13 12 Creatinine 0.8 0.7 Creat Clearance w eGFR > 60 Random Glucose 115 H 134 H Calcium 7.7 L 7.5 L Phosphorus 1.5 L 2.7 Magnesium 2.5 H 2.4 Total Bilirubin 0.2 AST 18 ALT 20 Alkaline Phosphatase 44 L Total Protein 4.7 L Albumin 2.3 L 12/24/17 05:05 WBC RBC Hgb Hct MCV MCH MCHC RDW Plt Count MPV Neutrophils % Lymphocytes % Monocytes % Eosinophils % Basophils % PT with INR 19.70 H INR 1.74 H Sodium Potassium Chloride Carbon Dioxide Anion Gap BUN Creatinine Creat Clearance w eGFR Random Glucose Calcium Phosphorus Magnesium Total Bilirubin AST ALT Alkaline Phosphatase Total Protein Albumin Problem List - Problems (1) UTI (urinary tract infection) Code(s): N39.0 - URINARY TRACT INFECTION, SITE NOT SPECIFIED (2) Septic shock Code(s): A41.9 - SEPSIS, UNSPECIFIED ORGANISM; R65.21 - SEVERE SEPSIS WITH SEPTIC SHOCK (3) GABRIELE (acute kidney injury) Code(s): N17.9 - ACUTE KIDNEY FAILURE, UNSPECIFIED (4) Hypokalemia Code(s): E87.6 - HYPOKALEMIA (5) Lactic acidosis Code(s): E87.2 - ACIDOSIS (6) CHF (congestive heart failure) Code(s): I50.9 - HEART FAILURE, UNSPECIFIED (7) HLD (hyperlipidemia) Code(s): E78.5 - HYPERLIPIDEMIA, UNSPECIFIED Qualifiers: Hyperlipidemia type: other hyperlipidemia Qualified Code(s): E78.4 - Other hyperlipidemia (8) History of DVT (deep vein thrombosis) Code(s): Z86.718 - PERSONAL HISTORY OF OTHER VENOUS THROMBOSIS AND EMBOLISM (9) Neurogenic dysfunction of the urinary bladder Code(s): N31.9 - NEUROMUSCULAR DYSFUNCTION OF BLADDER, UNSPECIFIED A/P UTI Septic Shock Acute Kidney Injury Nephrolithiasis Lactic Acidosis +Troponins likely Demand Ischemia Asthma DM Hyperlipidemia h/o DVT Morbid Obesity Suspected OSAS - Sleep screen - IV antibiotics - IVF - monitoring off pressors - replete lytes - continue anticoagulation - inhaled bronchodilators - PO as tolerated - Cardiac Telemetry monitoring Dr Valverde critical care time spent in reviewing chart, evaluating patient and formulating plan 35 min
--- NOTE | 2017-12-24 12:32 | PN ---
Physical Exam: SUBJECTIVE: Ms. Betts reports she has been experiencing some nausea and vomiting overnight. OBJECTIVE: Episode of Ventricular Bigeminy and 4 second pause noted overnight - suspect related to sleep apnea 2/2 body habitus. Primary team concerned and would like to hold off on Cystoscopy / R JJ stent accordingly. Vital Signs Period Temp Pulse Resp BP Sys/Dennis Pulse Ox Last 24 Hr 98 F-98.9 F 75-110 18-22 112-144/59-99 100-100 GENERAL: The patient is awake, alert, and fully oriented, in no acute distress. HEAD: Normal with no signs of trauma. EYES: PERRL, extraocular movements intact, sclera anicteric, conjunctiva clear. No ptosis. ENT: Ears normal, nares patent, oropharynx clear without exudates, moist mucous membranes. NECK: Trachea midline, full range of motion, supple. LUNGS: Breath sounds equal, clear to auscultation bilaterally, no wheezes, no crackles, no accessory muscle use. HEART: Regular rate and rhythm, S1, S2 without murmur, rub or gallop. ABDOMEN: +Patient TTP along left CVA. Soft, nondistended, normoactive bowel sounds, no guarding, no rebound, no hepatosplenomegaly, no masses. EXTREMITIES: 2+ pulses, warm, well-perfused, no edema. NEUROLOGICAL: Cranial nerves II through XII grossly intact. Normal speech, gait not observed. PSYCH: Normal mood, normal affect. SKIN: Warm, dry, normal turgor, no rashes or lesions noted Laboratory Results - last 24 hr 12/23/17 12/24/17 12/24/17 23:00 05:05 05:05 WBC 8.7 D RBC 3.35 L Hgb 10.0 L Hct 30.1 L MCV 89.9 MCH 30.0 MCHC 33.3 RDW 18.4 H Plt Count 119 L MPV 8.3 Neutrophils % 78.0 Lymphocytes % 13.0 D Monocytes % 6.4 Eosinophils % 2.3 D Basophils % 0.3 PT with INR INR Sodium 145 144 Potassium 3.9 4.4 Chloride 119 H 118 H Carbon Dioxide 18 L 20 L Anion Gap 8 6 L BUN 13 12 Creatinine 0.8 0.7 Creat Clearance w eGFR > 60 Random Glucose 115 H 134 H Calcium 7.7 L 7.5 L Phosphorus 1.5 L 2.7 Magnesium 2.5 H 2.4 Total Bilirubin 0.2 AST 18 ALT 20 Alkaline Phosphatase 44 L Total Protein 4.7 L Albumin 2.3 L 12/24/17 05:05 WBC RBC Hgb Hct MCV MCH MCHC RDW Plt Count MPV Neutrophils % Lymphocytes % Monocytes % Eosinophils % Basophils % PT with INR 19.70 H INR 1.74 H Sodium Potassium Chloride Carbon Dioxide Anion Gap BUN Creatinine Creat Clearance w eGFR Random Glucose Calcium Phosphorus Magnesium Total Bilirubin AST ALT Alkaline Phosphatase Total Protein Albumin Active Medications Generic Name Dose Route Start Last Admin Trade Name Freq PRN Reason Stop Dose Admin Acetaminophen 650 mg 12/23/17 16:01 12/24/17 11:53 Tylenol - PO 650 mg Q6H PRN Administration FEVER Albuterol Sulfate 1 amp 12/22/17 21:12 12/22/17 21:56 Ventolin 0.083% Nebulizer Soln - NEB 1 amp Q4H PRN Administration SHORT OF BREATH/WHEEZING Chlorhexidine Gluconate 1 applic 12/22/17 22:00 12/23/17 22:28 Hibiclens For Decolonization - TP 1 applic HS [facility] Administration Desmopressin Acetate 0.4 mg 12/22/17 22:00 12/23/17 23:13 Ddavp - PO 0.4 mg HS [facility] Administration Norepinephrine Bitartrate 8, 500 mls @ 18.75 mls/hr 12/22/17 13:00 12/23/17 15:44 000 mcg/ Dextrose IV Not Given TITR [facility] Protocol 5 MCG/MIN Piperacillin Sod/Tazobactam 50 mls @ 100 mls/hr 12/23/17 09:00 12/24/17 03:13 Sod 3.375 gm/ Dextrose IVPB 100 mls/hr Q8H-IV [facility] Administration Dextrose/Sodium Chloride 1,000 mls @ 100 mls/hr 12/24/17 09:30 12/24/17 11:56 D5-1/2ns - IV 100 mls/hr ASDIR [facility] Administration Mupirocin 1 applic 12/22/17 22:00 12/24/17 11:57 Bactroban Ointment (For Decolonization) - NS 12/27/17 21:59 1 applic BID [facility] Administration Ropinirole HCl 2 mg 12/24/17 22:00 Requip - PO HS [facility] Rosuvastatin Calcium 10 mg 12/23/17 22:00 12/23/17 22:28 Crestor - PO 10 mg HS [facility] Administration Topiramate 75 mg 12/22/17 22:00 12/24/17 11:18 Topamax - PO Not Given BID [facility] ASSESSMENT/PLAN: Ms. Betts is a 72 yo female w/ pmh of HTN, NIDDM, HLD, CHF, DVT's (on coumadin ), morbid obesity, and neurogenic bladder who presented to ER with Urosepsis and is currently pending cystoscopy with stent placement for observed 5mm R ureteral stent. UTI / Sepsis - Zosyn day 2 - ID consulted - Levo gtt off - Lactate / WBC wnl, continue to trend Bigeminy / Rhythm pause - Cardiology consulted - Pacers to bedside - Would like patient transferred to [facility] for further workup / pacemaker implantation as necessary when possible. GABRIELE - 5% NS - Trend BUN/Cr (12/0.7 today) - Consulted for kidney stone - Cystoscopy / stent delayed indefinitely in face of cardiac changes as patient currently asymptomatic - Urology consulted AMS - Head CT normal - AMS resolved Diarrhea - Stool cultures for c diff Neurogenic bladder - DDAVP DVTs - Heparin gtt - holding coumadin for surgery PPX - Heparin gtt as above FEN - 5% NS - replete electrolytes prn - diet as tolerated; NPO at midnight Disposition - Transfer to [facility] for possible pacemaker implantation as no plans for cystoscopy pending. Visit type - Emergency Visit Emergency Visit: Yes ED Registration Date: 12/22/17 Care time: The patient presented to the Emergency Department on the above date and was hospitalized for further evaluation of their emergent condition. - New Patient This patient is new to me today: Yes Date on this admission: 12/25/17 - Critical Care Critical Care patient: Yes Total Critical Care Time (in minutes): 36 Critical Care Statement: The care of this patient involved high complexity decision making to prevent further life threatening deterioration of the patient 's condition and/or to evaluate & treat vital organ system(s) failure or risk of failure.
--- NOTE | 2017-12-24 13:13 | PN ---
Teaching Attending Note Name of Resident: Ryan Alexis ATTENDING PHYSICIAN STATEMENT I saw and evaluated the patient. I reviewed the resident's note and discussed the case with the resident. I agree with the resident's findings and plan as documented with exceptions mentioned below. SUBJECTIVE: Patient seen and examined. Vomiting earlier today, still with diarhea. left sided abdominal pain improved. Reports around 6 AM today, had some chest pressure but no vomiting or try to strain at stool. No dyspnea, palpitations, chest pain currently. OBJECTIVE: Vital Signs Period Temp Pulse Resp BP Sys/Dennis Pulse Ox Last 24 Hr 98 F-98.9 F 75-98 18-22 112-144/59-99 100-100 Intake & Output 12/21/17 12/22/17 12/23/17 12/24/17 23:59 23:59 23:59 23:59 Intake Total 3500 4050 1200 Output Total 150 3450 500 Balance 3350 600 700 Weight 285 lb 283 lb 11.2 oz 284 lb 9.868 oz General: lying in bed in no acute distress Chest: limited exam by body habitus, no rales or wheezing Abdomen: soft, obese, mininal LLQ tenderness in lateral region, markedly improved, no voluntary or involuntary guarding or rigidity, no suprapubic tenderness, Extremities: no edema Home Medication List Medication Instructions Recorded Confirmed Type Desmopressin Acetate [Ddavp -] 0.4 mg PO HS 12/22/17 12/22/17 History Fluticasone Prop 0.05% Nasal 1 spray NS HS 12/22/17 12/22/17 History [Flonase -] Fluticasone Propionate [Flovent 250 mcg IH DAILY 12/22/17 12/22/17 History Diskus] Folic Acid - 3 mg PO DAILY 12/22/17 12/22/17 History Furosemide [Lasix] 20 mg PO DAILY 12/22/17 12/22/17 History Ipratropium/Albuterol Sulfate 4 gm IH DAILY 12/22/17 12/22/17 History [Combivent Respimat Inhal Erbacon] Meloxicam 15 mg PO DAILY 12/22/17 12/22/17 History Multivit-Min/FA/Lycopen/Lutein 1 each PO DAILY 12/22/17 12/22/17 History [Adults 50+ Multivitamin Tablet] Ropinirole HCl 2 mg PO HS 12/22/17 12/22/17 History Rosuvastatin [Crestor -] 10 mg PO DAILY 12/22/17 12/22/17 History Topiramate 75 mg PO BID 12/22/17 12/22/17 History Warfarin Sodium 5 mg PO DAILY 12/22/17 12/22/17 History Active Medications Generic Name Dose Route Start Last Admin Trade Name Freq PRN Reason Stop Dose Admin Acetaminophen 650 mg 12/23/17 16:01 12/24/17 11:53 Tylenol - PO 650 mg Q6H PRN Administration FEVER Albuterol Sulfate 1 amp 12/22/17 21:12 12/22/17 21:56 Ventolin 0.083% Nebulizer Soln - NEB 1 amp Q4H PRN Administration SHORT OF BREATH/WHEEZING Chlorhexidine Gluconate 1 applic 12/22/17 22:00 12/23/17 22:28 Hibiclens For Decolonization - TP 1 applic HS [facility] Administration Desmopressin Acetate 0.4 mg 12/22/17 22:00 12/23/17 23:13 Ddavp - PO 0.4 mg HS [facility] Administration Norepinephrine Bitartrate 8, 500 mls @ 18.75 mls/hr 12/22/17 13:00 12/23/17 15:44 000 mcg/ Dextrose IV Not Given TITR [facility] Protocol 5 MCG/MIN Piperacillin Sod/Tazobactam 50 mls @ 100 mls/hr 12/23/17 09:00 12/24/17 03:13 Sod 3.375 gm/ Dextrose IVPB 100 mls/hr Q8H-IV [facility] Administration Dextrose/Sodium Chloride 1,000 mls @ 100 mls/hr 12/24/17 09:30 12/24/17 11:56 D5-1/2ns - IV 100 mls/hr ASDIR [facility] Administration Mupirocin 1 applic 12/22/17 22:00 12/24/17 11:57 Bactroban Ointment (For Decolonization) - NS 12/27/17 21:59 1 applic BID [facility] Administration Ropinirole HCl 2 mg 12/24/17 22:00 Requip - PO HS [facility] Rosuvastatin Calcium 10 mg 12/23/17 22:00 12/23/17 22:28 Crestor - PO 10 mg HS [facility] Administration Topiramate 75 mg 12/22/17 22:00 04/02/18 11:18 Topamax - PO Not Given BID [facility] Laboratory Results - last 24 hr 12/23/17 12/24/17 12/24/17 23:00 05:05 05:05 WBC 8.7 D RBC 3.35 L Hgb 10.0 L Hct 30.1 L MCV 89.9 MCH 30.0 MCHC 33.3 RDW 18.4 H Plt Count 119 L MPV 8.3 Neutrophils % 78.0 Lymphocytes % 13.0 D Monocytes % 6.4 Eosinophils % 2.3 D Basophils % 0.3 PT with INR INR Sodium 145 144 Potassium 3.9 4.4 Chloride 119 H 118 H Carbon Dioxide 18 L 20 L Anion Gap 8 6 L BUN 13 12 Creatinine 0.8 0.7 Creat Clearance w eGFR > 60 Random Glucose 115 H 134 H Calcium 7.7 L 7.5 L Phosphorus 1.5 L 2.7 Magnesium 2.5 H 2.4 Total Bilirubin 0.2 AST 18 ALT 20 Alkaline Phosphatase 44 L Total Protein 4.7 L Albumin 2.3 L 12/24/17 05:05 WBC RBC Hgb Hct MCV MCH MCHC RDW Plt Count MPV Neutrophils % Lymphocytes % Monocytes % Eosinophils % Basophils % PT with INR 19.70 H INR 1.74 H Sodium Potassium Chloride Carbon Dioxide Anion Gap BUN Creatinine Creat Clearance w eGFR Random Glucose Calcium Phosphorus Magnesium Total Bilirubin AST ALT Alkaline Phosphatase Total Protein Albumin Microbiology 12/22/17 11:51 Blood - Peripheral Venous Blood Culture - Preliminary NO GROWTH OBTAINED AFTER 48 HOURS, INCUBATION TO CONTINUE FOR 3 DAYS. 12/22/17 11:40 Blood - Peripheral Venous Blood Culture - Preliminary NO GROWTH OBTAINED AFTER 48 HOURS, INCUBATION TO CONTINUE FOR 3 DAYS. 12/22/17 12:43 Stool Clostridium difficile Antigen (SUZETTE) - Final 12/22/17 12:43 Stool Clostridium difficile Toxin Assay - Final 12/22/17 12:43 Stool Salmonella/Shigella Culture - Preliminary NO ENTERIC PATHOGENS, 24 HOURS, ON PRIMARY PLATES 12/22/17 12:43 Stool Campylobacter Culture - Preliminary NO ENTERIC PATHOGENS, 24 HOURS, ON PRIMARY PLATES 12/22/17 12:43 Stool Yersinia Culture - Preliminary NO ENTERIC PATHOGENS, 24 HOURS, ON PRIMARY PLATES 12/22/17 12:43 Stool Vibrio Culture - Final NO GROWTH OF VIBRIO SPECIES OBTAINED 12/22/17 12:43 Stool Escherichia coli 0157 Culture - Final NO GROWTH OF E COLI 0157 OBTAINED 12/22/17 12:44 Urine - Urine Clean Catch Urine Culture - Preliminary Lactose Fermenting Neg Bacilli 12/22/17 14:45 Nasopharyngeal Swab Influenza Types A,B Antigen (SUZETTE) - Final 12/22/17 14:45 Nasopharyngeal Swab - Final Telemetry - ventricular bigeminy earlier, 6 sec sinoatrial block with no conducted P waves 6 AM (patient recall chest pressure but no dizziness or LOC). ASSESSMENT AND PLAN: 72 yof with PMhx of DVT on coumadin, neurogenic bladder with incontinence/ retention, admitted with septic shock secondary to UTI, diarrhea, and abdominal pain.; -Sinuoatrial block with no conducted P waves 6 sec, ?afib with pause/ Ventricular bigeminy -Septic shock, likely secondary to complicated UTI with obstructive uropathy/ Right ureteral stone with hydroureteronephrosis -Diarrhea/nausea, C diffile ruled out -Severe systolic cardiomypathy (EF 30-35%)/Grade II diastolic dysfunction. -H/o DVT on coumadin -GABRIELE likely hypovolumia/sepsis withretention/obstructive process, improved -Elevated Troponin, suspicious for demand type II NSTEMI from above, no concerning EKG changes or chest symptoms -Restless pain syndrome Plan: Telemetry strip reviewed, patient reports chest pressure but no other symptoms at the time. However nursing note reports episode of vomiting around the same time. No clear history to suggest vasovagal. No meds contributory. Central line appropriately placed, unlikely to contribute to arrhythmia. Discussed with Dr. Marsh, strips reviewed, recommends holding off surgical intervention atleast 24 hours. Monitor for now, follow up additional recs Troponin trended down, no EKG or Chest pain concerns currently. Discussed with Dr. Mack, given resolved sepsis, normal WBC and afebrile, will hold off on surgical intervention for now (was planned for cystoscopy/Right JJ stent insertion). Resume diet. Zosyn day 2, ID input appreciated, Off pressors, Urine cultures noted. Flagyl d/ kaila. D/c IVF 2D echo noted, discuss with outpatient sparker and patcher Dr. Hua and retrieve records, if current findings new. Monitor volume status closely. Resume coumadin. Stool C difficile neg. GI input if persistent diarrhea/Vomitting over next 24- 48 hours. Continue mcfarlane. hold nephrotoxic medications. Hold lasix/NSAIDs, monitor renal function. continue desmopressin, ropinirole, topiramate. DVTPPX as above, GIPPX on antibiotics Plan discussed with ICU, Dr. Marsh, patient in detail, all questions answered. Total critical care spent 40 min.
--- NOTE | 2017-12-24 13:48 | PN ---
Progress Note, Physician History of Present Illness: 72 yo woman with h/o HTN, NIDDM, HLD, CHF, DVT's (on Coumadin), Morbid obesity, and neurogenic bladder BIBA w/ AMS. EMS reports pt. with BS~116, hypotensive SBP ~90s, and responsive, but somonolent. When EMS arrived, pt. was lying on floor mat in urine and feces.Per pt. at bedside she woke up this morning lethargic and confused. When he asked her questions, she responded with garbled speech and sounds. Patient was complaining of chills and with cold intolerance and rigors this AM. Pt. with urine incontinence and fecal incontinence at baseline. Denies hematuria, dysuria, or flank pain. report visit to urgent care yesterday evening and pt. sent out with Cefixime, but did not fill rx.She follows with Dr. Zelaya [facility], and was scheduled to see him oupt. but were unable to. see him in office. Denies CP, SOB, cough, abdominal pain, diarrhea, constipation, lightheadedness, weakness, sensory changes.Denies h/o CVA/TIA. - Current Medication List Current Medications: Active Medications Acetaminophen (Tylenol -) 650 mg PO Q6H PRN PRN Reason: FEVER Last Admin: 12/24/17 11:53 Dose: 650 mg Albuterol Sulfate (Ventolin 0.083% Nebulizer Soln -) 1 amp NEB Q4H PRN PRN Reason: SHORT OF BREATH/WHEEZING Last Admin: 12/22/17 21:56 Dose: 1 amp Chlorhexidine Gluconate (Hibiclens For Decolonization -) 1 applic TP HS RAMBO Last Admin: 12/23/17 22:28 Dose: 1 applic Desmopressin Acetate (Ddavp -) 0.4 mg PO HS RAMBO Last Admin: 12/23/17 23:13 Dose: 0.4 mg Heparin Sodium (Porcine) (Heparin -) 1,000 unit IVPUSH PRN PRN PRN Reason: Heparin Heparin Sodium (Porcine) (Heparin -) 5,000 unit IVPUSH PRN PRN PRN Reason: Heparin Norepinephrine Bitartrate 8, (000 mcg/ Dextrose) 500 mls @ 18.75 mls/hr IV TITR RAMBO; 5 MCG/MIN PRN Reason: Protocol Last Admin: 12/23/17 15:44 Dose: Not Given Piperacillin Sod/Tazobactam (Sod 3.375 gm/ Dextrose) 50 mls @ 100 mls/hr IVPB Q8H-IV RAMBO Last Admin: 12/24/17 03:13 Dose: 100 mls/hr HEPARIN SOD,PORK IN 0.45% NACL (Heparin-1/2ns 25,000 Units/500) 25,000 units in 500 mls @ 20 mls/hr IVPB TITR RAMBO; 1,000 UNITS/HR PRN Reason: Protocol Mupirocin (Bactroban Ointment (For Decolonization) -) 1 applic NS BID RAMBO Stop: 12/27/17 21:59 Last Admin: 12/24/17 11:57 Dose: 1 applic Ropinirole HCl (Requip -) 2 mg PO HS RAMBO Rosuvastatin Calcium (Crestor -) 10 mg PO HS RAMBO Last Admin: 12/23/17 22:28 Dose: 10 mg Topiramate (Topamax -) 75 mg PO BID RAMBO Last Admin: 12/24/17 11:18 Dose: Not Given - Objective Vital Signs: Vital Signs Temperature 98.3 F 12/24/17 10:00 Pulse Rate 79 12/24/17 12:00 Respiratory Rate 19 12/24/17 12:00 Blood Pressure 142/80 12/24/17 12:00 O2 Sat by Pulse Oximetry (%) 100 12/24/17 09:00 Eyes: Yes: WNL, Conjunctiva Clear, EOM Intact HENT: Yes: WNL, Atraumatic, Normocephalic Neck: Yes: WNL, Supple, Trachea Midline Cardiovascular: Yes: WNL, Regular Rate and Rhythm Respiratory: Yes: WNL, Regular, CTA Bilaterally Gastrointestinal: Yes: WNL, Normal Bowel Sounds Genitourinary: Yes: WNL Musculoskeletal: Yes: WNL Extremities: Yes: WNL Edema: No Integumentary: Yes: WNL Neurological: Yes: WNL, Alert, Oriented ...Motor Strength: WNL Psychiatric: Yes: WNL Labs: CBC, BMP 12/24/17 05:05 12/24/17 05:05 INR, PTT INR 1.74 (0.82-1.09) H 12/24/17 05:05 Assessment/Plan - Problems (1) Sepsis Assessment/Plan: Now off norepinephrine; BP holding. Continue fluids; f/u Is and Os, Hb, electrolytes. UTI On antibiotics per ID. ad Code(s): A41.9 - SEPSIS, UNSPECIFIED ORGANISM (2) UTI (urinary tract infection) Code(s): N39.0 - URINARY TRACT INFECTION, SITE NOT SPECIFIED (3) HLD (hyperlipidemia) Code(s): E78.5 - HYPERLIPIDEMIA, UNSPECIFIED Qualifiers: Hyperlipidemia type: other hyperlipidemia Qualified Code(s): E78.4 - Other hyperlipidemia (4) History of DVT (deep vein thrombosis) Assessment/Plan: keep INR 2-3 on warfarin. F/u hx, prior workup. Code(s): Z86.718 - PERSONAL HISTORY OF OTHER VENOUS THROMBOSIS AND EMBOLISM (5) Morbid obesity Code(s): E66.01 - MORBID (SEVERE) OBESITY DUE TO EXCESS CALORIES (6) Tell cardiac risk >20% in next 10 years Assessment/Plan: f/u prior cardiac workup. ECHO for LVEF, wall motion, valve status. Code(s): Z91.89 - OT PERSONAL RISK FACTORS, NOT ELSEWHERE CLASSIFIED (7) Hypotension Assessment/Plan: continue fluids. On antibiotics per ID. Code(s): I95.9 - HYPOTENSION, UNSPECIFIED (8) Hypophosphatemia Assessment/Plan: repleted; f/u all electrolytes. Code(s): E83.39 - OTHER DISORDERS OF PHOSPHORUS METABOLISM (9) Hypomagnesemia Assessment/Plan: repleted; f/u all electrolytes. Code(s): E83.42 - HYPOMAGNESEMIA (10) Elevated troponin Assessment/Plan: TNI 1.19-->0.58; CK/MB relative index not elevated. TNI elevation likely 2ndary to sepsis; however, multiple CAD risks, which should engender coronary artery evaluation, once stable, if not done recently. Code(s): R74.8 - ABNORMAL LEVELS OF OTHER SERUM ENZYMES low ef 30 % on ECHO 7 s pause - high degree avb - will place transcutaneus external pacemaker on standby. d/w dr. Bah who will transfer patient to [facility] for c. cath and PPM d/w dr. Bah / dr. Cortes / dr Deleon and patient family - -daughter. Assessment/Plan cc time spent 75 minutes.
[2017-12-24] MEDS: HEPARIN SOD,PORK IN 0.45% NACL 25,000 UNITS/500 ML INFUS.BAG IVPB SCH (15:55)
[2017-12-24] MEDS: HEPARIN NA (PORCINE) 5,000 UNITS/ML 1ML VIAL IVPUSH PRN (15:56)
[2017-12-24] MEDS: NOREPINEPHRINE BITARTRATE 8,000 MCG in DEXTROSE 5%-WATER - 492 ML IV SCH (16:17)
[2017-12-24] MEDS: WARFARIN NA 5 MG TABLET (UD) PO SCH (17:19)
--- NOTE | 2017-12-24 17:53 | DS ---
Physical Exam: SUBJECTIVE: Patient seen and examined - No major overnight events. Afebrile, VSS. off pressors. frequent BMs still. Martina to see in AM for possible cysto/renal stenting - Endorsing nausea in AM, 2x NBNB vomiting; NPO overnight; No f/c; still with persistent diarrhea; no cp, cough, ab pain, back pain, lightheadness, villalta, focal neuro deficits - Telemetry notable for 6 second complete heart block with no ventricular response, run of ventricular bigeminy; Seen by cardiology, recommended transfer to tertiary care center for PPM placement and possible LHC. Echo notable for global hypokinesis and EF ~30-35% OBJECTIVE: Vital Signs Intake & Output 12/21/17 12/22/17 12/23/17 12/24/17 23:59 23:59 23:59 23:59 Intake Total 3500 4050 1200 Output Total 150 3450 1100 Balance 3350 600 100 Weight 129.274 kg 128.684 kg 129.1 kg Period Temp Pulse Resp BP Sys/Dennis Pulse Ox Last 24 Hr 98 F-98.9 F 75-89 18-22 117-144/67-99 100-100 PHYSICAL EXAM GENERAL: Obese elderly woman, laying in bed, A&Ox3 HEAD: Normal with no signs of trauma. EYES: Pupils equal, round and reactive to light, extraocular movements intact, sclera anicteric, conjunctiva clear. No lid lag. EARS, NOSE, THROAT: Ears normal, nares patent, oropharynx clear without exudates. Moist mucous membranes. NECK: R IJ central line noted with no erythema, edema or oozing. No JVD noted. LUNGS: Moderate air entry. No wheezing or rhochi noted. Limited by body habitus. HEART: Distant heart sounds. Regular rate and rhythm, normal S1 and S2 without murmur, rub or gallop. ABDOMEN: Globular abdomen. Normoactive bowel sounds, no guarding, no rebound, no masses. Slight CVA tenderness in L flank UPPER EXTREMITIES: 2+ pulses, warm, well-perfused. No cyanosis. No clubbing. No peripheral edema. LOWER EXTREMITIES: BL statis dermatitis skin changes to lower shank. 1+ DP/PT in R leg, 2+ pulses in L. No calf tenderness. No peripheral edema. NEUROLOGICAL: Cranial nerves II-XII intact. Normal speech. 5/5 strength grossly in all extremities, preserved sensation diffusely. Facial symmetry. Gait not observed. PSYCHIATRIC: Cooperative. Good eye contact. Appropriate mood and affect. LABS Laboratory Results - last 24 hr CBC, BMP 12/24/17 05:05 12/24/17 05:05 12/23/17 12/24/17 12/24/17 23:00 05:05 05:05 WBC 8.7 D RBC 3.35 L Hgb 10.0 L Hct 30.1 L MCV 89.9 MCH 30.0 MCHC 33.3 RDW 18.4 H Plt Count 119 L MPV 8.3 Neutrophils % 78.0 Lymphocytes % 13.0 D Monocytes % 6.4 Eosinophils % 2.3 D Basophils % 0.3 PT with INR INR Sodium 145 144 Potassium 3.9 4.4 Chloride 119 H 118 H Carbon Dioxide 18 L 20 L Anion Gap 8 6 L BUN 13 12 Creatinine 0.8 0.7 Creat Clearance w eGFR > 60 Random Glucose 115 H 134 H Calcium 7.7 L 7.5 L Phosphorus 1.5 L 2.7 Magnesium 2.5 H 2.4 Total Bilirubin 0.2 AST 18 ALT 20 Alkaline Phosphatase 44 L Total Protein 4.7 L Albumin 2.3 L 12/24/17 05:05 WBC RBC Hgb Hct MCV MCH MCHC RDW Plt Count MPV Neutrophils % Lymphocytes % Monocytes % Eosinophils % Basophils % PT with INR 19.70 H INR 1.74 H Sodium Potassium Chloride Carbon Dioxide Anion Gap BUN Creatinine Creat Clearance w eGFR Random Glucose Calcium Phosphorus Magnesium Total Bilirubin AST ALT Alkaline Phosphatase Total Protein Albumin Microbiology 12/22/17 11:51 Blood - Peripheral Venous Blood Culture - Preliminary NO GROWTH OBTAINED AFTER 48 HOURS, INCUBATION TO CONTINUE FOR 3 DAYS. 12/22/17 11:40 Blood - Peripheral Venous Blood Culture - Preliminary NO GROWTH OBTAINED AFTER 48 HOURS, INCUBATION TO CONTINUE FOR 3 DAYS. 12/22/17 12:43 Stool Clostridium difficile Antigen (SUZETTE) - Final 12/22/17 12:43 Stool Clostridium difficile Toxin Assay - Final 12/22/17 12:43 Stool Salmonella/Shigella Culture - Preliminary NO ENTERIC PATHOGENS, 24 HOURS, ON PRIMARY PLATES 12/22/17 12:43 Stool Campylobacter Culture - Preliminary NO ENTERIC PATHOGENS, 24 HOURS, ON PRIMARY PLATES 12/22/17 12:43 Stool Yersinia Culture - Preliminary NO ENTERIC PATHOGENS, 24 HOURS, ON PRIMARY PLATES 12/22/17 12:43 Stool Vibrio Culture - Final NO GROWTH OF VIBRIO SPECIES OBTAINED 12/22/17 12:43 Stool Escherichia coli 0157 Culture - Final NO GROWTH OF E COLI 0157 OBTAINED 12/22/17 12:44 Urine - Urine Clean Catch Urine Culture - Preliminary Lactose Fermenting Neg Bacilli 12/22/17 14:45 Nasopharyngeal Swab Influenza Types A,B Antigen (SUZETTE) - Final 12/22/17 14:45 Nasopharyngeal Swab - Final Imaging: CXR 12/22 - no pathology noted EKG: Sinus tachycardia with LAD. RBBB. STD lead V3. Absent ALEJANDRO. Head CT 12/22 - No pathology noted Ab/pelvis CT 12/22 - IMPRESSION: 4 to 5 mm distal right ureteral calculus with minimal ipsilateral hydronephrosis. 2 mm nonobstructing left renal calculus. Diffuse hepatic steatosis. Status post cholecystectomy. Mild bibasilar discoid atelectasis. Renal/bladder US 12/23 - IMPRESSION: Findings suggestive of a nonobstructing left renal lower pole stone measuring 6 mm Both kidneys appear otherwise unremarkable. Empty urinary bladder and hence it could not be evaluated on this exam Echo 12/24 - Severe global hypokinesis of LV, normal size. EF 30-35%. Trace pulmonic regurgitation, mild MR. Grade II diastolic dysfunction. Normal RV function. Consults: Cardiology - Seen by Dr. Marsh Infectious Disease - Seen by Dr. Marsh Genitourinary - Seen by Dr. Mack HOSPITAL COURSE: Prehospital course: 72 yo woman w/ pmh of HTN, HLD, CHF, multiple DVTs (on coumadin), neurogenic bladder who presents with AMS since this AM in setting of likely UTI. Per pt, reports urinary retention for past few days, however denies dysuria, hematuria, pyuria, flank pain. Pt normally with urinary incontinence at baseline secondary to neurogenic bladder. Pt with fever/chills/fatigue yesterday, seen at urgent care and diagnosed with presumptive UTI. Prescribed Cefixime, however rx was not filled. Per , pt found in morning with AMS, garbled speech and rigors. Pt found by EMS laying on floor in urine and feces. Per pt, states that she felt chills/very somnolent in AM. No prior sick contacts, recent travel, recent infections. Denies VILLALTA, dizziness, CP, cough, SOB, focal neuro symptoms, rashes, constipation. Noted multiple episodes of diarrhea two days prior to admission which has persisted. Pt Urologist is Dr. Zelaya. Pt endorsed one episode of N/V in ED and complaining of epigastric pain as well. ER course was notable for: (1)Central line placed, levophed gtt started; received 2L in ED (2)BP 71/37, temp 103.8, pulse 108, WBC 14 - 12/26 sepsis critera (3)Received Vanc/zosyn (4)Admitted to ICU Hospital course: By problem - #Severe Sepsis 2/ UTI - +UA + leuk esterase, WBCs on admission; 12/26 sepsis criteria met; Pt hypotensive 60/40 in ED; lactate 2.7; ID consulted; Pt received multiple fluid boluses, received one dose of vanc/zosyn; R IJ central line place, pt started on Levophed in ICU with improvement in BP to MAP of 62-97 ; pt henry-culutured, ID consulted; repeat lactate 1.6; Pt stable in ICU, weaned off pressors by day 3 of admission; Urine cx's + for presumptive E. Coli infection; pt continued on zosyn per ID team #Elevated Trops - initially 1.19, likely demand ischemia; repeat 0.59; cardiology consulted; low likelihood of NSTEMI; later started on heparin gtt given arrhythmias and echo with LV systolic dysfunction and elevated trops; on heparin gtt on day of transfer #AMS - Pt presented altered; improved with hemo stabilization; A&Ox3 by night of admission #Hypokalemia - 2.7 on admission; repleted with IV and in D5-1/2 NS + 40meq; resolved #diarrhea - pt with persistent diarrhea starting two days prior to admission; stool culture, gastroenteritis panel, c diff studies sent; started on flagyl on admission; Still with diarrhea on transfer #Complete heart block - pt with 6 second complete heart block on tele overnight 12/24, in addition to venticular bigeminy; Echo with LV hypokinesis, EF 35%; Cardiology initially consulted on presentation due to troponinemia; seen by Dr. Gastelum on 12/24, recommended transfer to [facility] and [facility] and/or [facility]; Pt cleared from infectious disease team for PPM on 12/24 or after; Transfer initiated , accepting physician Dr. Gian Marcum at [facility]. Pt and family appraised of plan, all questions answered. Date of Admission:12/22/17 Date of Discharge: 12/24/17 Pt to be transferred to the care of Dr. Gian Marcum at [facility] for possibly PPM placement and/or LHC. Minutes to complete discharge: 35 Discharge Summary Reason For Visit: ACUTE KIDNEY INJURY; UTI; SEPTIC Current Active Problems GABRIELE (acute kidney injury) (Acute) Allergy to multiple antibiotics (Acute) Diarrhea (Acute) Elevated troponin (Acute) Warner cardiac risk >20% in next 10 years (Acute) Hydronephrosis (Acute) Hypokalemia (Acute) Hypomagnesemia (Acute) Hypophosphatemia (Acute) Hypotension (Acute) Lactic acidosis (Acute) Morbid obesity (Acute) Neurogenic bladder (Acute) Sepsis (Acute) Septic shock (Acute) UTI (urinary tract infection) (Acute) Ureteral calculus (Acute) Condition: Critical - Instructions Diet, Activity, Other Instructions: You are being transferred to [facility] for further evaluation of your cardiac function, including possible pacemaker placement due to concerning heart rhythms that were seen on your monitor. Your accepting physician is Dr. Gian Marcum. You have been cleared by our infectious disease team (Dr. Arguello) for possible pacemaker placement today or after. Blood cultures from 12/22 currently negative. Urine cultures with lactose fermenting Gram neg bacilli, results will need to be followed and antibiotics tapered accordingly. Currently you are on zosyn day 2. Your home medications prior to admission have been as follows: Medication Instructions Recorded Confirmed Type Desmopressin Acetate [Ddavp -] 0.4 mg PO HS 12/22/17 12/22/17 History Fluticasone Prop 0.05% Nasal 1 spray NS HS 12/22/17 12/22/17 History [Flonase -] Fluticasone Propionate [Flovent 250 mcg IH DAILY 12/22/17 12/22/17 History Diskus] Folic Acid - 3 mg PO DAILY 12/22/17 12/22/17 History Furosemide [Lasix] 20 mg PO DAILY 12/22/17 12/22/17 History Ipratropium/Albuterol Sulfate 4 gm IH DAILY 12/22/17 12/22/17 History [Combivent Respimat Inhal Sipsey] Meloxicam 15 mg PO DAILY 12/22/17 12/22/17 History Multivit-Min/FA/Lycopen/Lutein 1 each PO DAILY 12/22/17 12/22/17 History [Adults 50+ Multivitamin Tablet] Ropinirole HCl 2 mg PO HS 12/22/17 12/22/17 History Rosuvastatin [Crestor -] 10 mg PO DAILY 12/22/17 12/22/17 History Topiramate 75 mg PO BID 12/22/17 12/22/17 History Warfarin Sodium 5 mg PO DAILY 12/22/17 12/22/17 History Your current inpatient medications are as follows Your coumadin is being held and your are on heparin drip, your INR is 1.7, continue per MD. INR goal 2-[address] scan showed kidney stones and you were planned for cystoscopy and possible right JJ stent placement, however, you improved on antibiotics and are currently without fevers and with a normal white count. So procedure has been put on hold till later date. Your 2D echo showed poor heart function with EF 30-35%. Referrals: Shad Joyce MD [Primary Care Provider] - Oleg Cortes MD [Non Staff, Medical] - Loyd Zelaya MD [Staff Physician] - Disposition: TRANSFER ACUTE CARE/OTHER HOSP - Home Medications Comprehensive Discharge Medication List: Ambulatory Orders Desmopressin Acetate [Desmopressin Acetate -] 0.4 mg PO HS 12/22/17 Fluticasone Prop 0.05% Nasal [Flonase -] 1 spray NS HS 12/22/17 Fluticasone Propionate [Flovent Diskus] 250 mcg IH DAILY 12/22/17 Folic Acid - 3 mg PO DAILY 12/22/17 Ipratropium/Albuterol Sulfate [Combivent Respimat Inhal Sipsey] 4 gm IH DAILY Multivit-Min/FA/Lycopen/Lutein [Adults 50 Plus Multivitamin Tb] 1 each PO DAILY 12/22/17 Ropinirole HCl 2 mg PO HS 12/22/17 Rosuvastatin [Crestor -] 10 mg PO DAILY 12/22/17 Topiramate 75 mg PO BID 12/22/17 Acetaminophen [Tylenol .Regular Strength -] 650 mg PO Q6H PRN tablet 12/24/17 Albuterol 0.083% Nebulizer Alicia [Ventolin 0.083% Nebulizer Soln -] 1 amp NEB Q4H PRN amp 12/24/17 Chlorhexidine Gluconate [Hibiclens For Decolonization -] 1 applic TP HS bottle 12/24/17 Heparin - 1,000 unit IVPUSH PRN PRN vial 12/24/17 Heparin - 5,000 unit IVPUSH PRN PRN vial 12/24/17 Heparin Sod,Pork in 0.45% NaCl [Heparin 25,000 Unit/250-1/2 Ns] 25,000 unit IV ASDIR 2 Days iv.soln 12/24/17 Mupirocin Ointment [Bactroban Ointment (For Decolonization) -] 1 applic NS BID applic 12/24/17 Piperacillin/Tazob 3.375 gm [Zosyn -] 3.375 gm IVPB Q8H-IV vial 12/24/17 This patient is new to me today: No Emergency Visit: Yes ED Registration Date: 12/22/17 Care time: The patient presented to the Emergency Department on the above date and was hospitalized for further evaluation of their emergent condition. Critical Care patient: Yes Total Critical Care Time (in minutes): 35 Critical Care Statement: The care of this patient involved high complexity decision making to prevent further life threatening deterioration of the patient 's condition and/or to evaluate & treat vital organ system(s) failure or risk of failure. - Discharge Referral Referred to [facility] No
[2017-12-24] MEDS: CHLORHEXIDINE GLUCONATE 4% CLEANSER FOR DECOLONIZATION TP SCH (22:04)
[2017-12-24] MEDS: DESMOPRESSIN ACETATE 0.2 MG TABLET PO SCH (22:05)
[2017-12-24] MEDS: ROSUVASTATIN CA 10 MG TABLET (FP) PO SCH (22:06)
[2017-12-24] MEDS: rOPINIRole HCL 2 MG TABLET (FP) PO SCH (22:07)
[2017-12-25] MEDS: HEPARIN NA (PORCINE) 5,000 UNITS/ML 1ML VIAL IVPUSH PRN ×3 (00:23→19:34)
[2017-12-25] MEDS: PIPERACILLIN/TAZOB 3.375 GM 3.375 GM in DEXTROSE 5%-WATER - 50 ML IVPB SCH (02:20)
[2017-12-25 06:23] LABS: BASO % 0.2 % (0-2.0); EOS % 3.2 % (0-4.5); HEMATOCRIT 30.8 % (32.4-45.2); HEMOGLOBIN 10.4 GM/dL (10.7-15.3); LYMPH % 19.1 % (8-40); MCH 30.1 pg (25.7-33.7); MCHC 33.8 g/dl (32.0-36.0); MEAN PLT VOLUME 8.4 fl (7.5-11.1); MONO % 8.4 % (3.8-10.2); NEUT % 69.1 % (42.8-82.8); PLATELET COUNT 134 K/MM3 (134-434); RBC 3.46 M/mm3 (3.60-5.2); RDW 17.9 % (11.6-15.6); WHITE BLOOD COUNT 7.1 K/mm3 (4.0-10.0)
[2017-12-25 06:46] LABS: CHLORIDE 115 mmol/L (98-107); POTASSIUM 4.2 mmol/L (3.5-5.1); SODIUM 142 mmol/L (136-145)
[2017-12-25 06:55] LABS: ALBUMIN 2.5 g/dl (3.4-5.0); ALK PHOS 47 U/L (45-117); ANION GAP 6 (8-16); BILIRUBIN,TOTAL 0.4 mg/dL (0.2-1.0); BLOOD UREA NITROGEN 9 mg/dL (7-18); CALCIUM 7.8 mg/dL (8.5-10.1); CO2 21 mmol/L (21-32); CREATININE 0.7 mg/dL (0.55-1.02); GLUCOSE,RANDOM 111 mg/dL (74-106); MAGNESIUM 1.8 mg/dL (1.8-2.4); PHOSPHOROUS 2.4 mg/dL (2.5-4.9); SGOT/AST 13 U/L (15-37); SGPT/ALT 17 U/L (12-78)
--- NOTE | 2017-12-25 08:38 | PN ---
Physical Exam: SUBJECTIVE: Patient seen and examined - No overnight events. Afebrile, VSS. Endorsing dry cough, nausea however appetite improved. No diarrhea overnight. Denies VILLALTA, dizziness, cp, ab pain, back pain, le edema. Will go for transfer to [facility] today for PPM placement. OBJECTIVE: Vital Signs Intake & Output 12/22/17 12/23/17 12/24/17 12/25/17 23:59 23:59 23:59 23:59 Intake Total 3500 4050 1400 284 Output Total 150 3450 1900 400 Balance 3350 600 -500 -116 Weight 129.274 kg 128.684 kg 129.1 kg 130.362 kg Period Temp Pulse Resp BP Sys/Dennis Pulse Ox Last 24 Hr 98 F-99 F 75-85 18-22 121-167/67-92 98-100 GENERAL: Obese elderly woman, laying in bed, A&Ox3. Somnolent HEAD: Normal with no signs of trauma. Warm to touch. EYES: Pupils equal, round and reactive to light, extraocular movements intact, sclera anicteric, conjunctiva clear. No lid lag. EARS, NOSE, THROAT: Ears normal, nares patent, oropharynx clear without exudates. Moist mucous membranes. NECK: R IJ central line noted with no erythema, edema or oozing. No JVD noted. LUNGS: Good air entry. No wheezing or rhochi noted. Limited by body habitus. HEART: Distant heart sounds. Regular rate and rhythm, normal S1 and S2 without murmur, rub or gallop. ABDOMEN: Globular abdomen. TTP in RLQ. Normoactive bowel sounds, no guarding, no rebound, no masses. Trace CVA tenderness BL. UPPER EXTREMITIES: 2+ pulses, warm, well-perfused. No cyanosis. No clubbing. No peripheral edema. LOWER EXTREMITIES: BL statis dermatitis skin changes to lower shank. 2+ pulses BL. No calf tenderness. No peripheral edema. NEUROLOGICAL: Cranial nerves II-XII intact. Normal speech. 5/5 strength grossly in all extremities, preserved sensation diffusely. Facial symmetry. Gait not observed. PSYCHIATRIC: Cooperative. Good eye contact. Appropriate mood and affect. Laboratory Results - last 24 hr CBC, BMP 12/25/17 05:17 12/25/17 05:17 12/24/17 12/25/17 12/25/17 22:40 05:17 05:17 WBC 7.1 RBC 3.46 L Hgb 10.4 L Hct 30.8 L MCV 89.0 MCH 30.1 MCHC 33.8 RDW 17.9 H Plt Count 134 MPV 8.4 Neutrophils % 69.1 Lymphocytes % 19.1 D Monocytes % 8.4 Eosinophils % 3.2 Basophils % 0.2 PTT (Actin FS) 41.3 H D Sodium 142 Potassium 4.2 Chloride 115 H Carbon Dioxide 21 Anion Gap 6 L BUN 9 Creatinine 0.7 Creat Clearance w eGFR > 60 Random Glucose 111 H Calcium 7.8 L Phosphorus 2.4 L Magnesium 1.8 Total Bilirubin 0.4 D AST 13 L ALT 17 Alkaline Phosphatase 47 Total Protein 5.0 L Albumin 2.5 L 12/25/17 05:17 WBC RBC Hgb Hct MCV MCH MCHC RDW Plt Count MPV Neutrophils % Lymphocytes % Monocytes % Eosinophils % Basophils % PTT (Actin FS) 45.2 H Sodium Potassium Chloride Carbon Dioxide Anion Gap BUN Creatinine Creat Clearance w eGFR Random Glucose Calcium Phosphorus Magnesium Total Bilirubin AST ALT Alkaline Phosphatase Total Protein Albumin Active Medications Generic Name Dose Route Start Last Admin Trade Name Freq PRN Reason Stop Dose Admin Acetaminophen 650 mg 12/23/17 16:01 12/24/17 11:53 Tylenol - PO 650 mg Q6H PRN Administration FEVER Albuterol Sulfate 1 amp 12/22/17 21:12 12/22/17 21:56 Ventolin 0.083% Nebulizer Soln - NEB 1 amp Q4H PRN Administration SHORT OF BREATH/WHEEZING Chlorhexidine Gluconate 1 applic 12/22/17 22:00 12/24/17 22:04 Hibiclens For Decolonization - TP 1 applic HS RAMBO Administration Desmopressin Acetate 0.4 mg 12/22/17 22:00 12/24/17 22:05 Ddavp - PO 0.4 mg HS RAMBO Administration Heparin Sodium (Porcine) 1,000 unit 12/24/17 13:21 12/25/17 00:23 Heparin - IVPUSH 1,000 unit PRN PRN Administration Heparin Heparin Sodium (Porcine) 5,000 unit 12/24/17 13:21 12/24/17 15:56 Heparin - IVPUSH 5,000 unit PRN PRN Administration Heparin Norepinephrine Bitartrate 8, 500 mls @ 18.75 mls/hr 12/22/17 13:00 12/24/17 16:17 000 mcg/ Dextrose IV Not Given TITR RAMBO Protocol 5 MCG/MIN Piperacillin Sod/Tazobactam 50 mls @ 100 mls/hr 12/23/17 09:00 12/25/17 02:20 Sod 3.375 gm/ Dextrose IVPB 100 mls/hr Q8H-IV RAMBO Administration HEPARIN SOD,PORK IN 0.45% NACL 25,000 units in 500 mls @ 20 mls/hr 12/24/17 13 :30 12/25/17 00:22 Heparin-1/2ns 25,000 Units/500 IVPB 1,100 units/hr TITR RAMBO 22 mls/hr Protocol Titration 1,000 UNITS/HR Mupirocin 1 applic 12/22/17 22:00 12/24/17 22:04 Bactroban Ointment (For Decolonization) - NS 12/27/17 21:59 1 applic BID RAMBO Administration Ropinirole HCl 2 mg 12/24/17 22:00 12/24/17 22:07 Requip - PO 2 mg HS RAMBO Administration Rosuvastatin Calcium 10 mg 12/23/17 22:00 12/24/17 22:06 Crestor - PO 10 mg HS RAMBO Administration Topiramate 75 mg 12/22/17 22:00 12/24/17 22:05 Topamax - PO 75 mg BID RAMBO Administration Warfarin Sodium 5 mg 12/24/17 18:00 12/24/17 17:19 Coumadin - PO Not Given DAILY@1800 [facility] Microbiology 12/22/17 11:51 Blood - Peripheral Venous Blood Culture - Preliminary NO GROWTH OBTAINED AFTER 48 HOURS, INCUBATION TO CONTINUE FOR 3 DAYS. 12/22/17 11:40 Blood - Peripheral Venous Blood Culture - Preliminary NO GROWTH OBTAINED AFTER 48 HOURS, INCUBATION TO CONTINUE FOR 3 DAYS. 12/22/17 12:43 Stool Clostridium difficile Antigen (SUZETTE) - Final 12/22/17 12:43 Stool Clostridium difficile Toxin Assay - Final 12/22/17 12:43 Stool Salmonella/Shigella Culture - Preliminary NO ENTERIC PATHOGENS, 24 HOURS, ON PRIMARY PLATES 12/22/17 12:43 Stool Campylobacter Culture - Preliminary NO ENTERIC PATHOGENS, 24 HOURS, ON PRIMARY PLATES 12/22/17 12:43 Stool Yersinia Culture - Preliminary NO ENTERIC PATHOGENS, 24 HOURS, ON PRIMARY PLATES 12/22/17 12:43 Stool Vibrio Culture - Final NO GROWTH OF VIBRIO SPECIES OBTAINED 12/22/17 12:43 Stool Escherichia coli 0157 Culture - Final NO GROWTH OF E COLI 0157 OBTAINED 12/22/17 12:44 Urine - Urine Clean Catch Urine Culture - Preliminary Lactose Fermenting Neg Bacilli 12/22/17 14:45 Nasopharyngeal Swab Influenza Types A,B Antigen (SUZETTE) - Final 12/22/17 14:45 Nasopharyngeal Swab - Final Imaging: CXR 12/22 - no pathology noted EKG: Sinus tachycardia with LAD. RBBB. STD lead V3. Absent ALEJANDRO. Head CT 12/22 - No pathology noted Ab/pelvis CT 12/22 - IMPRESSION: 4 to 5 mm distal right ureteral calculus with minimal ipsilateral hydronephrosis. 2 mm nonobstructing left renal calculus. Diffuse hepatic steatosis. Status post cholecystectomy. Mild bibasilar discoid atelectasis. Renal/bladder US 12/23 - IMPRESSION: Findings suggestive of a nonobstructing left renal lower pole stone measuring 6 mm Both kidneys appear otherwise unremarkable. Empty urinary bladder and hence it could not be evaluated on this exam Echo 12/24 - Severe global hypokinesis of LV, normal size. EF 30-35%. Trace pulmonic regurgitation, mild MR. Grade II diastolic dysfunction. Normal RV function. 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 Pt off pressors, VSS on IV Zosyn. Pt awaiting transfer to [facility] for LHC and possible PPM placement given complete ECHO with severely reduced EF and complete heart block with 6 seconds of non- conducted p-waves on Telemetry. #Complete heart block with venticular pause - 6 seconds ventricular asystole w/ non-conducted pwaves noted on tele; Echo with global hypokinesia and reduced ejection fraction 30-35%; pt for transfer to [facility] for LHC and possible PPM - Awaiting bed; transfer initiated; accepting physician Dr. Gian Marcum - cardiac monitoring - cleared by ID for PPM placement - cardiology consulted, recs appreciated #Severe Sepsis 2/2 UTI - +UA; 12/26 sepsis criteria met; on pressors; ICU admission; UA + leuk esterase, WBCs; likely secondary to obstruction from renal stones - urine cultures + for E COli -off pressors for >48 hours; central line pulled - Ancef for abx per ID recs - ID consulted, recs appreciated - trend fever, WBC curve - PO hydration - lactate normalized - Queen - Strict Is and Os - Monitor for hypotension - will require Cysto and stent placement as outpt with Dr. Zelaya #GABRIELE - elevated Cr 1.5 -> normalized at 0.7 - Trend - CT abdomen/pelvis results as noted above; BL renal stones - hold home lasix/NSAIDs - CT Ab/Pelvis to r/o kidney stone #Elevated Trops - 1.19; now resolved #AMS - Resolved #Hypokalemia - resolved -daily CBCs #diarrhea - normal, formed stool this AM - stool cultures, c diff toxin/culture, GE panel all negative to date - monitor #neurogenic bladder - c/w ddavp #?migraines - topiramate #Restless leg syndrome - c/w ropirinole #Multiple prior DVTs - Hold coumadin for now - Heparin gtt #HTN - hold home HTN meds in setting of sepsis, hypotension #HLD - c/w home crestor #CHF - severe LV hypokinesia, EF 35% - Cardiology consulted - ECHO results as noted above - LHC upon transfer #PPX Hep gtt #FEN PO hydration Daily lytes Regular diet Dispo - Admit to ICU Plan discussed with attending, Dr. Deandre Alexis, PGY1 Visit type - Emergency Visit Emergency Visit: Yes ED Registration Date: 12/22/17 Care time: The patient presented to the Emergency Department on the above date and was hospitalized for further evaluation of their emergent condition. - New Patient This patient is new to me today: No - Critical Care Critical Care patient: Yes Total Critical Care Time (in minutes): 35 Critical Care Statement: The care of this patient involved high complexity decision making to prevent further life threatening deterioration of the patient 's condition and/or to evaluate & treat vital organ system(s) failure or risk of failure.
--- NOTE | 2017-12-25 08:39 | PN ---
Progress Note (short form) - Note Progress Note: doing well no pressors no fevers still with mcfarlane Vital Signs Period Temp Pulse Resp BP Sys/Dennis Pulse Ox Last 24 Hr 98 F-99 F 75-85 18-22 121-167/67-92 98-100 cor-rrr lungs clear abd soft,nt ext no edema mcfarlane CBC, BMP 12/25/17 05:17 12/25/17 05:17 Microbiology 12/22/17 12:44 Urine - Urine Clean Catch Urine Culture - Final Escherichia Coli 12/22/17 11:51 Blood - Peripheral Venous Blood Culture - Preliminary NO GROWTH OBTAINED AFTER 48 HOURS, INCUBATION TO CONTINUE FOR 3 DAYS. 12/22/17 11:40 Blood - Peripheral Venous Blood Culture - Preliminary NO GROWTH OBTAINED AFTER 48 HOURS, INCUBATION TO CONTINUE FOR 3 DAYS. 12/22/17 12:43 Stool Clostridium difficile Antigen (SUZETTE) - Final 12/22/17 12:43 Stool Clostridium difficile Toxin Assay - Final 12/22/17 12:43 Stool Salmonella/Shigella Culture - Preliminary NO ENTERIC PATHOGENS, 24 HOURS, ON PRIMARY PLATES 12/22/17 12:43 Stool Campylobacter Culture - Preliminary NO ENTERIC PATHOGENS, 24 HOURS, ON PRIMARY PLATES 12/22/17 12:43 Stool Yersinia Culture - Preliminary NO ENTERIC PATHOGENS, 24 HOURS, ON PRIMARY PLATES 12/22/17 12:43 Stool Vibrio Culture - Final NO GROWTH OF VIBRIO SPECIES OBTAINED 12/22/17 12:43 Stool Escherichia coli 0157 Culture - Final NO GROWTH OF E COLI 0157 OBTAINED 12/22/17 14:45 Nasopharyngeal Swab Influenza Types A,B Antigen (SUZETTE) - Final 12/22/17 14:45 Nasopharyngeal Swab - Final Current Medications Acetaminophen (Tylenol -) 650 mg PO Q6H PRN PRN Reason: FEVER Last Admin: 12/24/17 11:53 Dose: 650 mg Albuterol Sulfate (Ventolin 0.083% Nebulizer Soln -) 1 amp NEB Q4H PRN PRN Reason: SHORT OF BREATH/WHEEZING Last Admin: 12/22/17 21:56 Dose: 1 amp Chlorhexidine Gluconate (Hibiclens For Decolonization -) 1 applic TP HS RAMBO Last Admin: 12/24/17 22:04 Dose: 1 applic Desmopressin Acetate (Ddavp -) 0.4 mg PO HS RAMBO Last Admin: 12/24/17 22:05 Dose: 0.4 mg Heparin Sodium (Porcine) (Heparin -) 1,000 unit IVPUSH PRN PRN PRN Reason: Heparin Last Admin: 12/25/17 00:23 Dose: 1,000 unit Heparin Sodium (Porcine) (Heparin -) 5,000 unit IVPUSH PRN PRN PRN Reason: Heparin Last Admin: 12/24/17 15:56 Dose: 5,000 unit Norepinephrine Bitartrate 8, (000 mcg/ Dextrose) 500 mls @ 18.75 mls/hr IV TITR RAMBO; 5 MCG/MIN PRN Reason: Protocol Last Admin: 12/24/17 16:17 Dose: Not Given Piperacillin Sod/Tazobactam (Sod 3.375 gm/ Dextrose) 50 mls @ 100 mls/hr IVPB Q8H-IV RAMBO Last Admin: 12/25/17 02:20 Dose: 100 mls/hr HEPARIN SOD,PORK IN 0.45% NACL (Heparin-1/2ns 25,000 Units/500) 25,000 units in 500 mls @ 20 mls/hr IVPB TITR RAMBO; 1,000 UNITS/HR PRN Reason: Protocol Last Titration: 12/25/17 00:22 Dose: 1,100 units/hr, 22 mls/hr Mupirocin (Bactroban Ointment (For Decolonization) -) 1 applic NS BID [facility] Stop: 12/27/17 21:59 Last Admin: 12/24/17 22:04 Dose: 1 applic Ropinirole HCl (Requip -) 2 mg PO [facility] Last Admin: 12/24/17 22:07 Dose: 2 mg Rosuvastatin Calcium (Crestor -) 10 mg PO [facility] Last Admin: 12/24/17 22:06 Dose: 10 mg Topiramate (Topamax -) 75 mg PO BID [facility] Last Admin: 12/24/17 22:05 Dose: 75 mg Warfarin Sodium (Coumadin -) 5 mg PO DAILY@1800 [facility] Last Admin: 12/24/17 17:19 Dose: Not Given a/p for transfer for evaluation of heart block sepsis-ecoli uti- resistant to bactrim only- switch to cefazolin UTI/ureteral stone diarrhea resolved history of neurogenic bladder quinolone allergy/sulfa allergy no history of resistant organisms Problem List - Problems (1) Sepsis Code(s): A41.9 - SEPSIS, UNSPECIFIED ORGANISM (2) UTI (urinary tract infection) Code(s): N39.0 - URINARY TRACT INFECTION, SITE NOT SPECIFIED (3) Diarrhea Code(s): R19.7 - DIARRHEA, UNSPECIFIED (4) Neurogenic bladder Code(s): N31.9 - NEUROMUSCULAR DYSFUNCTION OF BLADDER, UNSPECIFIED (5) Allergy to multiple antibiotics Code(s): Z88.1 - ALLERGY STATUS TO OTHER ANTIBIOTIC AGENTS STATUS
[2017-12-25] MEDS ORDERED: CEFTRIAXONE IN IS-OSM DEXTROSE 2 GM/50 ML BAG IVPB SCH (10:00)
[2017-12-25] MEDS: MUPIROCIN 2% TOPICAL OINTMENT FOR DECOLONIZATION NS SCH ×2 (10:19→21:55)
[2017-12-25] MEDS: TOPIRAMATE 25 MG TABLET (FP) PO SCH ×2 (10:19→21:55)
[2017-12-25] MEDS: CEFAZOLIN 2 GM/D5W 2 GM/50 ML ML IVPB SCH ×2 (10:25→18:00)
--- NOTE | 2017-12-25 11:59 | PN ---
Progress Note, Physician Chief Complaint: Pt, surrounded by family, denies chest pain, dyspnea, palpitations, or dizziness. History of Present Illness: 72 yo woman with h/o HTN, NIDDM, HLD, CHF, DVT's (on Coumadin), Morbid obesity, and neurogenic bladder BIBA w/ AMS. EMS reports pt. with BS~116, hypotensive SBP ~90s, and responsive, but somonolent. When EMS arrived, pt. was lying on floor mat in urine and feces.Per pt. at bedside she woke up this morning lethargic and confused. When he asked her questions, she responded with garbled speech and sounds. Patient was complaining of chills and with cold intolerance and rigors this AM. Pt. with urine incontinence and fecal incontinence at baseline. Denies hematuria, dysuria, or flank pain. report visit to urgent care yesterday evening and pt. sent out with Cefixime, but did not fill rx.She follows with Dr. Zelaya [facility], and was scheduled to see him oupt. but were unable to. see him in office. Denies CP, SOB, cough, abdominal pain, diarrhea, constipation, lightheadedness, weakness, sensory changes.Denies h/o CVA/TIA. - Current Medication List Current Medications: Active Medications Acetaminophen (Tylenol -) 650 mg PO Q6H PRN PRN Reason: FEVER Last Admin: 12/24/17 11:53 Dose: 650 mg Albuterol Sulfate (Ventolin 0.083% Nebulizer Soln -) 1 amp NEB Q4H PRN PRN Reason: SHORT OF BREATH/WHEEZING Last Admin: 12/22/17 21:56 Dose: 1 amp Chlorhexidine Gluconate (Hibiclens For Decolonization -) 1 applic TP HS RAMBO Last Admin: 12/24/17 22:04 Dose: 1 applic Desmopressin Acetate (Ddavp -) 0.4 mg PO HS [facility] Last Admin: 12/24/17 22:05 Dose: 0.4 mg Heparin Sodium (Porcine) (Heparin -) 1,000 unit IVPUSH PRN PRN PRN Reason: Heparin Last Admin: 12/25/17 10:25 Dose: 1,000 unit Heparin Sodium (Porcine) (Heparin -) 5,000 unit IVPUSH PRN PRN PRN Reason: Heparin Last Admin: 12/24/17 15:56 Dose: 5,000 unit HEPARIN SOD,PORK IN 0.45% NACL (Heparin-1/2ns 25,000 Units/500) 25,000 units in 500 mls @ 20 mls/hr IVPB TITR RAMBO; 1,000 UNITS/HR PRN Reason: Protocol Last Titration: 12/25/17 10:26 Dose: 1,200 units/hr, 24 mls/hr Cefazolin Sodium/Dextrose (Ancef 2 Gm Premixed Ivpb -) 2 gm in 50 mls @ 100 mls /hr IVPB Q8H-IV RAMBO Last Admin: 12/25/17 10:25 Dose: 100 mls/hr Mupirocin (Bactroban Ointment (For Decolonization) -) 1 applic NS BID [facility] Stop: 12/27/17 21:59 Last Admin: 12/25/17 10:19 Dose: 1 applic Ropinirole HCl (Requip -) 2 mg PO HS [facility] Last Admin: 12/24/17 22:07 Dose: 2 mg Rosuvastatin Calcium (Crestor -) 10 mg PO HS [facility] Last Admin: 12/24/17 22:06 Dose: 10 mg Topiramate (Topamax -) 75 mg PO BID [facility] Last Admin: 12/25/17 10:19 Dose: 75 mg Warfarin Sodium (Coumadin -) 5 mg PO DAILY@1800 [facility] Last Admin: 12/24/17 17:19 Dose: Not Given - Objective Vital Signs: Vital Signs Temperature 98.5 F 12/25/17 10:00 Pulse Rate 74 12/25/17 10:00 Respiratory Rate 20 12/25/17 10:00 Blood Pressure 133/67 12/25/17 10:00 O2 Sat by Pulse Oximetry (%) 98 12/24/17 21:00 Constitutional: Yes: Anxious Eyes: Yes: WNL HENT: Yes: WNL Neck: Yes: WNL Cardiovascular: Yes: WNL Labs: CBC, BMP 12/25/17 05:17 12/25/17 05:17 INR, PTT INR 1.74 (0.82-1.09) H 12/24/17 05:05 Problem List - Problems (1) Sepsis Assessment/Plan: Continue antibiotics. Gentle hydration (pt has severe LV dysfunction). Code(s): A41.9 - SEPSIS, UNSPECIFIED ORGANISM (2) UTI (urinary tract infection) Code(s): N39.0 - URINARY TRACT INFECTION, SITE NOT SPECIFIED (3) HLD (hyperlipidemia) Code(s): E78.5 - HYPERLIPIDEMIA, UNSPECIFIED Qualifiers: Hyperlipidemia type: other hyperlipidemia Qualified Code(s): E78.4 - Other hyperlipidemia (4) History of DVT (deep vein thrombosis) Assessment/Plan: Warfarin held pending coronary angiogram, PPM and/or ICD. On IV heparin. Code(s): Z86.718 - PERSONAL HISTORY OF OTHER VENOUS THROMBOSIS AND EMBOLISM (5) Morbid obesity Code(s): E66.01 - MORBID (SEVERE) OBESITY DUE TO EXCESS CALORIES (6) [place] cardiac risk >20% in next 10 years Code(s): Z91.89 - [facility] PERSONAL RISK FACTORS, NOT ELSEWHERE CLASSIFIED (7) Hypotension Code(s): I95.9 - HYPOTENSION, UNSPECIFIED (8) Hypophosphatemia Code(s): E83.39 - OTHER DISORDERS OF PHOSPHORUS METABOLISM (9) Hypomagnesemia Code(s): E83.42 - HYPOMAGNESEMIA (10) Elevated troponin Code(s): R74.8 - ABNORMAL LEVELS OF OTHER SERUM ENZYMES (11) Acute on chronic systolic (congestive) heart failure Code(s): I50.23 - ACUTE ON CHRONIC SYSTOLIC (CONGESTIVE) HEART FAILURE (12) Sinus pause Assessment/Plan: ? advanced AV Block For transfeer to [facility] for conronary angiogram, furhter evaluation of arrhythmia combined with severe systolic LV dysfunction. Code(s): I45.5 - OTHER SPECIFIED HEART BLOCK (13) Sleep apnea Assessment/Plan: CPAP. Weight loss. Code(s): G47.30 - SLEEP APNEA, UNSPECIFIED
--- NOTE | 2017-12-25 12:20 | PN ---
Teaching Attending Note Name of Resident: Beck Stoddard ATTENDING PHYSICIAN STATEMENT I saw and evaluated the patient. I reviewed the resident's note and discussed the case with the resident. I agree with the resident's findings and plan as documented. SUBJECTIVE: Patient seen and examined in the ICU. Remains off pressors. No CP or SOB. AHI: 15 events per hour: consistent with Moderate OSAS Intake & Output 12/22/17 12/23/17 12/24/17 12/25/17 23:59 23:59 23:59 23:59 Intake Total 3500 4050 1400 284 Output Total 150 3450 1900 400 Balance 3350 600 -500 -116 Weight 285 lb 283 lb 11.2 oz 284 lb 9.868 oz 287 lb 6.4 oz Last Vital Signs Temp Pulse Resp BP Pulse Ox 98.5 F 74 20 133/67 98 12/25/17 10:00 12/25/17 10:00 12/25/17 10:00 12/25/17 10:00 12/24/17 21:00 Active Medications Acetaminophen (Tylenol -) 650 mg PO Q6H PRN PRN Reason: FEVER Last Admin: 12/24/17 11:53 Dose: 650 mg Albuterol Sulfate (Ventolin 0.083% Nebulizer Soln -) 1 amp NEB Q4H PRN PRN Reason: SHORT OF BREATH/WHEEZING Last Admin: 12/22/17 21:56 Dose: 1 amp Chlorhexidine Gluconate (Hibiclens For Decolonization -) 1 applic TP HS [facility] Last Admin: 12/24/17 22:04 Dose: 1 applic Desmopressin Acetate (Ddavp -) 0.4 mg PO HS [facility] Last Admin: 12/24/17 22:05 Dose: 0.4 mg Heparin Sodium (Porcine) (Heparin -) 1,000 unit IVPUSH PRN PRN PRN Reason: Heparin Last Admin: 12/25/17 10:25 Dose: 1,000 unit Heparin Sodium (Porcine) (Heparin -) 5,000 unit IVPUSH PRN PRN PRN Reason: Heparin Last Admin: 12/24/17 15:56 Dose: 5,000 unit HEPARIN SOD,PORK IN 0.45% NACL (Heparin-1/2ns 25,000 Units/500) 25,000 units in 500 mls @ 20 mls/hr IVPB TITR RAMBO; 1,000 UNITS/HR PRN Reason: Protocol Last Titration: 12/25/17 10:26 Dose: 1,200 units/hr, 24 mls/hr Cefazolin Sodium/Dextrose (Ancef 2 Gm Premixed Ivpb -) 2 gm in 50 mls @ 100 mls /hr IVPB Q8H-IV [facility] Last Admin: 12/25/17 10:25 Dose: 100 mls/hr Mupirocin (Bactroban Ointment (For Decolonization) -) 1 applic NS BID [facility] Stop: 12/27/17 21:59 Last Admin: 12/25/17 10:19 Dose: 1 applic Ropinirole HCl (Requip -) 2 mg PO HS [facility] Last Admin: 12/24/17 22:07 Dose: 2 mg Rosuvastatin Calcium (Crestor -) 10 mg PO HS [facility] Last Admin: 12/24/17 22:06 Dose: 10 mg Topiramate (Topamax -) 75 mg PO BID [facility] Last Admin: 12/25/17 10:19 Dose: 75 mg Warfarin Sodium (Coumadin -) 5 mg PO DAILY@1800 [facility] Last Admin: 12/24/17 17:19 Dose: Not Given Gen: Awake, alert Heart: RRR Lung: decreased breath sounds at the bases Abd: soft, nontender Ext: no edema Laboratory Results - last 24 hr 12/24/17 12/25/17 12/25/17 22:40 05:17 05:17 WBC 7.1 RBC 3.46 L Hgb 10.4 L Hct 30.8 L MCV 89.0 MCH 30.1 MCHC 33.8 RDW 17.9 H Plt Count 134 MPV 8.4 Neutrophils % 69.1 Lymphocytes % 19.1 D Monocytes % 8.4 Eosinophils % 3.2 Basophils % 0.2 PTT (Actin FS) 41.3 H D Sodium 142 Potassium 4.2 Chloride 115 H Carbon Dioxide 21 Anion Gap 6 L BUN 9 Creatinine 0.7 Creat Clearance w eGFR > 60 Random Glucose 111 H Calcium 7.8 L Phosphorus 2.4 L Magnesium 1.8 Total Bilirubin 0.4 D AST 13 L ALT 17 Alkaline Phosphatase 47 Total Protein 5.0 L Albumin 2.5 L 12/25/17 05:17 WBC RBC Hgb Hct MCV MCH MCHC RDW Plt Count MPV Neutrophils % Lymphocytes % Monocytes % Eosinophils % Basophils % PTT (Actin FS) 45.2 H Sodium Potassium Chloride Carbon Dioxide Anion Gap BUN Creatinine Creat Clearance w eGFR Random Glucose Calcium Phosphorus Magnesium Total Bilirubin AST ALT Alkaline Phosphatase Total Protein Albumin Problem List - Problems (1) UTI (urinary tract infection) Code(s): N39.0 - URINARY TRACT INFECTION, SITE NOT SPECIFIED (2) Septic shock Code(s): A41.9 - SEPSIS, UNSPECIFIED ORGANISM; R65.21 - SEVERE SEPSIS WITH SEPTIC SHOCK (3) GABRIELE (acute kidney injury) Code(s): N17.9 - ACUTE KIDNEY FAILURE, UNSPECIFIED (4) Hypokalemia Code(s): E87.6 - HYPOKALEMIA (5) Lactic acidosis Code(s): E87.2 - ACIDOSIS (6) CHF (congestive heart failure) Code(s): I50.9 - HEART FAILURE, UNSPECIFIED (7) HLD (hyperlipidemia) Code(s): E78.5 - HYPERLIPIDEMIA, UNSPECIFIED Qualifiers: Hyperlipidemia type: other hyperlipidemia Qualified Code(s): E78.4 - Other hyperlipidemia (8) History of DVT (deep vein thrombosis) Code(s): Z86.718 - PERSONAL HISTORY OF OTHER VENOUS THROMBOSIS AND EMBOLISM (9) Neurogenic dysfunction of the urinary bladder Code(s): N31.9 - NEUROMUSCULAR DYSFUNCTION OF BLADDER, UNSPECIFIED A/P UTI Septic Shock Acute Kidney Injury Nephrolithiasis Lactic Acidosis +Troponins likely Demand Ischemia Asthma DM Hyperlipidemia h/o DVT Morbid Obesity Suspected OSAS - Will need formal Sleep workup/treatment after D/C - IV antibiotics - continue anticoagulation - inhaled bronchodilators - PO as tolerated - Patient for transfer to [facility] for further cardiac evaluation Dr Valverde critical care time spent in reviewing chart, evaluating patient and formulating plan 36 min
--- NOTE | 2017-12-25 13:44 | PN ---
Physical Exam: SUBJECTIVE: Ms. Betts reports she feels "just as crappy as yesterday." She has no new complaints. OBJECTIVE: No acute events overnight. Vital Signs Period Temp Pulse Resp BP Sys/Dennis Pulse Ox Last 24 Hr 98 F-99 F 74-85 20-22 121-167/67-92 98 GENERAL: The patient is awake, alert, and fully oriented, in no acute distress. HEAD: Normal with no signs of trauma. EYES: PERRL, extraocular movements intact, sclera anicteric, conjunctiva clear. No ptosis. ENT: Ears normal, nares patent, oropharynx clear without exudates, moist mucous membranes. NECK: Trachea midline, full range of motion, supple. LUNGS: Breath sounds equal, clear to auscultation bilaterally, no wheezes, no crackles, no accessory muscle use. HEART: Regular rate and rhythm, S1, S2 without murmur, rub or gallop. ABDOMEN: Soft, nontender, nondistended, normoactive bowel sounds, no guarding, no rebound, no hepatosplenomegaly, no masses. EXTREMITIES: 2+ pulses, warm, well-perfused, no edema. NEUROLOGICAL: Cranial nerves II through XII grossly intact. Normal speech, gait not observed. PSYCH: Normal mood, normal affect. SKIN: Warm, dry, normal turgor, no rashes or lesions noted Laboratory Results - last 24 hr 12/24/17 12/25/17 12/25/17 22:40 05:17 05:17 WBC 7.1 RBC 3.46 L Hgb 10.4 L Hct 30.8 L MCV 89.0 MCH 30.1 MCHC 33.8 RDW 17.9 H Plt Count 134 MPV 8.4 Neutrophils % 69.1 Lymphocytes % 19.1 D Monocytes % 8.4 Eosinophils % 3.2 Basophils % 0.2 PTT (Actin FS) 41.3 H D Sodium 142 Potassium 4.2 Chloride 115 H Carbon Dioxide 21 Anion Gap 6 L BUN 9 Creatinine 0.7 Creat Clearance w eGFR > 60 Random Glucose 111 H Calcium 7.8 L Phosphorus 2.4 L Magnesium 1.8 Total Bilirubin 0.4 D AST 13 L ALT 17 Alkaline Phosphatase 47 Total Protein 5.0 L Albumin 2.5 L 12/25/17 05:17 WBC RBC Hgb Hct MCV MCH MCHC RDW Plt Count MPV Neutrophils % Lymphocytes % Monocytes % Eosinophils % Basophils % PTT (Actin FS) 45.2 H Sodium Potassium Chloride Carbon Dioxide Anion Gap BUN Creatinine Creat Clearance w eGFR Random Glucose Calcium Phosphorus Magnesium Total Bilirubin AST ALT Alkaline Phosphatase Total Protein Albumin Active Medications Generic Name Dose Route Start Last Admin Trade Name Freq PRN Reason Stop Dose Admin Acetaminophen 650 mg 12/23/17 16:01 12/24/17 11:53 Tylenol - PO 650 mg Q6H PRN Administration FEVER Albuterol Sulfate 1 amp 12/22/17 21:12 12/22/17 21:56 Ventolin 0.083% Nebulizer Soln - NEB 1 amp Q4H PRN Administration SHORT OF BREATH/WHEEZING Chlorhexidine Gluconate 1 applic 12/22/17 22:00 12/24/17 22:04 Hibiclens For Decolonization - TP 1 applic HS RAMBO Administration Desmopressin Acetate 0.4 mg 12/22/17 22:00 12/24/17 22:05 Ddavp - PO 0.4 mg HS RAMBO Administration Heparin Sodium (Porcine) 1,000 unit 12/24/17 13:21 12/25/17 10:25 Heparin - IVPUSH 1,000 unit PRN PRN Administration Heparin Heparin Sodium (Porcine) 5,000 unit 12/24/17 13:21 12/24/17 15:56 Heparin - IVPUSH 5,000 unit PRN PRN Administration Heparin HEPARIN SOD,PORK IN 0.45% NACL 25,000 units in 500 mls @ 20 mls/hr 12/24/17 13 :30 12/25/17 10:26 Heparin-1/2ns 25,000 Units/500 IVPB 1,200 units/hr TITR RAMBO 24 mls/hr Protocol Titration 1,000 UNITS/HR Cefazolin Sodium/Dextrose 2 gm in 50 mls @ 100 mls/hr 12/25/17 10:00 10:25 Ancef 2 Gm Premixed Ivpb - IVPB 100 mls/hr Q8H-IV RAMBO Administration Mupirocin 1 applic 12/22/17 22:00 12/25/17 10:19 Bactroban Ointment (For Decolonization) - NS 12/27/17 21:59 1 applic BID RAMBO Administration Ropinirole HCl 2 mg 12/24/17 22:00 12/24/17 22:07 Requip - PO 2 mg HS RAMBO Administration Rosuvastatin Calcium 10 mg 12/23/17 22:00 12/24/17 22:06 Crestor - PO 10 mg HS RAMBO Administration Topiramate 75 mg 12/22/17 22:00 12/25/17 10:19 Topamax - PO 75 mg BID RAMBO Administration Warfarin Sodium 5 mg 12/24/17 18:00 12/24/17 17:19 Coumadin - PO Not Given DAILY@1800 [facility] ASSESSMENT/PLAN: Ms. Betts is a 72 yo female w/ pmh of HTN, NIDDM, HLD, CHF, DVT's (on coumadin ), morbid obesity, and neurogenic bladder who presented to ER with Urosepsis - now grossly resolved; pending transfer to [facility] for pacemaker placement after cardiac pause and ventricular bigeminy. UTI / Sepsis - ID consulted - Zosyn changed to cefazolin per ID - Levo gtt off - Central line removed - Lactate / WBC wnl, continue to trend Bigeminy / Rhythm pause - Cardiology consulted - Pacers to bedside - Pending transfer GABRIELE - 5% NS - Trend BUN/Cr (12/0.7 today) - Consulted for kidney stone - Cystoscopy / stent delayed indefinitely in face of cardiac changes as patient currently asymptomatic - Urology consulted AMS - Head CT normal - AMS resolved Diarrhea - Stool cultures for c diff Neurogenic bladder - DDAVP DVTs - Heparin gtt - holding coumadin for surgery PPX - Heparin gtt as above FEN - 5% NS - replete electrolytes prn - diet as tolerated Disposition - Transfer to [facility] pending open bed Visit type - Emergency Visit Emergency Visit: Yes ED Registration Date: 12/22/17 Care time: The patient presented to the Emergency Department on the above date and was hospitalized for further evaluation of their emergent condition. - New Patient This patient is new to me today: No - Critical Care Critical Care patient: Yes Total Critical Care Time (in minutes): 41 Critical Care Statement: The care of this patient involved high complexity decision making to prevent further life threatening deterioration of the patient 's condition and/or to evaluate & treat vital organ system(s) failure or risk of failure.
--- NOTE | 2017-12-25 16:56 | PN ---
Teaching Attending Note Name of Resident: Ryan Alexis ATTENDING PHYSICIAN STATEMENT I saw and evaluated the patient. I reviewed the resident's note and discussed the case with the resident. I agree with the resident's findings and plan as documented. SUBJECTIVE:some abdominal discomfort L >R but not worse than yesterday. does not have CP or palpitations. denies CP, SOB, fever, chills, cough, N/V/C/D OBJECTIVE: Last Vital Signs Temp Pulse Resp BP Pulse Ox 99 F 82 20 154/85 98 12/25/17 14:00 12/25/17 14:00 12/25/17 14:00 12/25/17 14:00 12/24/17 21:00 General NAD CV S1 S2 irregular Lungs CTA B/L No wheezing/rales/rhonchi Abdomen soft NT/ND obese Extremities no pedal edema ASSESSMENT AND PLAN: 72 yof with PMhx of DVT on coumadin, neurogenic bladder with incontinence/ retention, admitted with septic shock secondary to UTI, diarrhea, and abdominal pain.; 1. Sinuoatrial block with no conducted P waves 6 sec, ?afib with pause/ Ventricular bigeminy- asymptomatic per pt. would benefit from heart cath and PPM placement. accepted at [facility] by Dr Gian Marcum for transfer. awaiting bed availability. cleared by ID for PPM placement 2. Septic shock, likely secondary to complicated UTI with obstructive uropathy/ Right ureteral stone with hydroureteronephrosis- clinically improved. off pressors>48H. on Zosyn day 3. will need to f/u with urology as outpatient for cystoscopy and stent placement. not emergent at this time. quinolone allergy/ sulfa allergy 3, Diarrhea- improved. cdiff negative 4. Tropinemia- trended down. likely demand ischemia however can not r/o blockage. cardiac cath prior to discharge 5. Severe systolic cardiomypathy (EF 30-35%)/Grade II diastolic dysfunction. 6. DVT - on coumadin. would hold at present time for impending procedure. place on hep ggt 7. RLS 8. morbid obesity- BMI 47.8 9. DVT ppx- hep ggt 10. stable for [facility]. awaiting transfer to [facility]. The care of this patient involved high complexity decision making to prevent further life threatening deterioration of the patient's condition and/or to evaluate & treat vital organ system(s) failure or risk of failure. 38 minutes
[2017-12-25] MEDS: WARFARIN NA 5 MG TABLET (UD) PO SCH (18:00)
[2017-12-25] MEDS: HEPARIN SOD,PORK IN 0.45% NACL 25,000 UNITS/500 ML INFUS.BAG IVPB SCH (18:00)
[2017-12-25] MEDS: CHLORHEXIDINE GLUCONATE 4% CLEANSER FOR DECOLONIZATION TP SCH (21:55)
[2017-12-25] MEDS: ROSUVASTATIN CA 10 MG TABLET (FP) PO SCH (21:55)
[2017-12-25] MEDS: rOPINIRole HCL 2 MG TABLET (FP) PO SCH (21:55)
[2017-12-25] MEDS: DESMOPRESSIN ACETATE 0.2 MG TABLET PO SCH (21:55)
[2017-12-26 01:54] VITALS: BP 126/72; PULSE 84; TEMP 98.4
--- NOTE | 2017-12-26 13:21 | EKG ---
Test Reason : Blood Pressure : / mmHG Vent. Rate : 075 BPM Atrial Rate : 075 BPM P-R Int : 170 ms QRS Dur : 136 ms QT Int : 414 ms P-R-T Axes : 046 -15 025 degrees QTc Int : 462 ms SINUS RHYTHM WITH OCCASIONAL PREMATURE VENTRICULAR COMPLEXES RIGHT BUNDLE BRANCH BLOCK ABNORMAL ECG WHEN COMPARED WITH ECG OF 22-DEC-2017 12:06, PREMATURE VENTRICULAR COMPLEXES ARE NOW PRESENT QT HAS SHORTENED Confirmed by JANNIE BUTTS, DOREEN ([id number]) on 12/26/2017 1:20:35 PM Referred By: KATHRYN MCCRARY DR Confirmed By:DOREEN VALDERRAMA MD
== END 2017-12-25 22:00 | disposition short-term general hospital (02) | DRG 871 ==
LOC: JER 11:18 → JERBED 13:25 → JICU 18:46
PROVIDERS: ADMIT Hospitalist; ATTEND Internal Medicine
DX: A41.9 Sepsis, unspecified organism (principal); R65.21 Severe sepsis with septic shock; N39.0 Urinary tract infection, site not specified; N17.9 Acute kidney failure, unspecified; Z68.42 Body mass index [BMI] 45.0-49.9, adult; I42.9 Cardiomyopathy, unspecified; E87.2 Acidosis; I44.2 Atrioventricular block, complete; N13.30 Unspecified hydronephrosis; J98.11 Atelectasis; E78.5 Hyperlipidemia, unspecified; R41.82 Altered mental status, unspecified; E87.6 Hypokalemia; R19.7 Diarrhea, unspecified; N31.9 Neuromuscular dysfunction of bladder, unspecified; G25.81 Restless legs syndrome; E66.01 Morbid (severe) obesity due to excess calories; I11.0 Hypertensive heart disease with heart failure; I50.9 Heart failure, unspecified; E11.9 Type 2 diabetes mellitus without complications; E83.42 Hypomagnesemia; E83.39 Other disorders of phosphorus metabolism; I95.9 Hypotension, unspecified; J45.909 Unspecified asthma, uncomplicated
CPT/HCPCS: 36415; 70450-TC; 71045-TC-FY; 74176-TC; 76775-TC; 76856-TC; 80048; 80053; 81003; 81015; 82550; 82553; 82803; 83605; 83735; 84100; 84484; 85025; 85610; 85730; 87040; 87045; 87046; 87086; 87186; 87324; 87449; 87804; 93005; 93010; 93306-TC; 94640; 99285-25; J0131; J1644; J7030

== ENCOUNTER 2019-09-03 07:17 | Day surgery (SDC) | payer OTHER ==
[2019-09-03 08:09] VITALS: BMI 44.4
[2019-09-03 09:14] VITALS: TEMP 98
[2019-09-03 09:45] VITALS: BP 132/64; PULSE 66
--- NOTE | 2019-09-04 16:19 | PATH ---
Surgical Pathology Report Patient Name: ROSALVA MCCALLUM [facility]. Rec. #: [id number] /Age/Gender: 1945 (Age: 73) / F Account: [id number] Location: [facility]-ENDOSCOPY Taken: 09/03/2019 Received: 09/03/2019 Reported: 09/04/2019 Physicians: Corin Trinidad M.D. Specimen(s) Received A: SIGMOID COLON POLYPS B: DESCENDING COLON POLYP C: DISTAL TRANSVERSE COLON POLYP D: ILEOCECAL VALVE POLYP Clinical History Polyp surveillance Postoperative diagnosis: Diverticulosis, polyps Final Diagnosis A. SIGMOID COLON, POLYPS, POLYPECTOMY: TUBULAR ADENOMA(S). B. DESCENDING COLON, POLYP, POLYPECTOMY: TUBULAR ADENOMA. C. DISTAL TRANSVERSE COLON, POLYP, POLYPECTOMY: TUBULAR ADENOMA. D. ILEOCECAL VALVE, POLYP, BIOPSY: TUBULAR ADENOMA. Electronically Signed Ilana Lazaro M.D. Gross Description A. Received in formalin, labeled "sigmoid colon polyps" are 2 mcgee, irregular portions of soft tissue measuring 0.2 and 0.5 cm. in greatest dimension. The specimens are submitted in toto in one cassette. B. Received in formalin, labeled "descending colon polyp" are 2 mcgee, irregular portions of soft tissue measuring 0.1 and 0.2 cm. in greatest dimension. The specimens are submitted in toto in one cassette. C. Received in formalin, labeled "distal transverse colon polyp" are 2 mcgee, irregular portions of soft tissue measuring 0.4 and 0.5 cm. in greatest dimension. The specimens are submitted in toto in one cassette. D. Received in formalin, labeled "biopsy ileocecal valve" is a mcgee, irregular portion of soft tissue measuring 0.1 cm. in greatest dimension. The specimen is submitted in toto in one cassette. 09/03/201909/03/2019
== END 2019-09-03 10:35 | disposition home or self-care (01) ==
LOC: JASU-ENDO 07:17
PROVIDERS: ATTEND Internal Medicine Gastroenterology
PROC: 0DBL8ZX Excision of Transverse Colon, Via Natural or Artificial Opening Endoscopic, Diagnostic (ICD-10-PCS; 2019-09-03)
PROC: 0DBN8ZX Excision of Sigmoid Colon, Via Natural or Artificial Opening Endoscopic, Diagnostic (ICD-10-PCS; 2019-09-03)
PROC: 0DBC8ZX Excision of Ileocecal Valve, Via Natural or Artificial Opening Endoscopic, Diagnostic (ICD-10-PCS; 2019-09-03)
PROC: 0DBM8ZX Excision of Descending Colon, Via Natural or Artificial Opening Endoscopic, Diagnostic (ICD-10-PCS; principal; 2019-09-03 08:00)
DX: Z12.11 Encounter for screening for malignant neoplasm of colon (principal); D12.4 Benign neoplasm of descending colon; D12.5 Benign neoplasm of sigmoid colon; D12.3 Benign neoplasm of transverse colon; K57.30 Diverticulosis of large intestine without perforation or abscess without bleeding

== ENCOUNTER 2023-09-20 16:52 | Emergency (ER) | payer OTHER ==
[2023-09-20] MEDS ORDERED: DEXAMETHASONE LIQUID 0.5 MG/5 ML PO ONE (16:58)
[2023-09-20 17:06] VITALS: BP 142/76; RESP 20; TEMP 98.2; BMI 47.8
[2023-09-20] MEDS ORDERED: ALBUTEROL SO4 2.5/IPRATROPIUM 0.5 INH SOL 3 ML VIAL.NEB. NEB ONE (17:06)
[2023-09-20] MEDS ORDERED: DEXAMETHASONE SOD PHOSPHATE 10 MG/1 ML VIAL ONE (17:06)
[2023-09-20] MEDS: ALBUTEROL SO4 2.5/IPRATROPIUM 0.5 INH SOL 3 ML VIAL.NEB. NEB SCH ×4 (17:21→17:59)
[2023-09-20] MEDS ORDERED: ALBUTEROL SO4 0.083% IH SOL 2.5 MG/3 ML VIAL.NEB. NEB ONE ×2 (18:30→18:31)
[2023-09-20 19:35] VITALS: PULSE 91
== END 2023-09-20 19:00 | disposition home or self-care (01) ==
LOC: FER 16:52
PROC: 3E0F7GC Introduction of Other Therapeutic Substance into Respiratory Tract, Via Natural or Artificial Opening (ICD-10-PCS; principal; 2023-09-20)
PROC: 3E0F7GC Introduction of Other Therapeutic Substance into Respiratory Tract, Via Natural or Artificial Opening (ICD-10-PCS; 2023-09-20)
DX: R06.02 Shortness of breath (principal); R05.9 Cough, unspecified; R09.81 Nasal congestion; R09.3 Abnormal sputum; M54.6 Pain in thoracic spine; J06.9 Acute upper respiratory infection, unspecified; J45.901 Unspecified asthma with (acute) exacerbation; Z20.822 Contact with and (suspected) exposure to COVID-19
CPT/HCPCS: 0241U-QW; 71046-TC-FY; 99284-25

== ENCOUNTER 2023-10-01 17:34 | Inpatient (IN) | payer OTHER ==
[2023-10-01 17:42] VITALS: BMI 43.5
[2023-10-01] MEDS ORDERED: MAGNESIUM SULF 50% (8.12 MEQ/2 ML-1 GM VIAL) IVPB ONE (18:19)
[2023-10-01] MEDS ORDERED: methylPREDNISolone NA SUCC 125 MG/2 ML VIAL IVPB ONE (18:19)
[2023-10-01] MEDS ORDERED: ALBUTEROL SO4 0.083% IH SOL 2.5 MG/3 ML VIAL.NEB. NEB ONE ×2 (18:19→19:10)
[2023-10-01] MEDS ORDERED: ALBUTEROL SO4 2.5/IPRATROPIUM 0.5 INH SOL 3 ML VIAL.NEB. NEB ONE ×2 (18:19→19:10)
[2023-10-01] MEDS ORDERED: methylPREDNISolone NA SUCC 125 MG/2 ML VIAL ONE (19:10)
[2023-10-01] MEDS ORDERED: MAGNESIUM SULFATE IN WATER 2 GM/50 ML IVPB IVPB ONE (19:10)
[2023-10-01 19:19] LABS: HEMATOCRIT 39.1 % (32.4-45.2); HEMOGLOBIN 12.8 G/dL (10.7-15.3); MCH 29.5 pg (25.7-33.7); MCHC 32.6 g/dl (32.0-36.0); MEAN CELL VOLUME 90.5 fl (80-96); MEAN PLT VOLUME 8.5 fl (7.5-11.1); PLATELET COUNT 173.6 10^3/uL (134-434); RBC 4.32 10^6/uL (3.60-5.2); RDW 16.3 % (11.6-15.6); WHITE BLOOD COUNT 11.7 10^3/uL (4.0-10.8)
[2023-10-01 19:34] LABS: ALBUMIN 3.8 g/dl (3.4-5.0); BILIRUBIN,TOTAL 0.4 mg/dl (0.2-1); CALCIUM 8.8 mg/dl (8.5-10.1); CREATININE 0.9 mg/dl (0.6-1.3); POTASSIUM 4.3 mmol/L (3.5-5.1); TOT PROT 6.1 g/dl (6.4-8.2)
[2023-10-01 19:38] LABS: PLATELET ESTIMATE ADEQUATE
[2023-10-01] MEDS ORDERED: FUROSEMIDE 40 MG/4 ML INJECTABLE VIAL IVPUSH ONE (21:29)
[2023-10-01] MEDS ORDERED: DOCUSATE SODIUM 100 MG CAPSULE (FP) PO PRN (21:30)
[2023-10-01] MEDS ORDERED: FUROSEMIDE 40 MG/4 ML INJECTABLE VIAL ONE (21:33)
[2023-10-01] MEDS ORDERED: ACETAMINOPHEN 1000 MG/100 ML BAG IVPB PRN (21:37)
[2023-10-01] MEDS ORDERED: ALBUTEROL SO4 0.083% IH SOL 2.5 MG/3 ML VIAL.NEB. NEB PRN (21:42)
[2023-10-01] MEDS: PANTOPRAZOLE 20 MG TABLET PO SCH (23:32)
[2023-10-01] MEDS: INSULIN ASPART SLIDING SCALE (NOVOLOG) 1 VIAL SQ SCH (23:37)
[2023-10-02] MEDS: methylPREDNISolone NA SUCC 40 MG/1 ML VIAL IVPUSH SCH ×3 (01:55→18:44)
[2023-10-02] MEDS ORDERED: PATIENT'S OWN MEDICATION (NON-FORMULARY) (Cyclosporine [Restasis] 1 EACH Droperette) OP PRN (05:44)
[2023-10-02] MEDS ORDERED: FUROSEMIDE 40 MG/4 ML INJECTABLE VIAL IVPUSH ONE (06:45)
[2023-10-02] MEDS: INSULIN ASPART SLIDING SCALE (NOVOLOG) 1 VIAL SQ SCH ×4 (06:47→21:29)
[2023-10-02] MEDS: LEVOTHYROXINE NA 50 MCG TABLET (FP) PO SCH (06:47)
[2023-10-02 07:45] LABS: INR 1.13 (0.83-1.09); PROTHROMBIN TIME (PATIENT) 13.1 SEC (9.7-13.0)
[2023-10-02 07:48] LABS: ACTIVATED PTT 21.3 SECONDS (25.2-36.5)
[2023-10-02 08:15] LABS: CALCIUM 8.7 mg/dl (8.5-10.1); CREATININE 0.7 mg/dl (0.6-1.3); POTASSIUM 3.9 mmol/L (3.5-5.1)
[2023-10-02] MEDS: ASPIRIN COATED 81 MG TABLET.EC PO SCH (09:45)
[2023-10-02] MEDS: DIVALPROEX NA *ER* EXTEND REL 500 MG TABLET.SA (FP) PO SCH ×2 (09:46→21:00)
[2023-10-02] MEDS: MULTIVITAMINS THER W-MINERALS COMBO TABLET (FP) PO SCH (09:46)
[2023-10-02] MEDS: amLODIPine BESYLATE 5 MG TABLET (FP) PO SCH (09:46)
[2023-10-02] MEDS: FOLIC ACID 1 MG TABLET (FP) PO SCH (09:47)
[2023-10-02] MEDS: ENOXAPARIN NA (PORCINE) 40 MG/0.4 ML DISP.SYRIN SQ SCH (09:47)
[2023-10-02] MEDS: PANTOPRAZOLE 20 MG TABLET PO SCH (09:47)
[2023-10-02] MEDS: AMMONIUM LACTATE 12% LOTION 225 GM BOTTLE TP SCH (10:41)
[2023-10-02] MEDS: FLUTICASONE/UMECLIDIN/VILANTER(200-62.5-25 TRELEGY ELLIPTA) INAHLER IH SCH (10:42)
[2023-10-02] MEDS: FUROSEMIDE 40 MG/4 ML INJECTABLE VIAL IVPUSH SCH (12:08)
[2023-10-02] MEDS: ALBUTEROL SO4 0.083% IH SOL 2.5 MG/3 ML VIAL.NEB. NEB SCH ×3 (16:18→21:00)
[2023-10-02] MEDS: PRAMIPEXOLE DIHYDROCHLORIDE 1 MG TABLET PO SCH (21:00)
[2023-10-02] MEDS: ROSUVASTATIN CA 10 MG TABLET PO SCH (21:00)
[2023-10-03] MEDS: ACETAMINOPHEN 325 MG TABLET (FP) PO PRN (01:29)
[2023-10-03] MEDS: methylPREDNISolone NA SUCC 40 MG/1 ML VIAL IVPUSH SCH (02:19)
[2023-10-03] MEDS: LEVOTHYROXINE NA 50 MCG TABLET (FP) PO SCH (06:18)
[2023-10-03] MEDS: INSULIN ASPART SLIDING SCALE (NOVOLOG) 1 VIAL SQ SCH ×4 (06:18→21:12)
[2023-10-03 07:59] LABS: HEMATOCRIT 37.3 % (32.4-45.2); HEMOGLOBIN 12.4 G/dL (10.7-15.3); MCH 30.1 pg (25.7-33.7); MCHC 33.3 g/dl (32.0-36.0); MEAN CELL VOLUME 90.5 fl (80-96); MEAN PLT VOLUME 8.1 fl (7.5-11.1); PLATELET COUNT 182.3 10^3/uL (134-434); RBC 4.12 10^6/uL (3.60-5.2); RDW 15.7 % (11.6-15.6); WHITE BLOOD COUNT 11.3 10^3/uL (4.0-10.8)
[2023-10-03] MEDS: FUROSEMIDE 40 MG/4 ML INJECTABLE VIAL IVPUSH SCH (09:19)
[2023-10-03] MEDS: DIVALPROEX NA *ER* EXTEND REL 500 MG TABLET.SA (FP) PO SCH ×2 (09:19→21:12)
[2023-10-03] MEDS: PANTOPRAZOLE 20 MG TABLET PO SCH (09:20)
[2023-10-03] MEDS: ASPIRIN COATED 81 MG TABLET.EC PO SCH (09:21)
[2023-10-03] MEDS: predniSONE 20 MG TABLET (UD) PO SCH ×2 (09:22→21:11)
[2023-10-03] MEDS: PRAMIPEXOLE DIHYDROCHLORIDE 1 MG TABLET PO SCH ×2 (09:23→21:11)
[2023-10-03] MEDS: FOLIC ACID 1 MG TABLET (FP) PO SCH (09:26)
[2023-10-03] MEDS: ALBUTEROL SO4 0.083% IH SOL 2.5 MG/3 ML VIAL.NEB. NEB SCH ×4 (09:26→21:13)
[2023-10-03] MEDS: ENOXAPARIN NA (PORCINE) 40 MG/0.4 ML DISP.SYRIN SQ SCH (09:26)
[2023-10-03] MEDS: MULTIVITAMINS THER W-MINERALS COMBO TABLET (FP) PO SCH (09:27)
[2023-10-03 09:28] LABS: CALCIUM 8.8 mg/dl (8.5-10.1); CREATININE 0.8 mg/dl (0.6-1.3); PHOSPHOROUS 3.3 (2.5-4.9); POTASSIUM 3.6 mmol/L (3.5-5.1)
[2023-10-03] MEDS: AMMONIUM LACTATE 12% LOTION 225 GM BOTTLE TP SCH (09:28)
[2023-10-03] MEDS: FLUTICASONE/UMECLIDIN/VILANTER(200-62.5-25 TRELEGY ELLIPTA) INAHLER IH SCH (09:28)
[2023-10-03] MEDS: amLODIPine BESYLATE 5 MG TABLET (FP) PO SCH (10:00)
[2023-10-03] MEDS: ROSUVASTATIN CA 10 MG TABLET PO SCH (21:11)
[2023-10-04] MEDS: ACETAMINOPHEN 325 MG TABLET (FP) PO PRN (03:02)
[2023-10-04] MEDS: LEVOTHYROXINE NA 50 MCG TABLET (FP) PO SCH (06:13)
[2023-10-04] MEDS: INSULIN ASPART SLIDING SCALE (NOVOLOG) 1 VIAL SQ SCH ×4 (06:40→22:36)
[2023-10-04 07:25] LABS: HEMATOCRIT 37.4 % (32.4-45.2); HEMOGLOBIN 12.2 G/dL (10.7-15.3); MCH 29.4 pg (25.7-33.7); MCHC 32.6 g/dl (32.0-36.0); MEAN CELL VOLUME 90.2 fl (80-96); PLATELET COUNT 160.7 10^3/uL (134-434); RBC 4.15 10^6/uL (3.60-5.2); RDW 15.6 % (11.6-15.6); WHITE BLOOD COUNT 10.8 10^3/uL (4.0-10.8)
[2023-10-04 07:53] LABS: CALCIUM 8.6 mg/dl (8.5-10.1); CREATININE 0.7 mg/dl (0.6-1.3); MAGNESIUM 1.9 mg/dL (1.8-2.4); PHOSPHOROUS 3.1 (2.5-4.9); POTASSIUM 4.1 mmol/L (3.5-5.1)
[2023-10-04] MEDS: PRAMIPEXOLE DIHYDROCHLORIDE 1 MG TABLET PO SCH ×2 (09:27→21:25)
[2023-10-04] MEDS: ALBUTEROL SO4 0.083% IH SOL 2.5 MG/3 ML VIAL.NEB. NEB SCH ×4 (09:27→21:24)
[2023-10-04] MEDS: PANTOPRAZOLE 20 MG TABLET PO SCH (09:28)
[2023-10-04] MEDS: predniSONE 20 MG TABLET (UD) PO SCH (09:28)
[2023-10-04] MEDS: FOLIC ACID 1 MG TABLET (FP) PO SCH (09:28)
[2023-10-04] MEDS: MULTIVITAMINS THER W-MINERALS COMBO TABLET (FP) PO SCH (09:28)
[2023-10-04] MEDS: amLODIPine BESYLATE 5 MG TABLET (FP) PO SCH (09:28)
[2023-10-04] MEDS: ASPIRIN COATED 81 MG TABLET.EC PO SCH (09:28)
[2023-10-04] MEDS: FUROSEMIDE 40 MG/4 ML INJECTABLE VIAL IVPUSH SCH (09:28)
[2023-10-04] MEDS: DIVALPROEX NA *ER* EXTEND REL 500 MG TABLET.SA (FP) PO SCH ×2 (09:28→21:25)
[2023-10-04] MEDS: ENOXAPARIN NA (PORCINE) 40 MG/0.4 ML DISP.SYRIN SQ SCH (09:29)
[2023-10-04] MEDS: AMMONIUM LACTATE 12% LOTION 225 GM BOTTLE TP SCH (09:29)
[2023-10-04] MEDS: FLUTICASONE/UMECLIDIN/VILANTER(200-62.5-25 TRELEGY ELLIPTA) INAHLER IH SCH (09:30)
[2023-10-04] MEDS: methylPREDNISolone NA SUCC 40 MG/1 ML VIAL IVPUSH SCH ×2 (15:56→21:24)
[2023-10-04] MEDS ORDERED: NYSTATIN/DPHA/LIDO/SUCRAFATE 120 ML MOUTHWASH MM SCH (18:00)
[2023-10-04] MEDS: ROSUVASTATIN CA 10 MG TABLET PO SCH (21:25)
[2023-10-05] MEDS: methylPREDNISolone NA SUCC 40 MG/1 ML VIAL IVPUSH SCH ×2 (03:36→09:48)
[2023-10-05] MEDS: MAG HYDROX/ALH/SMC/DPHA/LIDO 240 ML MOUTHWASH MM SCH ×3 (05:35→11:31)
[2023-10-05] MEDS: INSULIN ASPART SLIDING SCALE (NOVOLOG) 1 VIAL SQ SCH ×2 (06:11→11:31)
[2023-10-05] MEDS: LEVOTHYROXINE NA 50 MCG TABLET (FP) PO SCH (06:11)
[2023-10-05] MEDS: PRAMIPEXOLE DIHYDROCHLORIDE 1 MG TABLET PO SCH (08:31)
[2023-10-05] MEDS: ALBUTEROL SO4 0.083% IH SOL 2.5 MG/3 ML VIAL.NEB. NEB SCH ×2 (09:48→14:10)
[2023-10-05] MEDS: ENOXAPARIN NA (PORCINE) 40 MG/0.4 ML DISP.SYRIN SQ SCH (09:48)
[2023-10-05] MEDS: FUROSEMIDE 40 MG/4 ML INJECTABLE VIAL IVPUSH SCH (09:48)
[2023-10-05] MEDS: ASPIRIN COATED 81 MG TABLET.EC PO SCH (09:49)
[2023-10-05] MEDS: DIVALPROEX NA *ER* EXTEND REL 500 MG TABLET.SA (FP) PO SCH (09:49)
[2023-10-05] MEDS: amLODIPine BESYLATE 5 MG TABLET (FP) PO SCH (09:49)
[2023-10-05] MEDS: FOLIC ACID 1 MG TABLET (FP) PO SCH (09:49)
[2023-10-05] MEDS: PANTOPRAZOLE 20 MG TABLET PO SCH (09:49)
[2023-10-05] MEDS: MULTIVITAMINS THER W-MINERALS COMBO TABLET (FP) PO SCH (09:49)
[2023-10-05] MEDS: FLUTICASONE/UMECLIDIN/VILANTER(200-62.5-25 TRELEGY ELLIPTA) INAHLER IH SCH (09:50)
[2023-10-05] MEDS: AMMONIUM LACTATE 12% LOTION 225 GM BOTTLE TP SCH (09:51)
[2023-10-05 13:11] VITALS: RESP 18
[2023-10-05 13:42] VITALS: BP 114/58; PULSE 96; TEMP 98.2
[2023-10-06] MEDS ORDERED: predniSONE 20 MG TABLET (UD) PO SCH (10:00)
== END 2023-10-05 15:53 | disposition home or self-care (01) | DRG 202 ==
LOC: FER 17:34 → FM/S 21:44
PROVIDERS: ADMIT Internal Medicine; ATTEND Internal Medicine
DX: J45.41 Moderate persistent asthma with (acute) exacerbation (principal); I50.23 Acute on chronic systolic (congestive) heart failure; J96.01 Acute respiratory failure with hypoxia; J44.1 Chronic obstructive pulmonary disease with (acute) exacerbation; E78.5 Hyperlipidemia, unspecified; E03.9 Hypothyroidism, unspecified; I11.0 Hypertensive heart disease with heart failure
CPT/HCPCS: 0241U-QW; 36415; 71045-TC-FY; 71250-TC; 80048; 80053; 81003; 81015; 82962; 83735; 83880; 84100; 85025; 85027; 85610; 85730; 87086; 87186; 93005; 93306-TC; 94640; 97116-GP; 97162-GP; 99285-25

== ENCOUNTER 2025-05-07 06:19 | Day surgery (SDC) | payer OTHER ==
[2025-05-04 12:11] VITALS: BMI 42.5
[2025-05-07] MEDS ORDERED: BUPIVACAINE HCL/PF 0.75% 10 ML VIAL ONE (07:50)
[2025-05-07] MEDS ORDERED: LIDOCAINE HCL/PF 1% SDV 5ML VIAL ONE (07:51)
[2025-05-07] MEDS ORDERED: ACETAMINOPHEN 500 MG TABLET (FP) PO PRN (08:33)
[2025-05-07] MEDS: LIDOCAINE HCL 1% PRESERVATIVE FREE - 30ML VIAL IJ ONE ×2 (08:39)
[2025-05-07] MEDS: BUPIVACAINE HCL/PF 0.75% 10 ML VIAL NR ONE ×2 (08:43)
[2025-05-07 09:21] VITALS: BP 103/61; PULSE 80; RESP 16; TEMP 97.2
== END 2025-05-07 09:50 | disposition home or self-care (01) ==
LOC: JASU-SURG 06:19
PROVIDERS: ATTEND Pain Medicine Pain Medicine
PROC: 3E0T33Z Introduction of Anti-inflammatory into Peripheral Nerves and Plexi, Percutaneous Approach (ICD-10-PCS; 2025-05-07)
PROC: 3E0T3BZ Introduction of Anesthetic Agent into Peripheral Nerves and Plexi, Percutaneous Approach (ICD-10-PCS; principal; 2025-05-07 08:15)
DX: M47.816 Spondylosis without myelopathy or radiculopathy, lumbar region (principal)
CPT/HCPCS: 76000-TC-FY